=== PATIENT | female | born 1985 | race Caucasian/White ===

== ENCOUNTER 2018-07-18 16:56 | Observation (INO) | payer SELFPAY ==
--- NOTE | 2018-07-18 17:18 | ED ---
HPI Chest Pain - HPI Summary HPI Summary: A 32 y/o F with pert PMHx: Factor 5 presents to ED with c/o CP onset 2-3 days ago. Associated sx: R calf pain that radiates to her thigh, chills, n/v. She takes Coumadin 7.5 mg. She has had a GI bug recently, so she hasnt been able to keep anything (including her Coumadin) down. PMHx: PE 2x, DVT 4x, asthma. [facility]: 2 weeks ago. - History of Current Complaint Chief Complaint: EDChestPainROMI Hx Obtained From: Patient Onset/Duration: Started Days Ago, Still Present Timing: Constant Initial Severity: Moderate Current Severity: Moderate Pain Intensity: 7 Pain Scale Used: 0-10 Numeric Associated Signs and Symptoms: Positive: Chills, Nausea, Calf Pain/Swelling, Vomiting - Allergy/Home Medications Allergies/Adverse Reactions: Allergies Allergy/AdvReac Type Severity Reaction Status Date / Time Cephalosporins Allergy Hives Verified 07/18/18 16:59 ibuprofen Allergy Hives Verified 07/18/18 16:59 iodine Allergy Itching Verified 07/18/18 16:59 ketorolac [From Toradol] Allergy Hives Verified 07/18/18 16:59 moxifloxacin [From Avelox] Allergy Hives Verified 07/18/18 16:59 Penicillins Allergy Hives Verified 07/18/18 16:59 raspberry Allergy Anaphylatic Verified 07/18/18 16:59 Shock tramadol Allergy Hives Verified 07/18/18 16:59 Tree Nuts Allergy Anaphylatic Verified 07/18/18 16:59 Shock Home Medications: Home Medications Acetaminophen TAB* [Tylenol TAB*] 650 mg PO Q4H PRN 07/19/18 [History Confirmed 07/19/18] Albuterol HFA INHALER* [Ventolin HFA Inhaler*] 2 puff INH Q4H PRN 07/19/18 [ History Confirmed 07/19/18] Gabapentin 900 mg PO BEDTIME 07/19/18 [History Confirmed 07/19/18] Quetiapine Fumarate [Seroquel 400 MG] 800 mg PO BEDTIME 07/19/18 [History Confirmed 07/19/18] Sertraline* [Zoloft*] 200 mg PO BEDTIME 07/19/18 [History Confirmed 07/19/18] Trazodone HCl 300 mg PO BEDTIME 07/19/18 [History Confirmed 07/19/18] Warfarin Sodium [Coumadin] 7.5 mg PO BEDTIME 07/19/18 [History Confirmed ] lamoTRIgine [Lamictal] 200 mg PO BEDTIME 07/19/18 [History Confirmed 07/19/18] PMH/Surg Hx/FS Hx/Imm Hx Previously Healthy: No History: Reports: Hx Kidney Stones Psychiatric History: Reports: Hx Post Traumatic Stress Disorder - Surgical History Surgery Procedure, Year, and Place: [facility] Infectious Disease History: No Infectious Disease History: Denies: Traveled Outside the [place] in Last 30 Days - Family History Known Family History: Positive: Cardiac Disease, Diabetes Family History: Breast CA - mom - Social History Occupation: Unemployed - OTHER Lives: Alone Alcohol Use: Occasionally Hx Substance Use: No Substance Use Type: Reports: None Smoking Status (MU): Unknown if Ever Smoked Review of Systems Positive: Chills Positive: Chest Pain Positive: Vomiting, Nausea Musculoskeletal: Other - pos: R calf pain All Other Systems Reviewed And Are Negative: Yes Physical Exam - Summary Physical Exam Summary: GENERAL: Patient is a well-developed and nourished FEMALE who is lying comfortable in the stretcher. Patient is not in any acute respiratory distress. HEAD AND FACE: Normocephalic EYES: PERRLA, EOMI x 2. EARS: Hearing grossly intact. MOUTH: Oropharynx within normal limits. NECK: Supple, trachea is midline, no adenopathy, no JVD, no carotid bruit. CHEST: Symmetric, no tenderness at palpation LUNGS: Clear to auscultation bilaterally. Faint expiratory wheezes. CVS: Regular rhythm, Tachy, S1 and S2 present, no murmurs or gallops appreciated. ABDOMEN: Soft, non-tender. Bowel sounds are normal. No abdominal abnormal pulsations. EXTREMITIES: Full ROM in all major joints, no edema, no cyanosis or clubbing. Tenderness to palpation in R calf. NEURO: Alert and oriented x 3. No acute neurological deficits. Speech is normal and follows commands. SKIN: Dry and warm, pale Triage Information Reviewed: Yes Vital Signs On Initial Exam: Initial Vitals Temp Pulse Resp BP Pulse Ox 96.5 F 126 22 108/88 98 07/18/18 16:59 07/18/18 16:59 07/18/18 16:59 07/18/18 16:59 07/18/18 16:59 Vital Signs Reviewed: Yes Diagnostics - Vital Signs Vital Signs Temp Pulse Resp BP Pulse Ox 07/18/18 16:59 96.5 F 126 22 108/88 98 - Laboratory Result Diagrams: 07/19/18 11:05 07/19/18 10:30 Lab Statement: Any lab studies that have been ordered have been reviewed, and results considered in the medical decision making process. - EKG 1708 Cardiac Rate: Tachycardia - 120 bpm EKG Rhythm: Sinus Tachycardia Summary of EKG Findings: Normal axis. Re-Evaluation - Re-Evaluation 1 Re-Evaluation Time: 18:22 Change: Unchanged Comment: Placing IV line. Chest Pain Course/Dx - Course Course Of Treatment: A 32 y/o F with pert PMHx: Factor 5 presents R calf pain and CP onset 2-3 days ago. She has chills, n/v which is preventing her from taking her Coumadin. EKG is sinus tachy with normal axis. Pt will be signed out to Dr. Alcantar at shift change pending labs, [facility], . - Diagnoses Provider Diagnoses: Vomiting - Critical Care Time Critical Care Time: 30-74 min Discharge - Sign-Out/Discharge Documenting (check all that apply): Sign-Out Patient Signing out patient TO: Oleksandr Alcantar - pending labs, [facility], [place] Patient Received Moderate/Deep Sedation with Procedure: No - Discharge Plan Condition: Guarded Disposition: ADMITTED TO [facility] - Billing Disposition and Condition Condition: GUARDED Disposition: Admitted to [facility] - Attestation Statements Document Initiated by Scribe: Yes Documenting Scribe: Lea Mathur Provider For Whom Scribe is Documenting (Include Credential): Dr. Opal Dorsey MD Scribe Attestation: Lea Flores scribed for Dr. Opal Dorsey MD on 07/19/18 at 1453. Scribe Documentation Reviewed: Yes Provider Attestation: The documentation as recorded by the Lea kemp accurately reflects the service I personally performed and the decisions made by me, Dr. Opal Dorsey MD Status of Scribe Document: Viewed
[2018-07-18] MEDS ORDERED: NS 0.9% 1000 ML** 1,000 ML IV ONE ×3 (17:25→22:37)
[2018-07-18] MEDS ORDERED: Ondansetron INJ* 2 MG/ML VIAL IV ONE (17:25)
[2018-07-18] MEDS ORDERED: diPHENhydraMINE IV* 50 MG in NS 0.9% 50 ML* 50 ML IVPB ONE (17:35)
[2018-07-18] MEDS ORDERED: Acetaminophen TAB* 325 MG PO ONE (17:35)
[2018-07-18] MEDS ORDERED: methylPREDNISolone 125 MG* 2 ML VIAL IV ONE (17:35)
[2018-07-18] MEDS ORDERED: fentaNYL* 50 MCG/ML 2 ML VIAL (100 MCG VIAL) IV SLOW PU ONE ×2 (17:36→20:11)
[2018-07-18] MEDS ORDERED: Iohexol 350* (CONTRAST) 500 ML MDV IV ONE (18:05)
[2018-07-18 18:39] LABS: Hematocrit 30 % (33-41); Hemoglobin 9.5 g/dL (12.0-16.0); Mean Corpuscular HGB Conc 32 g/dL (31-36); Mean Corpuscular Hemoglobin 27 pg (27-31); Mean Corpuscular Volume 83 fL (80-97); Red Blood Count 3.58 10^6 /uL (3.70-4.87); Red Cell Distribution Width 18 % (10.5-15)
[2018-07-18 18:54] LABS: ABS Basophils 0 10^3/ul (0-0.2); ABS Eosinophils 0 10^3/ul (0-0.6); ABS Lymphocytes 1.4 10^3/ul (1.0-4.8); ABS Monocytes 0.4 10^3/ul (0-0.8); ABS Neutrophils 3.2 10^3/ul (1.5-7.7); ABS Nucleated RBC 0 10^3/ul; Eosinophil % 0.1 %; Lymphocyte % 27.8 %; Mean Platelet Volume 7.3 fL (7.4-10.4); Nucleated Red Blood Cells % 0.2; Platelet Count 243 10^3/uL (150-450)
[2018-07-18 19:12] LABS: Activated Partial Thrombo Time 26.5 seconds (26.0-36.3)
[2018-07-18 19:21] LABS: ALT 14 U/L (7-52); AST 7 U/L (13-39); Albumin 3.6 g/dL (3.2-5.2); Albumin/Globulin Ratio 1.7 (1-3); Alkaline Phosphatase 66 U/L (34-104); Anion Gap 4 mmol/L (2-11); BUN/Creatinine Ratio 15.4 (8-20); Blood Urea Nitrogen 10 mg/dL (6-24); CO2 Carbon Dioxide 26 mmol/L (22-32); Calcium 8.1 mg/dL (8.6-10.3); Chloride 108 mmol/L (101-111); EGFR African American 127.8 (>60); EGFR Non-African American 105.6 (>60); Globulin 2.1 g/dL (2-4); Glucose 111 mg/dL (70-100); Potassium 3.7 mmol/L (3.5-5.0); Sodium 138 mmol/L (135-145); Total Protein 5.7 g/dL (6.4-8.9)
[2018-07-18 19:28] LABS: HCG Pregnancy < 0.60 mIU/mL
--- NOTE | 2018-07-18 19:32 | ED ---
Progress - Progress Note Progress Note: Receiving sign-out from Dr. Dorsey to Dr. Alcantar at 1900. U/S Venous Doppler Study Right Lower Extremity Veins: No acute findings. No evidence of deep vein thrombosis. ED Provider has reviewed this report. The patient has continued vomiting while at the hospital who has been unable to take her anticoagulant medication. Patient care was discussed with Dr. Pathak, Hospitalist, who agreed to admit the patient. Re-Evaluation - Re-Evaluation First Eval Re-Evaluation Time: 20:19 Change: Unchanged Comment: Discussed results with patient and plan for admission. Course/Dx - Course Course Of Treatment: Receiving sign-out from Dr. Dorsey to Dr. Alcantar at 1900. U/ S Venous Doppler Study Right Lower Extremity Veins: No acute findings. No evidence of deep vein thrombosis. ED Provider has reviewed this report. The patient has continued vomiting while at the hospital who has been unable to take her anticoagulant medication. The patient's labs and imaging were unremarkable for DVT. At 2020, patient care was discussed with Dr. Pathak, Hospitalist, who agreed to admit the patient. - Diagnoses Provider Diagnoses: Vomiting - Provider Notifications Discussed Care Of Patient With: Piotr Pathak - Hospitalgerard Time Discussed With Above Provider: 20:21 Instructed by Provider To: Admit As Inpatient Discharge - Sign-Out/Discharge Documenting (check all that apply): Patient Departure - Admission Receiving patient FROM: Opal Dorsey - At 1900 Patient Received Moderate/Deep Sedation with Procedure: No - Discharge Plan Disposition: ADMITTED TO [facility] Referrals: No Primary Care Phys,NOPCP [Primary Care Provider] - - Attestation Statements Document Initiated by Scribe: Yes Documenting Scribe: Piotr Mchugh Provider For Whom Angie is Documenting (Include Credential): Oleksandr Alcantar MD [place] Attestation: Piotr Flores, gurpreetibed for Oleksandr Alcantar MD on 07/18/18 at 2026. Status of Scribe Document: Ready
[2018-07-18] MEDS ORDERED: Metoclopramide IV* 5 MG/ML 2 ML VIAL IV SLOW PU ONE (20:22)
[2018-07-18] MEDS ORDERED: Enoxaparin(*) 100 MG/ML SYR SUBCUT ONE (20:23)
[2018-07-18] MEDS ORDERED: Acetaminophen TAB* 325 MG PO PRN (22:21)
[2018-07-18] MEDS ORDERED: Morphine INJ* 2 MG/ML 1 ML SYRINGE (TWO MG - NEW SYRINGE VERSION) IV PRN (22:21)
[2018-07-18] MEDS ORDERED: Ondansetron INJ* 2 MG/ML VIAL IV PRN (22:21)
[2018-07-18] MEDS ORDERED: NS 0.9% 1000 ML** 1,000 ML IV SCH (22:30)
[2018-07-18 22:56] LABS: Magnesium 1.8 mg/dL (1.9-2.7)
[2018-07-19] MEDS ORDERED: Morphine INJ* 2 MG/ML 1 ML SYRINGE (TWO MG - NEW SYRINGE VERSION) IV PRN (00:26)
--- NOTE | 2018-07-19 07:03 | HP ---
CC: [facility], Dr. Bran HISTORY AND PHYSICAL: DATE OF ADMISSION: 07/18/18 PROVIDER: Pia Bedoya NP. ATTENDING PHYSICIAN WHILE IN THE HOSPITAL: Dr. Piotr Pathak (dictated by Pia Bedoya NP). CHIEF COMPLAINT: 1. Vomiting. 2. Chest pain. 3. Right leg pain. HISTORY OF PRESENT ILLNESS: Ms. Penn is a 32-year-old female with a past medical history signifi cant for factor V Leiden, antiphospholipid, Jose-Danlos syndrome, DVT x4, PE x2, PTSD who presented to the emergency room with complaints of right lower leg pain, chest pain, and vomiting. The patien t reports that approximately 2 to 3 days ago she awoke in the night with mild right lower leg pain. She reports over the past 2 to 3 days the pain has become progressively worse. She reports the pain as being sharp. She denies any recent injuries to the leg, any fall. She reports that approximately 1 day after developing the leg pain she developed chest pain that was constant and sharp in her righ t upper chest. She reports that it is not aggravated or alleviated by anything. She does report tabitha t walking makes it more difficult for her to breathe and she reports pain with taking deep breaths. She also reports she is unable to lie flat in her bed. She reports she has been having hot and cold spells at home. The patient also reports approximately 2 days ago she started with vomiting. She do es report recent exposure as her son has recently had a stomach bug. Due to her symptoms of chest pa in, shortness of breath, and right lower leg pain, we were asked to see and evaluate her for admissio n. PAST MEDICAL HISTORY: Significant for: 1. Factor V Leiden. 2. Antiphospholipid. 3. Jose-Danlos syndrome. 4. PTSD. 5. DVT x4. 6. PE x2. PAST SURGICAL HISTORY: 1. Eye surgery. 2. Left rotator cuff repair. 3. Thumb tendon repair. 4. Cholecystectomy. 5. Appendectomy. 6. Roxana fundoplication. 7. x2. 8. Back surgery. 9. Five surgeries on her left knee. 10. AVC filter placement. HOME MEDICATIONS: Include: 1. Trazodone 300 mg p.o. at h.s. 2. Zoloft 200 mg p.o. daily. 3. Seroquel 800 mg p.o. daily. 4. Coumadin 7.5 mg p.o. daily. 5. Lamictal 200 mg p.o. daily. 6. Gabapentin 300 mg at bedtime. These medications need to be confirmed through her pharmacy. Please get a medication list from the [facility]. ALLERGIES: She has an allergy to TRAMADOL, CEPHALOSPORINS, IBUPROFEN, IODINE, TORADOL, AVELOX, PENIC ILLIN, RASPBERRIES, TRAMADOL, TREE NUTS, SHELLFISH. FAMILY HISTORY: Father with a history of an [place] at age 42. No reported history of diabetes. Mother with a history of breast cancer. SOCIAL HISTORY: She denies any tobacco, alcohol, or illicit drug use. She is . She lives w ith her children and mother whom she cares for. Surrogate decision maker in the event she is unable to make her own decisions is her mother. REVIEW OF SYSTEMS: She does report feeling hot and cold tonight. She does report right-sided chest pain that is exacerbated with deep breath and exertion makes it hard to take a deep breath. She farhan es any cough, hemoptysis. She denies any gross hematuria or dysuria. She does report nausea and vom iting. Denies any diarrhea or abdominal pain. She denies any focal weakness or sensory loss, visual complaints, dysphagia, arthralgias, myalgia, rashes, lesions, psychosis, or anxiety. PHYSICAL EXAMINATION GENERAL: At this time, Ms. Penn is sitting on the stretcher in the emergency room. She is pale. She appears her stated age. She does not appear to be in any acute distress at this time. VITAL SIGNS: Blood pressure 136/81, temperature is 97.9, heart rate 68, respirations are 20, O2 satu ration is 99%. HEENT: Head is atraumatic, normocephalic. Eyes: EOMs are intact. Sclerae anicteric, not pale. Or al mucosa appeared to be dry. Her lips are dry and cracked. Her tongue is beefy red. NECK: Supple. LUNGS: Diminished throughout bilaterally. There are no wheezes, rales, or rhonchi. HEART: S1 and S2. Regular rate and rhythm. No murmurs, rubs, or gallops. ABDOMEN: Obese, soft, nontender. Bowel sounds are present x4. EXTREMITIES: She is able to move all 4 extremities with 5/5 strength. Pedal pulses are +2 bilateral ly. No swelling noted to her calves. She does have mild tenderness noted to the right calf. There is no redness, swelling, or firmness. NEUROLOGIC: She is awake, alert and oriented x3. Speech is clear. Thought process is intact. Ther e are no gross focal deficits. SKIN: Intact. DIAGNOSTIC STUDIES/LAB DATA: WBCs are 5.0, RBCs 3.58, hemoglobin 9.5, hematocrit is 30, platelet co unt is 243. INR is 0.90. D-dimer is less than 200. Sodium 138, potassium 3.7, chloride 108, carbon dioxide is 26, anion gap of 4, BUN was 10, creatinine 0.65, glucose is 111, lactic acid 1.2, calcium 8.1, magnesium 1.8. Total bilirubin 0.20, ASTs were 7, ALTs were 14, alkaline phosphatase was 6. Tro ponin was 0.00 x3. HCG was less than 0.6. Acetaminophen was less than 15. She had an electrocardiogram, which showed sinus tachycardia at a rate of 120. She had a venous Doppler of the lower extremities, radiologist's impression: No acute findings. No evidence of deep vein thrombosis of the right lower extremity. She had a chest x-ray. Chest x-ray results are currently pending. IMPRESSION AND PLAN: Ms. Penn is a 32-year-old female with a past medical history significant fo r Jose-Danlos syndrome, factor V Leiden, antiphospholipid, posttraumatic stress disorder, deep vein thrombosis x4; on chronic anticoagulation with IVC filter and pulmonary embolism x2 who presented to the emergency room with complaints of right lower leg pain, chest pain, shortness of breath, and unc ontrollable vomiting for 2 days. She will be admitted under observation for: 1. Chest pain. We will continue to trend her troponins. We will repeat an EKG in the a.m. At this time, I suspect that her chest pain could be related to dehydration of vomiting, though within the d ifferential is pulmonary embolism as the patient's INR is subtherapeutic at 0.90. She was given a fu ll-dose strength of Lovenox in the emergency room of 110 mg. I will continue Lovenox full strength a t 110 mg q.12 hours until we are able to verify current Coumadin dosing from her pharmacy. The patie nt was also seen in the emergency room on 07/13/18. At that time, she had a subtherapeutic INR of 0. 94. It is unclear if the patient is compliant with her anticoagulation. 2. Vomiting. The patient reports that she has been vomiting and unable to keep medications or food or fluids down in 2 days. I will give her normal saline bolus of 1000 cc and then start normal salin e at 125 cc per hour overnight and she can have Zofran as needed for nausea. She can advance her t as tolerated. I suspect that her vomiting is related to viral illness as she was recently exposed to her son who had this "stomach bug." We will continue with IV hydration overnight and reevaluate h er symptoms in the morning. 3. Right lower leg pain. The patient did have venous Doppler in the emergency room. There was no e vidence of deep vein thrombosis. She can have morphine 2 mg q.8 hours as needed for severe pain. Ot herwise, she can take Tylenol 650 mg p.o. q.4 hours. 4. Posttraumatic stress disorder. The patient takes Zoloft, Seroquel, Lamictal for her posttraumati c stress disorder. These doses need to be confirmed with a pharmacy reconciliation in the morning be fore they can be prescribed. 5. Subtherapeutic INR. At this time, I will place her on Lovenox 110 mg subcu q.12 hours as bridgin g therapy after Coumadin dosing is confirmed. She should continue on Lovenox subcu until her INR is above 2. 6. History of DVT and pulmonary embolism. She will be continued on full-strength Lovenox subcu q.12 hours until INR is above 2. We will also resume her Coumadin after dosing is verified. 7. FEN. The patient can have a regular diet, advance as tolerated. 8. DVT prophylaxis. The patient will be on Lovenox full strength, bridging to Coumadin therapy. 9. Code status. She is a full code. TIME SPENT: Time spent on this admission was approximately 60 minutes, greater than half that time w as spent at the bedside reviewing events leading thus far to her hospitalization, performing my physi apple exam, and reviewing my plan of care. I have discussed this with my attending, Dr. Piotr Pathak; he is in agreement with my plan. PIA BEDOYA, MADYSON [id number]/[facility] #: [id number]
[2018-07-19] MEDS ORDERED: Enoxaparin(*) 150 MG/ML 1 ML SYRINGE SUBCUT SCH (09:00)
[2018-07-19 10:53] LABS: INR 0.95 (0.77-1.02)
[2018-07-19 11:08] LABS: BUN/Creatinine Ratio 17.3 (8-20); Calcium 8.8 mg/dL (8.6-10.3); EGFR African American 165.4 (>60); EGFR Non-African American 136.7 (>60); Potassium 4.1 mmol/L (3.5-5.0)
[2018-07-19 11:14] LABS: ABS Basophils 0 10^3/ul (0-0.2); ABS Eosinophils 0 10^3/ul (0-0.6); ABS Lymphocytes 0.9 10^3/ul (1.0-4.8); ABS Monocytes 0.4 10^3/ul (0-0.8); ABS Neutrophils 6.4 10^3/ul (1.5-7.7); ABS Nucleated RBC 0 10^3/ul; Eosinophil % 0.1 %; Hematocrit 27 % (33-41); Hemoglobin 8.8 g/dL (12.0-16.0); Lymphocyte % 11.6 %; Mean Corpuscular HGB Conc 33 g/dL (31-36); Mean Corpuscular Hemoglobin 27 pg (27-31); Mean Corpuscular Volume 82 fL (80-97); Mean Platelet Volume 7.7 fL (7.4-10.4); Nucleated Red Blood Cells % 0; Platelet Count 357 10^3/uL (150-450); Red Blood Count 3.28 10^6 /uL (3.70-4.87); Red Cell Distribution Width 18 % (10.5-15); White Blood Count 7.8 10^3/uL (3.5-10.8)
[2018-07-19 11:19] VITALS: BP 114/53
--- NOTE | 2018-07-19 14:39 | DS ---
DISCHARGE SUMMARY: DATE OF ADMISSION: 07/18/18 DATE OF DISCHARGE: 07/19/18 PRIMARY CARE PROVIDER: Shahrzad Bran D.O. in [place], [place]. ATTENDING PHYSICIAN: Michael Joya M.D.* (DICTATED BY [facility]STOB[facility]) PRIMARY DIAGNOSES: 1. Chest pain. 2. Right lower extremity pain. 3. Vomiting. 4. Subtherapeutic INR. SECONDARY DIAGNOSES: 1. Factor V Leiden. 2. Antiphospholipid. 3. Jose-Danlos syndrome. 4. Posttraumatic stress disorder. 5. History of deep vein thrombosis x4, pulmonary embolism x2. STUDIES WHILE IN THE HOSPITAL: EKG on 07/18/18, sinus tachycardia. Ultrasound right extremity on 07/18/18, impression: No acute findings. No evidence of deep vein thrombosis. Chest x-ray on 07/18/18, impression: Low lung volume, small bibasilar infiltrate suggestive of atelectasis, less likely pneumonia. DISCHARGE MEDICATIONS: Home medications: 1. Albuterol HFA inhaler 2 puffs inhalation q.4 hours p.r.n. 2. Gabapentin 900 mg p.o. at bedtime. 3. Lamotrigine 200 mg p.o. at bedtime. 4. Warfarin sodium 7.5 mg p.o. at bedtime. 5. Trazodone 300 mg p.o. at bedtime. 6. Sertraline 200 mg p.o. at bedtime. 7. Quetiapine fumarate 800 mg p.o. at bedtime. 8. Acetaminophen 650 mg p.o. q.4 hours p.r.n. New home medications: 1. Lovenox 120 mg subcu q.12 hours until INR therapeutic x48 hours. 2. Acetaminophen 650 mg p.o. q.4 hours p.r.n. HISTORY OF PRESENT ILLNESS/HOSPITAL COURSE: Ms. Penn is a 32-year-old female with a past medical history significant for factor V Leiden, antiphospholipid, and Jose-Danlos syndrome. She has a history of DVT x4, PE x2. She has an IVC filter in place. She presented to the ER yesterday with complaints of chest pain, right lower extremity pain, and vomiting. She states that this happened approximately 3 days ago and has progressively worsened. The leg pain is described as sharp. She has no recent injuries to the area. She describes chest pain having developed 1 day after the leg pain. The chest pain is described as sharp and is located in the midsternal area. It is not worsened with breathing or palpation or movement. She reports approximately 2 days of vomiting. The patient notes that she has not been able to take her Lovenox but is unsure how many doses she missed. She believes that she has missed 4 to 7 doses in the last 1 week. She was found to have subtherapeutic INR of 0.90 in the ER. She was admitted to the hospital and started on Lovenox with plans to bridge to Coumadin. Today, her INR remains subtherapeutic at 0.95. She continues Lovenox 110 q.12 hours. She is requesting to leave against medical advice due to her son having an injury. At the time of discharge, she continues to have midsternal chest pain that is nontender to palpation and does not change with breathing or movement. She continues to have right lower extremity pain from the midcalf to the midthigh that is tender to palpation and painful when bending the lower extremity. She denies vomiting. She has occasional nausea which Zofran relieves. She has occasional shortness of breath. She denies abdominal pain, vomiting, diarrhea, or constipation. Ms. Penn will leave today against medical advice. PHYSICAL EXAMINATION: Vital Signs: Temperature 98.2 oral, heart rate 100, respiratory rate 16, oxygen saturation 97% on room air, blood pressure 114/53. General: Ms. Penn is a well-developed, well-nourished, obese, young white woman who is sitting up in bed. She appears to be in no acute distress. HEENT : Visual francis are grossly intact. The pupils are equally round and reactive to light. Extraocular movements are intact. Sclerae are without icterus. Hearing is grossly intact. The oral mucous membranes are moist. There are no lesions. Pharynx is clear. Neck with full range of motion. No lymphadenopathy. Cardiovascular: Tachycardic rate. Regular rhythm. S1, S2 present. No murmurs, rubs, or gallops. There is no JVD. Respiratory: The patient has symmetrical chest expansion with no use of accessory muscles. She has bibasilar slight crackles. There are no wheezes, rubs, or rhonchi. Abdomen is obese. Bowel sounds in all quadrants. Soft and nontender to palpation. No hepatosplenomegaly. Extremities: Skin is warm and smooth bilaterally. There is no edema, clubbing, or cyanosis. Radial and pedal pulses are palpable. The right lower extremity is tender to palpation, more so at the midcalf but tender up to the midthigh posteriorly. Neuro: The patient is awake. She is alert and oriented. She is able to move all of her extremities. She has a steady gait with no impairments. DISCHARGE PLAN: Ms. Penn will be discharged home against medical advice. ACTIVITY: As tolerated. DIET: Heart healthy. MEDICATIONS: As above. EDUCATION: 1. Follow up with primary care provider as soon as possible. Discussed recent hospitalization, Lovenox to Coumadin bridging and recent INR levels as well as continuation of INR monitoring once off Lovenox. 2. Continue Lovenox 120 mg q.12 hours, next dose is 11:00 p.m. 3. Start Coumadin tonight at 5:00 p.m. 4. INR monitoring daily at [facility]. Prescription given for daily lab draws. 5. Continue Lovenox and Coumadin until INR is greater than 2.0 for 48 hours, then discontinue Lovenox. 6. Monitor Coumadin as directed by PCP thereafter. 7. Continue Tylenol p.r.n. pain. 8. The patient is leaving against medical advice. It is noted that workup for chest pain is incomplete. Differential diagnoses include pulmonary embolism and AAA for which the patient was not ruled out. We discussed the possibility of worsening symptoms, injury, or even due to leaving against medical advice. She continues to request to leave against medical advice despite these possibilities. 9. Please return to the ER or nearest hospital if she experiences any worsening of symptoms, shortness of breath, lightheadedness, dizziness, chest discomfort, high fevers, chills, night sweats, loss of consciousness, or any other worrisome signs or symptoms. This is a summarized report of a complex medical history and hospital stay. For further details, please see the entire medical record. TIME SPENT: Approximately 40 minutes was spent on this discharge; greater than half the time was spent [id number] with the patient discussing discharge plans and instructions. LOAN MATTSON, [place] [id number]/[facility] #: [id number] [facility] HOSPITALRonnie
== END 2018-07-19 13:00 | disposition left against medical advice (07) ==
LOC: ED 16:56 → MED 22:21
PROVIDERS: ADMIT Surgery; ATTEND Internal Medicine
DX: R07.9 Chest pain, unspecified (principal); M79.661 Pain in right lower leg; R11.10 Vomiting, unspecified; D68.61 Antiphospholipid syndrome; R79.1 Abnormal coagulation profile; D68.51 Activated protein C resistance; Q79.6 Ehlers-Danlos syndromes; F43.10 Post-traumatic stress disorder, unspecified; Z86.718 Personal history of other venous thrombosis and embolism; Z86.711 Personal history of pulmonary embolism; Z79.01 Long term (current) use of anticoagulants; Z88.0 Allergy status to penicillin
CPT/HCPCS: 36415; 71045; 80048; 80053; 80329; 83605; 83735; 84484; 84702; 85025; 85379; 85610; 85730; 87040; 93005; 96365; 96372; 96375; 99285; G0378; G0480; J1200; J1650; J2270; J2405; J2765; J2930; J3010

== ENCOUNTER 2018-07-23 05:29 | Emergency (ER) | payer MEDICAID, OTHER ==
[2018-07-23] MEDS ORDERED: Ondansetron INJ* 2 MG/ML VIAL IV ONE (05:49)
[2018-07-23] MEDS ORDERED: NS 0.9% 1000 ML** 1,000 ML IV ONE ×2 (05:49→06:44)
[2018-07-23] MEDS ORDERED: Pantoprazole IV* 40 MG IV ONE ×2 (05:50→05:53)
[2018-07-23] MEDS ORDERED: Morphine 4 MG/ML VIAL (1 ml) 4 MG/ML VIAL IV ONE ×2 (05:51→07:28)
--- NOTE | 2018-07-23 06:16 | ED ---
GI/ HPI - HPI Summary HPI Summary: 32 year old female presents with chest pain for the past couple days. She states that she was seen here couple days ago and signed out AMA. She states that since then her chest pain and abd pain have continued and gotten much worst. Since last night, she has been vomiting up blood or coffee ground emesis at least 6 times. She states she is still nauseous. States her chest pain is in the center of her chest. Does not radiate anywhere. She admits shortness of breath. Has history of DVTs and PEs and Factor V. She states she has not been able to keep her Coumadin down but has been taking the Lovenox. She states that she was told she has a ruptured ulcer when signed out AMA. - History of Current Complaint Chief Complaint: EDAbdPain Time Seen by Provider: 07/23/18 05:42 Stated Complaint: BLOOD IN VOMIT/ABD & CHEST PAIN PER PT Pain Intensity: 7 - Allergy/Home Medications Allergies/Adverse Reactions: Allergies Allergy/AdvReac Type Severity Reaction Status Date / Time Cephalosporins Allergy Hives Verified 07/23/18 05:35 ibuprofen Allergy Hives Verified 07/23/18 05:35 iodine Allergy Itching Verified 07/23/18 05:35 ketorolac [From Toradol] Allergy Hives Verified 07/23/18 05:35 moxifloxacin [From Avelox] Allergy Hives Verified 07/23/18 05:35 Penicillins Allergy Hives Verified 07/23/18 05:35 raspberry Allergy Anaphylatic Verified 07/23/18 05:35 Shock tramadol Allergy Hives Verified 07/23/18 05:35 Tree Nuts Allergy Anaphylatic Verified 07/23/18 05:35 Shock PMH/Surg Hx/FS Hx/Imm Hx Endocrine/Hematology History: Reports: Hx Blood Disorders - Factor 5 Leiden, phospholipid disease, Hx Blood Transfusions, Other Endocrine/Hematological Disorders - iron deficiency anemia Denies: Hx Diabetes Cardiovascular History: Reports: Hx Deep Vein Thrombosis, Other Cardiovascular Problems/Disorders - Factor 5 Leiden, phospholipid disease Denies: Hx Hypertension Respiratory History: Reports: Hx Asthma, Hx Pulmonary Embolism GI History: Reports: Hx Gastroesophageal Reflux Disease, Other GI Disorders - Roxana fundoplication History: Reports: Hx Kidney Stones Musculoskeletal History: Reports: Other Musculoskeletal History - Jose-Danlos syndromes Sensory History: Reports: Hx Vision Problem - 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 Denies: Hx Contacts or Glasses, Hx Hearing Aid Opthamlomology History: Reports: Hx Vision Problem - 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 Denies: Hx Contacts or Glasses Psychiatric History: Reports: Hx Post Traumatic Stress Disorder - Surgical History [facility] Infectious Disease History: No Infectious Disease History: Denies: Traveled Outside the [place] in Last 30 Days - Family History Known Family History: Positive: Cardiac Disease, Diabetes Family History: Breast CA - mom - Social History Alcohol Use: None Hx Substance Use: No Substance Use Type: Reports: None Smoking Status (MU): Never Smoked Tobacco Review of Systems Negative: Fever Positive: Chest Pain Positive: Shortness Of Breath. Negative: Cough Positive: Abdominal Pain, Vomiting, Nausea. Negative: Diarrhea All Other Systems Reviewed And Are Negative: Yes Physical Exam Triage Information Reviewed: Yes Vital Signs On Initial Exam: Initial Vitals Temp Pulse Resp BP Pulse Ox 98.4 F 95 17 129/89 97 07/23/18 05:31 07/23/18 05:31 07/23/18 05:31 07/23/18 05:31 07/23/18 05:31 Vital Signs Reviewed: Yes Appearance: Positive: Well-Appearing Skin: Positive: Warm, Dry Head/Face: Positive: Normal Head/Face Inspection Eyes: Positive: Normal, EOMI, KATY, Conjunctiva Clear ENT: Positive: Normal ENT inspection, Pharynx normal, TMs normal Respiratory/Lung Sounds: Positive: Clear to Auscultation, Breath Sounds Present Cardiovascular: Positive: Normal, RRR Abdomen Description: Positive: Soft, Other: - tenderness epigastric Bowel Sounds: Positive: Present Musculoskeletal: Positive: Normal Neurological: Positive: Normal Psychiatric: Positive: Normal Diagnostics - Vital Signs Vital Signs Temp Pulse Resp BP Pulse Ox 07/23/18 05:31 98.4 F 95 17 129/89 97 - Laboratory Result Diagrams: 07/23/18 06:17 07/23/18 07:29 Lab Statement: Any lab studies that have been ordered have been reviewed, and results considered in the medical decision making process. - EKG No standard instances Cardiac Rate: Tachycardia EKG Rhythm: Sinus Tachycardia EKG Comparison: No Significant Change Summary of EKG Findings: sinus tachycardia Re-Evaluation - Re-Evaluation First Eval Re-Evaluation Time: 07:29 Change: Unchanged Comment: requesting more pain meds Second Eval Re-Evaluation Time: 07:56 Comment: no vomiting while in ED. Third Eval Re-Evaluation Time: 08:12 Comment: discussed getting admitted for hememesis and patient declined. will have try some juice and will sign out ama. Fourth Eval Re-Evaluation Time: 08:31 Comment: states wants to IV pain meds. discussed do not want to give more IV meds if is going home. drank a whole thing of juice and now states is nauseous, will try some compazine Fifth Eval Re-Evaluation Time: 09:30 Comment: discussed risks of leaving AMA, patient is A&0x3 and able to make her own decisions, patient signed paperwork GIGU Course/Dx - Course Course Of Treatment: 32 year old female presents with continutation of chest pain which she was admitted for and signed out AMA a couple days ago. She states now she has hememesis and coffee ground emesis since last night. is on coumadin which she is unable to keep down and lovenox. admits to sob. wbc normal. h/h is similiar to previous. inr subtheraputic. wbc normal. d-dimer negative. troponin zero. gave multiple dose of pain medication and nausea medication. discussed admission and patient states she needs to leave. is requesting more pain medication before leaves but has a reaction in the vein near where morphine is given that do not want to have continue to occur. discussed risk of living like continuation of bleeding and and patient still agrees to sign out ama. - Diagnoses Differential Diagnoses - Female: Gastritis, Gastroenteritis (Viral), Peptic Ulcer Disease Provider Diagnoses: Hematemesis, Subtherapeutic international normalized ratio (INR), Chest pain, Abdominal pain Discharge - Sign-Out/Discharge Documenting (check all that apply): Patient Departure Patient Received Moderate/Deep Sedation with Procedure: No - Discharge Plan Condition: Fair Disposition: AGAINST MEDICAL ADVICE Prescriptions: Omeprazole CAP (NF) [Prilosec CAP* 20 MG] 20 mg PO DAILY #14 Patient Education Materials: Hematemesis (ED) Referrals: [facility] [Outside] Additional Instructions: Take omeprazole daily, take an hour apart from other medications Can take Zofran every 6 hours as needed for nausea Drink small amounts of fluid as tolerated When able to eat follow BRAT diet: Bananas, rice, applesauce, toast Take Tylenol for pain as needed every 6 hours establish care with primary Return to ED if continue to vomit blood, worsening chest pain, or any new or worsening symptoms - Billing Disposition and Condition Condition: FAIR Disposition: Against Medical Advice
[2018-07-23] MEDS ORDERED: diPHENhydraMINE IV* 50 MG/ML 1 ml VIAL (BENADRYL) SLOW PUSH ONE ×2 (06:29→06:39)
[2018-07-23 06:40] LABS: ABS Basophils 0 10^3/ul (0-0.2); ABS Eosinophils 0 10^3/ul (0-0.6); ABS Lymphocytes 1.1 10^3/ul (1.0-4.8); ABS Monocytes 0.4 10^3/ul (0-0.8); ABS Neutrophils 3.1 10^3/ul (1.5-7.7); ABS Nucleated RBC 0 10^3/ul; Activated Partial Thrombo Time 29.6 seconds (26.0-36.3); Eosinophil % 0 %; Hematocrit 31 % (33-41); INR 0.85 (0.77-1.02); Lymphocyte % 24.1 %; Mean Corpuscular HGB Conc 32 g/dL (31-36); Mean Corpuscular Hemoglobin 27 pg (27-31); Mean Corpuscular Volume 84 fL (80-97); Nucleated Red Blood Cells % 0.1; Platelet Count 251 10^3/uL (150-450); Red Blood Count 3.71 10^6 /uL (3.70-4.87); Red Cell Distribution Width 18 % (10.5-15); White Blood Count 4.6 10^3/uL (3.5-10.8)
[2018-07-23] MEDS ORDERED: Metoclopramide IV* 5 MG/ML 2 ML VIAL IV SLOW PU ONE (07:18)
[2018-07-23 08:02] LABS: ALT 12 U/L (7-52); AST 10 U/L (13-39); Albumin 3.7 g/dL (3.2-5.2); Albumin/Globulin Ratio 1.6 (1-3); Alkaline Phosphatase 58 U/L (34-104); Anion Gap 6 mmol/L (2-11); BUN/Creatinine Ratio 22.2 (8-20); Blood Urea Nitrogen 14 mg/dL (6-24); CO2 Carbon Dioxide 24 mmol/L (22-32); Calcium 8.5 mg/dL (8.6-10.3); Chloride 107 mmol/L (101-111); EGFR African American 132.5 (>60); EGFR Non-African American 109.5 (>60); Globulin 2.3 g/dL (2-4); Glucose 96 mg/dL (70-100); Potassium 3.9 mmol/L (3.5-5.0); Sodium 137 mmol/L (135-145)
[2018-07-23 08:08] LABS: HCG Pregnancy < 0.60 mIU/mL
[2018-07-23] MEDS ORDERED: HYDROcodone/ACETAMIN 5-325 MG* 1 TAB PO ONE (08:11)
[2018-07-23] MEDS ORDERED: PROCHLORPERAZINE INJ 5 MG/ML 2 ML VIAL IV ONE (08:30)
[2018-07-23 09:30] VITALS: BP 108/80
== END 2018-07-23 09:31 | disposition left against medical advice (07) ==
LOC: ED 05:29
DX: K92.0 Hematemesis (principal); R07.9 Chest pain, unspecified; R10.9 Unspecified abdominal pain; R00.0 Tachycardia, unspecified; D68.51 Activated protein C resistance; Z86.718 Personal history of other venous thrombosis and embolism; D50.9 Iron deficiency anemia, unspecified; J45.909 Unspecified asthma, uncomplicated; K21.9 Gastro-esophageal reflux disease without esophagitis; Z87.442 Personal history of urinary calculi; Q79.6 Ehlers-Danlos syndromes; Z53.21 Procedure and treatment not carried out due to patient leaving prior to being seen by health care provider
CPT/HCPCS: 36415; 80053; 83690; 84484; 84702; 85025; 85379; 85610; 85730; 86850; 86900; 86901; 93005; 96361; 96374; 96375; 96376; 99284; J0780; J1200; J2270; J2405; J2765

== ENCOUNTER 2018-07-26 12:01 | Observation (INO) | payer OTHER ==
[2018-07-26] MEDS ORDERED: NS 0.9% 1000 ML** 1,000 ML IV ONE ×2 (13:09→17:13)
[2018-07-26] MEDS ORDERED: Ondansetron INJ* 2 MG/ML VIAL IV ONE ×2 (13:33→14:45)
[2018-07-26] MEDS ORDERED: Morphine 4 MG/ML VIAL (1 ml) 4 MG/ML VIAL IV ONE ×2 (13:33→16:52)
[2018-07-26 14:15] LABS: ABS Basophils 0 10^3/ul (0-0.2); ABS Eosinophils 0 10^3/ul (0-0.6); ABS Monocytes 0.4 10^3/ul (0-0.8); ABS Nucleated RBC 0 10^3/ul; Eosinophil % 0 %; Hematocrit 26 % (33-41); Hemoglobin 8.4 g/dL (12.0-16.0); Lymphocyte % 22.5 %; Mean Corpuscular HGB Conc 33 g/dL (31-36); Mean Corpuscular Hemoglobin 27 pg (27-31); Mean Corpuscular Volume 82 fL (80-97); Mean Platelet Volume 7.1 fL (7.4-10.4); Nucleated Red Blood Cells % 0; Platelet Count 280 10^3/uL (150-450); Red Cell Distribution Width 19 % (10.5-15); White Blood Count 4.4 10^3/uL (3.5-10.8)
[2018-07-26 14:23] LABS: Activated Partial Thrombo Time 30.6 seconds (26.0-36.3); INR 0.96 (0.77-1.02)
[2018-07-26 14:32] LABS: ALT 11 U/L (7-52); AST 10 U/L (13-39); Albumin 3.8 g/dL (3.2-5.2); Albumin/Globulin Ratio 1.7 (1-3); Alkaline Phosphatase 56 U/L (34-104); Amylase 17 U/L (29-103); Anion Gap 4 mmol/L (2-11); BUN/Creatinine Ratio 16.1 (8-20); Blood Urea Nitrogen 10 mg/dL (6-24); C Reactive Protein 17.65 mg/L (<8.01); CO2 Carbon Dioxide 25 mmol/L (22-32); Calcium 8.6 mg/dL (8.6-10.3); Chloride 106 mmol/L (101-111); EGFR Non-African American 111.6 (>60); Globulin 2.3 g/dL (2-4); Glucose 96 mg/dL (70-100); Magnesium 1.9 mg/dL (1.9-2.7); Potassium 4.1 mmol/L (3.5-5.0); Sodium 135 mmol/L (135-145); Total Protein 6.1 g/dL (6.4-8.9)
[2018-07-26 14:38] LABS: HCG Pregnancy < 0.60 mIU/mL
--- NOTE | 2018-07-26 15:05 | ED ---
GI/ HPI - HPI Summary HPI Summary: Patient is a 32-year-old female who presents to the ED for the fourth time in a week and a half with symptoms of "chest pain" which is most notably over the midepigastric region and nonradiating. She is also endorsing nausea, vomiting. She endorses hematemesis with BRB for the first week, but denies this currently. She is also endorsing black stools over the past 2-3 days. 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 She subsequently returned 3 days ago and again left AMA. She states she was told she had "gastric ulcers" but they had not performed a scope at that point here in the ED. She was sent home with Lovenox 3 days ago she has been unable to keep her Coumadin dose down due to vomiting. She was noted to be subtherapeutic at INR 0.90. She did have a venous Doppler which showed no evidence of a DVT. There does not appear to be a CT chest done in the last week , chest x-ray completed and read as normal. History includes Jose-Danlos syndrome, antiphospholipid, factor V Leiden, DVT 4, PE 2 and PTSD. History of GI bleed in 2007 with platelets and red blood cells repleted at [facility] in [place]. She was seen previously for hematemesis, pain to the right leg as well as chest pain. She has been taking Coumadin times approximately 6 months after being switched from our request. She states despite her previous Coumadin and Eliquis dosages, she continued to have DVTs and PEs. Patient has IVC filter. She is also on Zoloft, Seroquel, Lamictal, gabapentin and trazodone. - History of Current Complaint Chief Complaint: EDGIBleed Time Seen by Provider: 07/26/18 12:27 Stated Complaint: VOMITING BLOOD/TARY BLACK STOOL/CHEST PAIN PER PT Hx Obtained From: Patient Onset/Duration: Started Hours Ago Timing: Constant Severity: Moderate Current Severity: Moderate Pain Intensity: 7 Pain Characteristics: Sharp Associated Signs and Symptoms: Positive: Hematemesis, Vomiting, Black Tarry Stool, Blood w/Stool Aggravating Factor(s): Nothing Alleviating Factor(s): Nothing - Allergy/Home Medications Allergies/Adverse Reactions: Allergies Allergy/AdvReac Type Severity Reaction Status Date / Time Cephalosporins Allergy Hives Verified 07/23/18 05:35 ibuprofen Allergy Hives Verified 07/23/18 05:35 iodine Allergy Itching Verified 07/23/18 05:35 ketorolac [From Toradol] Allergy Hives Verified 07/23/18 05:35 moxifloxacin [From Avelox] Allergy Hives Verified 07/23/18 05:35 Penicillins Allergy Hives Verified 07/23/18 05:35 raspberry Allergy Anaphylatic Verified 07/23/18 05:35 Shock tramadol Allergy Hives Verified 07/23/18 05:35 Tree Nuts Allergy Anaphylatic Verified 07/23/18 05:35 Shock PMH/Surg Hx/FS Hx/Imm Hx Previously Healthy: Yes Endocrine/Hematology History: Reports: Hx Blood Disorders - Factor 5 Leiden, phospholipid disease, Hx Blood Transfusions, Other Endocrine/Hematological Disorders - iron deficiency anemia Denies: Hx Diabetes Cardiovascular History: Reports: Hx Deep Vein Thrombosis, Other Cardiovascular Problems/Disorders - Factor 5 Leiden, phospholipid disease Denies: Hx Hypertension Respiratory History: Reports: Hx Asthma, Hx Pulmonary Embolism GI History: Reports: Hx Gastroesophageal Reflux Disease, Other GI Disorders - Roxana fundoplication History: Reports: Hx Kidney Stones Musculoskeletal History: Reports: Other Musculoskeletal History - Jose-Danlos syndromes Sensory History: Reports: Hx Vision Problem - 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 Denies: Hx Contacts or Glasses, Hx Hearing Aid Opthamlomology History: Reports: Hx Vision Problem - 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 Denies: Hx Contacts or Glasses Psychiatric History: Reports: Hx Post Traumatic Stress Disorder - Surgical History Surgery Procedure, Year, and Place: [facility] - Immunization History Hx Pertussis Vaccination: No Immunizations Up to Date: Yes Infectious Disease History: No Infectious Disease History: Denies: Traveled Outside the [place] in Last 30 Days - Family History Known Family History: Positive: Cardiac Disease, Diabetes Family History: Breast CA - mom - Social History Occupation: Unemployed Lives: With Family Alcohol Use: None Hx Substance Use: No Substance Use Type: Reports: None Smoking Status (MU): Never Smoked Tobacco Review of Systems Constitutional: Negative Negative: Fever, Chills, Fatigue, Skin Diaphoresis Negative: Palpitations, Chest Pain Negative: Shortness Of Breath, Cough Positive: Abdominal Pain, Vomiting, Nausea. Negative: Diarrhea Genitourinary: Negative Positive: no symptoms reported, see HPI Negative: Arthralgia, Myalgia Skin: Negative All Other Systems Reviewed And Are Negative: Yes Physical Exam Triage Information Reviewed: Yes Vital Signs On Initial Exam: Initial Vitals Temp Pulse Resp BP Pulse Ox 97 F 104 14 187/107 100 07/26/18 12:05 07/26/18 12:05 07/26/18 12:05 07/26/18 12:05 07/26/18 12:05 Vital Signs Reviewed: Yes Appearance: Positive: Well-Appearing, Well-Nourished Skin: Positive: Warm, Skin Color Reflects Adequate Perfusion Head/Face: Positive: Normal Head/Face Inspection Eyes: Positive: EOMI, Conjunctiva Clear Neck: Positive: Supple, No Lymphadenopathy Respiratory/Lung Sounds: Positive: Clear to Auscultation, Breath Sounds Present Cardiovascular: Positive: RRR, Pulses are Symmetrical in both Upper and Lower Extremities Abdomen Description: Positive: Nontender, Soft. Negative: CVA Tenderness (R) Musculoskeletal: Positive: Normal, Strength/ROM Intact Neurological: Positive: Speech Normal Psychiatric: Positive: Normal, Affect/Mood Appropriate AVPU Assessment: Alert Diagnostics - Vital Signs Vital Signs Temp Pulse Resp BP Pulse Ox 07/26/18 14:06 20 07/26/18 13:00 96 21 96 07/26/18 12:59 98 25 100/79 94 07/26/18 12:32 103 25 119/73 97 07/26/18 12:28 20 07/26/18 12:05 97 F 104 14 187/107 100 - Laboratory Lab Results: Lab Results 07/26/18 07/26/18 07/26/18 Range/Units 14:06 14:06 14:06 WBC 4.4 (3.5-10.8) 10^3/uL RBC 3.10 L (3.70-4.87) 10^6 /uL Hgb 8.4 L (12.0-16.0) g/dL Hct 26 L (33-41) % MCV 82 (80-97) fL MCH 27 (27-31) pg MCHC 33 (31-36) g/dL RDW 19 H (10.5-15) % Plt Count 280 (150-450) 10^3/uL MPV 7.1 L (7.4-10.4) fL Neut % (Auto) 68.6 % Lymph % (Auto) 22.5 % Clark % (Auto) 8.2 % Eos % (Auto) 0 % Baso % (Auto) 0.7 % Absolute Neuts (auto) 3.0 (1.5-7.7) 10^3/ul Absolute Lymphs (auto) 1.0 (1.0-4.8) 10^3/ul Absolute Monos (auto) 0.4 (0-0.8) 10^3/ul Absolute Eos (auto) 0 (0-0.6) 10^3/ul Absolute Basos (auto) 0 (0-0.2) 10^3/ul Absolute Nucleated RBC 0 10^3/ul Nucleated RBC % 0 INR (Anticoag Therapy) 0.96 (0.77-1.02) APTT 30.6 (26.0-36.3) seconds Sodium 135 (135-145) mmol/L Potassium 4.1 (3.5-5.0) mmol/L Chloride 106 (101-111) mmol/L Carbon Dioxide 25 (22-32) mmol/L Anion Gap 4 (2-11) mmol/L BUN 10 (6-24) mg/dL Creatinine 0.62 (0.51-0.95) mg/dL Est GFR ( Amer) 135.0 (>60) Est GFR (Non-Af Amer) 111.6 (>60) BUN/Creatinine Ratio 16.1 (8-20) Glucose 96 (70-100) mg/dL Lactic Acid (0.5-2.0) mmol/L Calcium 8.6 (8.6-10.3) mg/dL Magnesium 1.9 (1.9-2.7) mg/dL Total Bilirubin 0.30 (0.2-1.0) mg/dL AST 10 L (13-39) U/L ALT 11 (7-52) U/L Alkaline Phosphatase 56 (34-104) U/L C-Reactive Protein 17.65 H (<8.01) mg/L Total Protein 6.1 L (6.4-8.9) g/dL Albumin 3.8 (3.2-5.2) g/dL Globulin 2.3 (2-4) g/dL Albumin/Globulin Ratio 1.7 (1-3) Amylase 17 L (29-103) U/L Lipase < 10 L (11.0-82.0) U/L Beta HCG, Quant < 0.60 mIU/mL 07/26/18 Range/Units 14:06 WBC (3.5-10.8) 10^3/uL RBC (3.70-4.87) 10^6 /uL Hgb (12.0-16.0) g/dL Hct (33-41) % MCV (80-97) fL MCH (27-31) pg MCHC (31-36) g/dL RDW (10.5-15) % Plt Count (150-450) 10^3/uL MPV (7.4-10.4) fL Neut % (Auto) % Lymph % (Auto) % Clark % (Auto) % Eos % (Auto) % Baso % (Auto) % Absolute Neuts (auto) (1.5-7.7) 10^3/ul Absolute Lymphs (auto) (1.0-4.8) 10^3/ul Absolute Monos (auto) (0-0.8) 10^3/ul Absolute Eos (auto) (0-0.6) 10^3/ul Absolute Basos (auto) (0-0.2) 10^3/ul Absolute Nucleated RBC 10^3/ul Nucleated RBC % INR (Anticoag Therapy) (0.77-1.02) APTT (26.0-36.3) seconds Sodium (135-145) mmol/L Potassium (3.5-5.0) mmol/L Chloride (101-111) mmol/L Carbon Dioxide (22-32) mmol/L Anion Gap (2-11) mmol/L BUN (6-24) mg/dL Creatinine (0.51-0.95) mg/dL Est GFR ( Amer) (>60) Est GFR (Non-Af Amer) (>60) BUN/Creatinine Ratio (8-20) Glucose (70-100) mg/dL Lactic Acid 0.5 (0.5-2.0) mmol/L Calcium (8.6-10.3) mg/dL Magnesium (1.9-2.7) mg/dL Total Bilirubin (0.2-1.0) mg/dL AST (13-39) U/L ALT (7-52) U/L Alkaline Phosphatase (34-104) U/L C-Reactive Protein (<8.01) mg/L Total Protein (6.4-8.9) g/dL Albumin (3.2-5.2) g/dL Globulin (2-4) g/dL Albumin/Globulin Ratio (1-3) Amylase (29-103) U/L Lipase (11.0-82.0) U/L Beta HCG, Quant mIU/mL Result Diagrams: 07/26/18 14:06 07/26/18 14:06 Lab Statement: Any lab studies that have been ordered have been reviewed, and results considered in the medical decision making process. GIGU Course/Dx - Course Course Of Treatment: During the course of treatment, the patient is evaluated for midepigastric pain radiating to the right upper quadrant noted as a burning and aching, rated at 9/10. She is also endorses having nausea and vomiting with hematemesis and melena. She endorses black stools. Discussed with the patient she will need to be admitted for possible GI bleed as she has been seen here twice in the past week or so. She is currently on Lovenox and has not bridged back to her Coumadin dose. I discussed the case with Dr. eugene Rdz who agrees to admit. Patient states she is willing to stay for admission to [facility]. She is given Zofran 4 mg IV and morphine 4 mg IV. She is also given Maalox 60 mL and famotidine 40 mg. - Diagnoses Differential Diagnoses - Female: Other - GI bleed, hematemesis, melena, midepigastric pain chest pain, PE Provider Diagnoses: Epigastric pain, Hematemesis - Physician Notifications Discussed Care Of Patient With: Carole Bolaños Instructed by Provider To: Admit As Inpatient Discharge - Sign-Out/Discharge Documenting (check all that apply): Patient Departure Patient Received Moderate/Deep Sedation with Procedure: No - Discharge Plan Condition: Fair Disposition: ADMITTED TO [facility] Referrals: Reuben JAMA,Bo Chapa [Primary Care Provider] - - Billing Disposition and Condition Condition: FAIR Disposition: Admitted to [facility]
[2018-07-26] MEDS ORDERED: Al Hydrox/Mg Hydrox/Simet LIQ* 30 ML UDC PO ONE (15:09)
[2018-07-26] MEDS ORDERED: Famotidine IV* 10 MG/ML 2 ML (20 mg) IV SLOW PU ONE (15:09)
[2018-07-26 17:29] LABS: Urine Appearance Cloudy; Urine Bacteria 3+ (Absent); Urine Bilirubin Negative (Negative); Urine Blood Negative (Negative); Urine Color Yellow; Urine Glucose Negative (Negative); Urine Ketones Negative (Negative); Urine Nitrite Negative (Negative); Urine Protein Negative (Negative); Urine Red Blood Cell 1+(3-5/hpf) (Absent); Urine Specific Gravity 1.006 (1.010-1.030); Urine Squamous Epithelial Cell Present (Absent); Urine Urobilinogen Negative (Negative); Urine White Blood Cell 2+(11-20/hpf) (Absent)
[2018-07-26] MEDS ORDERED: Pantoprazole IV* 40 MG IV ONE (18:11)
[2018-07-26] MEDS ORDERED: Albuterol HFA INHALER* 8 gm MDI INH PRN (18:17)
--- NOTE | 2018-07-26 18:38 | ADMNOTE ---
Subjective Date of Service: 07/26/18 Interval History: ADMISSION HISTORY AND PHYSICAL EXAM: Allergies Allergy/AdvReac Type Severity Reaction Status Date / Time Cephalosporins Allergy Hives Verified 07/26/18 17:35 ibuprofen Allergy Hives Verified 07/26/18 17:35 iodine Allergy Itching Verified 07/26/18 17:35 ketorolac [From Toradol] Allergy Hives Verified 07/26/18 17:35 moxifloxacin [From Avelox] Allergy Hives Verified 07/26/18 17:35 Penicillins Allergy Hives Verified 07/26/18 17:35 raspberry Allergy Anaphylatic Verified 07/26/18 17:35 Shock shellfish derived Allergy Anaphylatic Verified 07/26/18 17:35 Shock tramadol Allergy Hives Verified 07/26/18 17:35 Tree Nuts Allergy Anaphylatic Verified 07/26/18 17:35 Shock Home Medications Medication Instructions Recorded Confirmed Type Acetaminophen TAB* [Tylenol TAB*] 650 mg PO Q4H PRN tab 07/19/18 07/26/18 Rx Albuterol HFA INHALER* [Ventolin 2 puff INH Q4H PRN 07/19/18 07/26/18 History HFA Inhaler*] Enoxaparin(*) [Lovenox(*)] 120 mg SUBCUT Q12H #28 syringe 07/19/18 07/26/18 Rx Gabapentin 900 mg PO BEDTIME 07/19/18 07/26/18 History Quetiapine Fumarate [Seroquel 400 800 mg PO BEDTIME 07/19/18 07/26/18 History MG] Sertraline* [Zoloft*] 200 mg PO BEDTIME 07/19/18 07/26/18 History Trazodone HCl 300 mg PO BEDTIME 07/19/18 07/26/18 History Warfarin Sodium [Coumadin] 7.5 mg PO BEDTIME 07/19/18 07/26/18 History lamoTRIgine [Lamictal] 200 mg PO BEDTIME 07/19/18 07/26/18 History Omeprazole CAP (NF) [Prilosec CAP* 20 mg PO DAILY #14 grant. 07/23/18 07/26/18 Rx 20 MG] HPI: For about a week patient has had R abdominal pain, N&V. No diarrhea. ? one black stool. 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 She has arranged for [employer] children[employer] shoes and is willing to be admitted. She can't keep her warfarin down. Family History: Findings - Father [place] age 42, mother breast ca. Social History: Findings - Visiting her grandmother now. Her mother is her SDM. , 2 children in her custody. No alcohol or tobacco use. Past Medical History: Findings - Hx DVT/PE, IVC filter, factor V Leiden, antiphospholipid Ab, Roxana fundopkicatin 2016, appy, jessica, x 2. Review of Systems - Measurements Intake and Output: Intake and Output Last 24 Hours 07/24/18 07/25/18 07/26/18 07/27/18 06:59 06:59 06:59 06:59 Intake Total 1000 Balance 1000 Weight 242 lb Intake: IV Fluids 1000 - Review of Systems Constitutional Symptoms: Negative: Weight Gain, Weight Loss, Weakness, Fatigue, Fever, Night Sweats, Unexplained Falls, Other Dermatology: Positive: Normal HEENT: Positive: Normal Eyes: Positive: Normal Thyroid: Positive: Normal Pulmonary: Positive: Normal Gastroenterology: Positive: Abdominal Pain, Nausea, Vomiting Genital - Urinary: Positive: Normal Genitourinay - Female: Positive: Menses Normal - Last menses 07/06. Denies any chance of being now. Musculoskeletal: Negative: Joint Pain, Joint Stiffness, Arthritis, Osteoporosis, Low Back Pain , Sciatica, Joint Deformities, Kyphoscoliosis, Other Endocrinology: Positive: Normal Hematologic/Lymphatic: Positive: Anemia Neurology: Positive: Normal Psychiatry: Positive: Anxiety Allergic/Immunologic: Negative: Hx Anaphylaxis, Hx Angioedema, Hx Environmental, Hx Seasonal, Athsma, Hx HIV, Immunocompromise, Swollen Glands LymphNodes, Other Objective Active Medications: Albuterol (Ventolin Hfa Inhaler*) 2 puff INH Q4H PRN PRN Reason: SOB/WHEEZING Gabapentin (Neurontin Cap(*)) 900 mg PO BEDTIME DALILA Potassium Chloride/Dextrose (D5w 1/2 Ns Kcl 20 Meq 1000 Ml*) 1,000 mls @ 125 mls/hr IV PER RATE DALILA Pantoprazole Sodium (Protonix Iv Bag*) 80 mg in 250 mls @ 25 mls/hr IVPB Q10H DALILA Non-Formulary Medication (Lamotrigine [Lamictal]) 200 mg PO BEDTIME DALILA Non-Formulary Medication (Quetiapine Fumarate [Seroquel 400 Mg]) 800 mg PO BEDTIME DALILA Non-Formulary Medication (Trazodone Hcl [Trazodone Hcl]) 300 mg PO BEDTIME DALILA Sertraline HCl (Zoloft*) 200 mg PO BEDTIME DALILA Vital Signs - 8 hr 07/26/18 07/26/18 07/26/18 12:05 12:28 12:32 Temperature 97 F Pulse Rate 104 103 Respiratory 14 20 25 Rate Blood Pressure 187/107 119/73 (mmHg) O2 Sat by Pulse 100 97 Oximetry 07/26/18 07/26/18 07/26/18 12:59 13:00 14:00 Temperature Pulse Rate 98 96 Respiratory 25 21 23 Rate Blood Pressure 100/79 (mmHg) O2 Sat by Pulse 94 96 Oximetry 07/26/18 07/26/18 07/26/18 14:06 15:00 15:06 Temperature Pulse Rate Respiratory 20 33 23 Rate Blood Pressure 115/61 (mmHg) O2 Sat by Pulse Oximetry 07/26/18 07/26/18 07/26/18 16:01 16:37 17:01 Temperature Pulse Rate 93 92 90 Respiratory 18 24 20 Rate Blood Pressure 111/80 (mmHg) O2 Sat by Pulse 96 95 99 Oximetry 07/26/18 07/26/18 07/26/18 17:10 17:12 17:36 Temperature Pulse Rate 87 88 Respiratory 18 17 Rate Blood Pressure 92/52 98/67 (mmHg) O2 Sat by Pulse 94 95 Oximetry 07/26/18 07/26/18 07/26/18 17:57 18:00 18:06 Temperature Pulse Rate 92 96 95 Respiratory Rate Blood Pressure 106/71 105/83 (mmHg) O2 Sat by Pulse 97 97 94 Oximetry 07/26/18 18:11 Temperature 98.2 F Pulse Rate Respiratory Rate Blood Pressure (mmHg) O2 Sat by Pulse Oximetry Oxygen Devices in Use Now: None Appearance: Alert, partly up on ED stretcher. Somewhat anxious, otherwise looks comfortable. Eyes: No Scleral Icterus Ears/Nose/Mouth/Throat: Clear Oropharnyx, Mucous Membranes Moist Neck: NL Appearance and Movements; NL JVP, No Thyroid Enlargement, Masses Respiratory: Symmetrical Chest Expansion and Respiratory Effort, Clear to Auscultation, Clear to Percussion Cardiovascular: NL Sounds; No Murmurs; No JVD, RRR, No Edema, - Abdominal: No Hepatosplenomegaly, - - Soft, obese, mil-mod R abd tenderness Extremities: No Edema, No Clubbing, Cyanosis, - Skin: No Rash or Ulcers, No Nodules or Sclerosis, - Neurological: Alert and Oriented x 3, NL Sensation Result Diagrams: 07/26/18 14:06 07/26/18 14:06 Additional Lab and Data: Lab Results 07/26/18 07/26/18 07/26/18 Range/Units 14:06 14:06 14:06 WBC 4.4 (3.5-10.8) 10^3/uL RBC 3.10 L (3.70-4.87) 10^6 /uL Hgb 8.4 L (12.0-16.0) g/dL Hct 26 L (33-41) % MCV 82 (80-97) fL MCH 27 (27-31) pg MCHC 33 (31-36) g/dL RDW 19 H (10.5-15) % Plt Count 280 (150-450) 10^3/uL MPV 7.1 L (7.4-10.4) fL Neut % (Auto) 68.6 % Lymph % (Auto) 22.5 % Drew % (Auto) 8.2 % Eos % (Auto) 0 % Baso % (Auto) 0.7 % Absolute Neuts (auto) 3.0 (1.5-7.7) 10^3/ul Absolute Lymphs (auto) 1.0 (1.0-4.8) 10^3/ul Absolute Monos (auto) 0.4 (0-0.8) 10^3/ul Absolute Eos (auto) 0 (0-0.6) 10^3/ul Absolute Basos (auto) 0 (0-0.2) 10^3/ul Absolute Nucleated RBC 0 10^3/ul Nucleated RBC % 0 INR (Anticoag Therapy) 0.96 (0.77-1.02) APTT 30.6 (26.0-36.3) seconds Sodium 135 (135-145) mmol/L Potassium 4.1 (3.5-5.0) mmol/L Chloride 106 (101-111) mmol/L Carbon Dioxide 25 (22-32) mmol/L Anion Gap 4 (2-11) mmol/L BUN 10 (6-24) mg/dL Creatinine 0.62 (0.51-0.95) mg/dL Est GFR ( Amer) 135.0 (>60) Est GFR (Non-Af Amer) 111.6 (>60) BUN/Creatinine Ratio 16.1 (8-20) Glucose 96 (70-100) mg/dL Lactic Acid (0.5-2.0) mmol/L Calcium 8.6 (8.6-10.3) mg/dL Magnesium 1.9 (1.9-2.7) mg/dL Total Bilirubin 0.30 (0.2-1.0) mg/dL AST 10 L (13-39) U/L ALT 11 (7-52) U/L Alkaline Phosphatase 56 (34-104) U/L C-Reactive Protein 17.65 H (<8.01) mg/L Total Protein 6.1 L (6.4-8.9) g/dL Albumin 3.8 (3.2-5.2) g/dL Globulin 2.3 (2-4) g/dL Albumin/Globulin Ratio 1.7 (1-3) Amylase 17 L (29-103) U/L Lipase < 10 L (11.0-82.0) U/L Beta HCG, Quant < 0.60 mIU/mL 07/26/18 Range/Units 14:06 WBC (3.5-10.8) 10^3/uL RBC (3.70-4.87) 10^6 /uL Hgb (12.0-16.0) g/dL Hct (33-41) % MCV (80-97) fL MCH (27-31) pg MCHC (31-36) g/dL RDW (10.5-15) % Plt Count (150-450) 10^3/uL MPV (7.4-10.4) fL Neut % (Auto) % Lymph % (Auto) % Drew % (Auto) % Eos % (Auto) % Baso % (Auto) % Absolute Neuts (auto) (1.5-7.7) 10^3/ul Absolute Lymphs (auto) (1.0-4.8) 10^3/ul Absolute Monos (auto) (0-0.8) 10^3/ul Absolute Eos (auto) (0-0.6) 10^3/ul Absolute Basos (auto) (0-0.2) 10^3/ul Absolute Nucleated RBC 10^3/ul Nucleated RBC % INR (Anticoag Therapy) (0.77-1.02) APTT (26.0-36.3) seconds Sodium (135-145) mmol/L Potassium (3.5-5.0) mmol/L Chloride (101-111) mmol/L Carbon Dioxide (22-32) mmol/L Anion Gap (2-11) mmol/L BUN (6-24) mg/dL Creatinine (0.51-0.95) mg/dL Est GFR ( Amer) (>60) Est GFR (Non-Af Amer) (>60) BUN/Creatinine Ratio (8-20) Glucose (70-100) mg/dL Lactic Acid 0.5 (0.5-2.0) mmol/L Calcium (8.6-10.3) mg/dL Magnesium (1.9-2.7) mg/dL Total Bilirubin (0.2-1.0) mg/dL AST (13-39) U/L ALT (7-52) U/L Alkaline Phosphatase (34-104) U/L C-Reactive Protein (<8.01) mg/L Total Protein (6.4-8.9) g/dL Albumin (3.2-5.2) g/dL Globulin (2-4) g/dL Albumin/Globulin Ratio (1-3) Amylase (29-103) U/L Lipase (11.0-82.0) U/L Beta HCG, Quant mIU/mL Microbiology and Other Data: Microbiology 07/26/18 13:09 Stool Occult Blood (JOSEY) - Final Stool Assess/Plan/Problems-Billing Assessment: - Patient Problems (1) Abdominal pain Current Visit: Yes Status: Acute Code(s): R10.9 - UNSPECIFIED ABDOMINAL PAIN SNOMED Code(s): 26374319 Comment: PPI drip, MS and ondansetron PRN. Discussed with Dr. Suresh, Dr. Chatman to see 07/27. NPO after MN, clear liquids today. Repeat CBC 07/26 9 PM, 07/27. Iron studies 07/27. (2) Coagulopathy Current Visit: Yes Status: Acute Comment: Both factor V Leiden and antiphospholipid Ab, note has IVC filter. DVT prophylaxis dose of enoxaparinonly to start as not clear if having GI bleed. Re-start full dose enoxaparin when appropriate or consider DOAC. (3) Morbid obesity Current Visit: Yes Status: Acute Code(s): E66.01 - MORBID (SEVERE) OBESITY DUE TO EXCESS CALORIES SNOMED Code(s): 814909807 Comment: BMI 42.9. (4) Psychiatric diagnosis Current Visit: Yes Status: Acute Code(s): F99 - MENTAL DISORDER, NOT OTHERWISE SPECIFIED SNOMED Code(s): 64475889 Comment: Continue home doses quetiapine, lamotrigine, trazodone, sertralin, all in large doses.
[2018-07-26] MEDS: traZODone TAB* 100 MG PO SCH (22:03)
[2018-07-26] MEDS: Sertraline* 100 MG TAB PO SCH (22:04)
[2018-07-26] MEDS: lamoTRIgine TAB(*) 100 MG PO SCH (22:04)
[2018-07-26] MEDS: Gabapentin CAP(*) 300 MG PO SCH (22:05)
[2018-07-26] MEDS: QUEtiapine TAB* 300 MG PO SCH (22:05)
[2018-07-26] MEDS: QUEtiapine TAB* 100 MG PO SCH (22:05)
[2018-07-26] MEDS: Enoxaparin(*) 40 MG/0.4 ML SYR SUBCUT SCH (22:06)
[2018-07-26] MEDS: Morphine 4 MG/ML VIAL (1 ml) 4 MG/ML VIAL IV PRN (22:21)
[2018-07-26 22:26] LABS: ABS Basophils 0 10^3/ul (0-0.2); ABS Eosinophils 0 10^3/ul (0-0.6); ABS Lymphocytes 1.1 10^3/ul (1.0-4.8); ABS Monocytes 0.4 10^3/ul (0-0.8); ABS Neutrophils 2.5 10^3/ul (1.5-7.7); ABS Nucleated RBC 0 10^3/ul; Eosinophil % 0 %; Hematocrit 24 % (33-41); Hemoglobin 7.9 g/dL (12.0-16.0); Lymphocyte % 28.3 %; Mean Corpuscular HGB Conc 33 g/dL (31-36); Mean Corpuscular Hemoglobin 28 pg (27-31); Mean Corpuscular Volume 83 fL (80-97); Mean Platelet Volume 6.6 fL (7.4-10.4); Nucleated Red Blood Cells % 0.2; Platelet Count 243 10^3/uL (150-450); Red Blood Count 2.85 10^6 /uL (3.70-4.87); Red Cell Distribution Width 18 % (10.5-15)
[2018-07-26] MEDS: D5W 1/2 NS KCl 20 Meq 1000 ML* 1,000 ML IV SCH (22:38)
[2018-07-26] MEDS: Ondansetron INJ* 2 MG/ML VIAL IV PRN (22:46)
[2018-07-26] MEDS: Pantoprazole* 80 mg IN NS 80 MG/250 ML BAG IVPB SCH (23:46)
[2018-07-27] MEDS: Morphine 4 MG/ML VIAL (1 ml) 4 MG/ML VIAL IV PRN ×5 (05:30→23:57)
[2018-07-27] MEDS: Ondansetron INJ* 2 MG/ML VIAL IV PRN ×3 (05:30→21:33)
[2018-07-27] MEDS: Pantoprazole* 80 mg IN NS 80 MG/250 ML BAG IVPB SCH ×2 (05:40→16:42)
[2018-07-27 05:54] LABS: ABS Basophils 0 10^3/ul (0-0.2); ABS Eosinophils 0 10^3/ul (0-0.6); ABS Lymphocytes 1.1 10^3/ul (1.0-4.8); ABS Monocytes 0.3 10^3/ul (0-0.8); ABS Neutrophils 1.5 10^3/ul (1.5-7.7); ABS Nucleated RBC 0 10^3/ul; Eosinophil % 0 %; Hematocrit 23 % (33-41); Hemoglobin 7.7 g/dL (12.0-16.0); Lymphocyte % 37.2 %; Mean Corpuscular HGB Conc 33 g/dL (31-36); Mean Corpuscular Hemoglobin 28 pg (27-31); Mean Corpuscular Volume 83 fL (80-97); Mean Platelet Volume 6.8 fL (7.4-10.4); Nucleated Red Blood Cells % 0; Platelet Count 243 10^3/uL (150-450); Red Blood Count 2.81 10^6 /uL (3.70-4.87); Red Cell Distribution Width 19 % (10.5-15); White Blood Count 2.9 10^3/uL (3.5-10.8)
[2018-07-27 06:10] LABS: Anion Gap 4 mmol/L (2-11); BUN/Creatinine Ratio 11.1 (8-20); Blood Urea Nitrogen 7 mg/dL (6-24); CO2 Carbon Dioxide 25 mmol/L (22-32); Chloride 108 mmol/L (101-111); EGFR African American 132.5 (>60); EGFR Non-African American 109.5 (>60); Glucose 93 mg/dL (70-100); Potassium 4.1 mmol/L (3.5-5.0); Sodium 137 mmol/L (135-145)
[2018-07-27 06:11] LABS: % Iron Saturation 9 % (15-55); Iron 37 ug/dL (50-212); Total Iron Binding Capacity 393 mcg/dL (250-450); Transferrin 281 mg/dL (203-362)
[2018-07-27 06:32] LABS: Ferritin 6.7 ng/mL (11-307)
[2018-07-27] MEDS ORDERED: NS 0.9% 500 ML* 500 ML IV ONE (07:58)
[2018-07-27] MEDS ORDERED: Iron Sucrose* 200 MG in NS 0.9% 100 ML* 100 ML IVPB ONE (08:50)
--- NOTE | 2018-07-27 09:21 | PN ---
Subjective Date of Service: 07/27/18 Interval History: Patient states pain is worse, now 8/10. No emesis since admission, pt states the ondansetron is helping. No BM or flatus. Family History: Findings - Father [place] age 42, mother breast ca. Social History: Findings - Visiting her grandmother now. Her mother is her SDM. , 2 children in her custody. No alcohol or tobacco use. Past Medical History: Findings - Hx DVT/PE, IVC filter, factor V Leiden, antiphospholipid Ab, Roxana fundopkicatin 2016, appy, jessica, x 2. Objective Active Medications: Albuterol (Ventolin Hfa Inhaler*) 2 puff INH Q4H PRN PRN Reason: SOB/WHEEZING Enoxaparin Sodium (Lovenox(*)) 40 mg SUBCUT Q24H DALILA Last Admin: 07/26/18 22:06 Dose: 40 mg Gabapentin (Neurontin Cap(*)) 900 mg PO BEDTIME DALILA Last Admin: 07/26/18 22:05 Dose: 900 mg Heparin Sodium (Porcine) (Heparin Flush Picc/Ml/Cvc(*)) 0 ml FLUSH 0600,1800 DALILA; Protocol Potassium Chloride/Dextrose (D5w 1/2 Ns Kcl 20 Meq 1000 Ml*) 1,000 mls @ 125 mls/hr IV PER RATE DALILA Last Admin: 07/26/18 22:38 Dose: 125 mls/hr Pantoprazole Sodium (Protonix Iv Bag*) 80 mg in 250 mls @ 25 mls/hr IVPB Q10H DALILA Last Admin: 07/27/18 05:40 Dose: Not Given Iron Sucrose 200 mg/ Sodium (Chloride) 110 mls @ 110 mls/hr IVPB ONCE ONE Stop: 07/27/18 09:49 Lamotrigine (Lamictal Tab(*)) 200 mg PO BEDTIME DALILA Last Admin: 07/26/18 22:04 Dose: 200 mg Morphine Sulfate (Morphine 4 Mg/Ml Vial (1 Ml)) 4 mg IV Q3H PRN PRN Reason: PAIN Last Admin: 07/27/18 05:30 Dose: 4 mg Ondansetron HCl (Zofran Inj*) 4 mg IV Q3H PRN PRN Reason: NAUSEA Last Admin: 07/27/18 05:30 Dose: 4 mg Quetiapine Fumarate (Seroquel Tab*) 600 mg PO BEDTIME DALILA Last Admin: 07/26/18 22:05 Dose: 600 mg Quetiapine Fumarate (Seroquel Tab*) 200 mg PO 2100 [facility] Last Admin: 07/26/18 22:05 Dose: 200 mg Sertraline HCl (Zoloft*) 200 mg PO BEDTIME DALILA Last Admin: 07/26/18 22:04 Dose: 200 mg Trazodone HCl (Desyrel Tab*) 300 mg PO BEDTIME DALILA Last Admin: 07/26/18 22:03 Dose: 300 mg Vital Signs - 8 hr 07/27/18 07/27/18 07/27/18 02:48 05:30 07:25 Temperature 98.4 F 97.6 F Pulse Rate 89 87 Respiratory 24 23 19 Rate Blood Pressure 116/61 83/54 (mmHg) O2 Sat by Pulse 97 Oximetry 07/27/18 07:39 Temperature Pulse Rate Respiratory 18 Rate Blood Pressure (mmHg) O2 Sat by Pulse Oximetry Oxygen Devices in Use Now: None Appearance: Alert, partly up in bed. Somewhat anxious but otherwise looks comfortable. Eyes: No Scleral Icterus Abdominal: No Hepatosplenomegaly, - - Very obese, very soft, mildly to mod tender across abdomen. No BS. Extremities: No Edema, No Clubbing, Cyanosis, - Skin: No Rash or Ulcers, No Nodules or Sclerosis, - Neurological: Alert and Oriented x 3, NL Sensation Result Diagrams: 07/27/18 05:25 07/27/18 05:25 Additional Lab and Data: Lab Results 07/26/18 07/26/18 07/26/18 Range/Units 14:06 14:06 14:06 WBC 4.4 (3.5-10.8) 10^3/uL RBC 3.10 L (3.70-4.87) 10^6 /uL Hgb 8.4 L (12.0-16.0) g/dL Hct 26 L (33-41) % MCV 82 (80-97) fL MCH 27 (27-31) pg MCHC 33 (31-36) g/dL RDW 19 H (10.5-15) % Plt Count 280 (150-450) 10^3/uL MPV 7.1 L (7.4-10.4) fL Neut % (Auto) 68.6 % Lymph % (Auto) 22.5 % [place] % (Auto) 8.2 % Eos % (Auto) 0 % Baso % (Auto) 0.7 % Absolute Neuts (auto) 3.0 (1.5-7.7) 10^3/ul Absolute Lymphs (auto) 1.0 (1.0-4.8) 10^3/ul Absolute Monos (auto) 0.4 (0-0.8) 10^3/ul Absolute Eos (auto) 0 (0-0.6) 10^3/ul Absolute Basos (auto) 0 (0-0.2) 10^3/ul Absolute Nucleated RBC 0 10^3/ul Nucleated RBC % 0 INR (Anticoag Therapy) 0.96 (0.77-1.02) APTT 30.6 (26.0-36.3) seconds Sodium 135 (135-145) mmol/L Potassium 4.1 (3.5-5.0) mmol/L Chloride 106 (101-111) mmol/L Carbon Dioxide 25 (22-32) mmol/L Anion Gap 4 (2-11) mmol/L BUN 10 (6-24) mg/dL Creatinine 0.62 (0.51-0.95) mg/dL Est GFR ( Amer) 135.0 (>60) Est GFR (Non-Af Amer) 111.6 (>60) BUN/Creatinine Ratio 16.1 (8-20) Glucose 96 (70-100) mg/dL Lactic Acid (0.5-2.0) mmol/L Calcium 8.6 (8.6-10.3) mg/dL Magnesium 1.9 (1.9-2.7) mg/dL Total Bilirubin 0.30 (0.2-1.0) mg/dL AST 10 L (13-39) U/L ALT 11 (7-52) U/L Alkaline Phosphatase 56 (34-104) U/L C-Reactive Protein 17.65 H (<8.01) mg/L Total Protein 6.1 L (6.4-8.9) g/dL Albumin 3.8 (3.2-5.2) g/dL Globulin 2.3 (2-4) g/dL Albumin/Globulin Ratio 1.7 (1-3) Amylase 17 L (29-103) U/L Lipase < 10 L (11.0-82.0) U/L Beta HCG, Quant < 0.60 mIU/mL 07/26/18 Range/Units 14:06 WBC (3.5-10.8) 10^3/uL RBC (3.70-4.87) 10^6 /uL Hgb (12.0-16.0) g/dL Hct (33-41) % MCV (80-97) fL MCH (27-31) pg MCHC (31-36) g/dL RDW (10.5-15) % Plt Count (150-450) 10^3/uL MPV (7.4-10.4) fL Neut % (Auto) % Lymph % (Auto) % [place] % (Auto) % Eos % (Auto) % Baso % (Auto) % Absolute Neuts (auto) (1.5-7.7) 10^3/ul Absolute Lymphs (auto) (1.0-4.8) 10^3/ul Absolute Monos (auto) (0-0.8) 10^3/ul Absolute Eos (auto) (0-0.6) 10^3/ul Absolute Basos (auto) (0-0.2) 10^3/ul Absolute Nucleated RBC 10^3/ul Nucleated RBC % INR (Anticoag Therapy) (0.77-1.02) APTT (26.0-36.3) seconds Sodium (135-145) mmol/L Potassium (3.5-5.0) mmol/L Chloride (101-111) mmol/L Carbon Dioxide (22-32) mmol/L Anion Gap (2-11) mmol/L BUN (6-24) mg/dL Creatinine (0.51-0.95) mg/dL Est GFR ( Amer) (>60) Est GFR (Non-Af Amer) (>60) BUN/Creatinine Ratio (8-20) Glucose (70-100) mg/dL Lactic Acid 0.5 (0.5-2.0) mmol/L Calcium (8.6-10.3) mg/dL Magnesium (1.9-2.7) mg/dL Total Bilirubin (0.2-1.0) mg/dL AST (13-39) U/L ALT (7-52) U/L Alkaline Phosphatase (34-104) U/L C-Reactive Protein (<8.01) mg/L Total Protein (6.4-8.9) g/dL Albumin (3.2-5.2) g/dL Globulin (2-4) g/dL Albumin/Globulin Ratio (1-3) Amylase (29-103) U/L Lipase (11.0-82.0) U/L Beta HCG, Quant mIU/mL Microbiology and Other Data: Microbiology 07/26/18 13:09 Stool Occult Blood (JOSEY) - Final Stool Assess/Plan/Problems-Billing Assessment: - Patient Problems (1) Abdominal pain Current Visit: Yes Status: Acute Code(s): R10.9 - UNSPECIFIED ABDOMINAL PAIN SNOMED Code(s): 02474104 Comment: Continue PPI drip, MS and ondansetron PRN. Message to Dr. Chatman to call me on 07/27. Keep NPO until EGD. KUB 07/27. Repeat CBC 07/28. (2) Coagulopathy Current Visit: Yes Status: Acute Comment: Both factor V Leiden and antiphospholipid Ab, note has IVC filter. DVT prophylaxis dose of enoxaparinonly to start as not clear if having GI bleed. Re-start full dose enoxaparin when appropriate or consider DOAC. (3) Morbid obesity Current Visit: Yes Status: Acute Code(s): E66.01 - MORBID (SEVERE) OBESITY DUE TO EXCESS CALORIES SNOMED Code(s): 615684022 Comment: BMI 42.9. (4) Psychiatric diagnosis Current Visit: Yes Status: Acute Code(s): F99 - MENTAL DISORDER, NOT OTHERWISE SPECIFIED SNOMED Code(s): 03373836 Comment: Continue home doses quetiapine, lamotrigine, trazodone, sertralin, all in large doses. (5) Iron deficiency anemia Current Visit: Yes Status: Acute Code(s): D50.9 - IRON DEFICIENCY ANEMIA, UNSPECIFIED SNOMED Code(s): 46007075 Comment: Ferritin 6.7. Iron sucrose 200 mg IV 07/27. ? relative contribution of blood loss via menstruation vs GI source.
[2018-07-27] MEDS ORDERED: NS 0.9% 100 ML* 100 ML ONE (09:24)
[2018-07-27] MEDS: diPHENhydraMINE IV* 50 MG/ML 1 ml VIAL (BENADRYL) IV PRN (11:55)
[2018-07-27] MEDS ORDERED: Midazolam* 1 MG/ML 10 ML VIAL (10 MG) ONE (14:49)
[2018-07-27] MEDS ORDERED: fentaNYL* 50 MCG/ML 2 ML VIAL (100 MCG VIAL) ONE (14:49)
--- NOTE | 2018-07-27 16:23 | PRO ---
DATE OF PROCEDURE: 07/27/18 - ROOM #411 PROCEDURE: EGD. INDICATION: Generalized abdominal pain, anemia. REFERRING PHYSICIAN: No one. MEDICATIONS GIVEN: 25 mcg IV fentanyl, 7 mg IV Versed. DESCRIPTION OF PROCEDURE: After the EGD procedure, including risks, benefits, and alternatives, not limited to perforation, surgery, and/or were explained to the patient, written consent was than obtained, IV medication was given, and a bite- block was placed between the teeth. An Olympus gastroscope was then inserted into the patient's mouth, advanced down the esophagus, into the stomach, into the distal duodenum. In the esophagus, at the GE junction, the Z-line was intact. She does have a small hiatal hernia. No masses or ulcers were seen. Scope was then advanced through the GE junction through a Roxana fundoplication into the body of the stomach. Retroflex view was unremarkable. Forward view did reveal a few small ulcers. They did have stigmata of recent hemorrhage. They are small and I do wonder if they are contributing to her symptoms or not. A biopsy was obtained for H. pylori. The scope was advanced through widely patent pylorus, into the duodenal bulb, into the distal duodenum, both of which were unremarkable. Biopsies were obtained for celiac disease. The scope was then withdrawn from the patient. She tolerated the procedure well, was returned to the recovery room in stable condition. IMPRESSION: 1. Complete upper endoscopy into the distal duodenum with biopsies. 2. Gastric erosions/ulcers, status post biopsy for Helicobacter pylori. The patient denies NSAIDs. They are small. I do wonder if these are contributing to her symptoms or not ? 3. Biopsies for Helicobacter pylori and celiac. 4. I will follow up on the biopsies. She should continue with her PPI. We will continue to follow along. [id number]/[facility] #: [id number] EVELIA
--- NOTE | 2018-07-27 16:32 | CONS ---
CONSULTATION REPORT: DATE OF CONSULT: 07/27/18 INDICATION: Abdominal pain. REFERRING PHYSICIAN: Dr. Sam. NARRATIVE: Mrs. Penn is a pleasant 32-year-old female who has been having abdominal pain for about 1 to 2 weeks. She states in the past few days, she has developed worsening nausea and vomiting. She did have a CT on 07/13/18, which did not reveal any significant GI pathology. 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 She states that she has developed loose stools now, but normally she will have a bowel movement every 10 days. She states that the stools are dark, almost black like. She also has been having vomiting. She states that every now and then there will be blood in it. She can now taste metallic taste in her mouth. She denies any nonsteroidals. She does take Tylenol. She also tells me that she had a GI bleed in the past in [place] in 2007, but does not remember any other significant factors about it. PAST MEDICAL HISTORY: Significant for factor V Leiden deficiency, anemia, history of PE. PAST SURGICAL HISTORY: Include appendectomy, cholecystectomy, , Roxana fundoplication, IVC filter. MEDICATIONS: Upon admission include: 1. Omeprazole. 2. Lamictal. 3. Coumadin. 4. Zoloft. 5. Seroquel. 6. Lovenox. 7. Tylenol. ALLERGIES: CEPHALOSPORINS, IBUPROFEN, IODINE, KETOROLAC, MOXIFLOXACIN, PENICILLIN, TRAMADOL. FAMILY HISTORY: Breast cancer. REVIEW OF SYSTEMS: Twelve-systems were reviewed, other than that mentioned in the HPI were unremarkable. PHYSICAL EXAM: Temperature is 97.8, blood pressure is 103/57, pulse is 88, O2 sat of 96%. General: A well-appearing female, no apparent distress, alert, oriented, pleasant, fluent. HEENT: Mucous membranes are moist without lesions , ulcers, or exudate. Neck is supple. Trachea is midline. Head is normocephalic, atraumatic. Heart: Regular rate and rhythm. No murmurs, rubs, or gallops. Lungs: Clear to auscultation bilaterally. No wheezes, rales, or rhonchi. Abdomen: Positive bowel sounds. Obese, soft. Diffusely tender throughout. No rebound, no guarding. Skin is warm and dry. DIAGNOSTIC STUDIES/LAB DATA: Labs of note, white count is 2.9, hemoglobin is 7.7, platelets of 243. INR is 0.96. BUN and creatinine are normal. She did have a CT abdomen and pelvis from 07/13/18 that revealed pulmonary infiltrate, small hiatal hernia, otherwise normal. ASSESSMENT AND PLAN: This is a pleasant 32-year-old female with generalized abdominal pain. CT from 2 weeks ago was unremarkable. Recent EGD today showed small ulcer/erosions with the possible causative factor; however, I am somewhat skeptical about how much they are contributing to her pain. She does not have a gallbladder. She does not have an appendix. Other possible etiologies would include a gastroenteritis, irritable bowel syndrome, gastroparesis, retained common bile duct stone. I would like to continue on her PPI to see how she does over the next day or 2. We will follow up on the biopsies and GI services will continue to follow along. [id number]/[facility] [place] #: [id number] EVELIA
[2018-07-27] MEDS: Enoxaparin(*) 40 MG/0.4 ML SYR SUBCUT SCH (18:40)
[2018-07-27] MEDS: QUEtiapine TAB* 300 MG PO SCH (20:31)
[2018-07-27] MEDS: Gabapentin CAP(*) 300 MG PO SCH (20:32)
[2018-07-27] MEDS: Sertraline* 100 MG TAB PO SCH (20:32)
[2018-07-27] MEDS: QUEtiapine TAB* 100 MG PO SCH (20:32)
[2018-07-27] MEDS: traZODone TAB* 100 MG PO SCH (20:33)
[2018-07-27] MEDS: lamoTRIgine TAB(*) 100 MG PO SCH (20:33)
[2018-07-27] MEDS: D5W 1/2 NS KCl 20 Meq 1000 ML* 1,000 ML IV SCH (20:34)
[2018-07-27] MEDS: Pantoprazole IV* 40 MG IV SCH (21:37)
[2018-07-28] MEDS: D5W 1/2 NS KCl 20 Meq 1000 ML* 1,000 ML IV SCH ×3 (03:04→21:57)
[2018-07-28] MEDS: Ondansetron INJ* 2 MG/ML VIAL IV PRN ×6 (06:17→23:28)
[2018-07-28] MEDS: Morphine 4 MG/ML VIAL (1 ml) 4 MG/ML VIAL IV PRN ×6 (06:17→23:29)
[2018-07-28] MEDS: Pantoprazole IV* 40 MG IV SCH ×2 (08:06→21:55)
[2018-07-28] MEDS ORDERED: Lorazepam PYXIS KEY PRN (10:24)
[2018-07-28] MEDS ORDERED: LORazepam INJ* 2 MG/ML 1 ML VIAL IV PUSH ONE (10:24)
[2018-07-28] MEDS ORDERED: PROCHLORPERAZINE INJ 5 MG/ML 2 ML VIAL IV ONE (11:29)
[2018-07-28] MEDS: Polyethylene Glycol 3350* 17 GM PACKET PO PRN (14:37)
[2018-07-28] MEDS: Senna TAB PO PRN (14:37)
[2018-07-28] MEDS: Enoxaparin(*) 40 MG/0.4 ML SYR SUBCUT SCH (17:14)
[2018-07-28] MEDS: Gabapentin CAP(*) 300 MG PO SCH (21:56)
[2018-07-28] MEDS: traZODone TAB* 100 MG PO SCH (21:56)
[2018-07-28] MEDS: lamoTRIgine TAB(*) 100 MG PO SCH (21:56)
[2018-07-28] MEDS: Sertraline* 100 MG TAB PO SCH (21:56)
[2018-07-28] MEDS: QUEtiapine TAB* 300 MG PO SCH (21:56)
[2018-07-28] MEDS: QUEtiapine TAB* 100 MG PO SCH (21:57)
[2018-07-28] MEDS: diPHENhydraMINE IV* 50 MG/ML 1 ml VIAL (BENADRYL) IV PRN (22:17)
--- NOTE | 2018-07-28 23:06 | PN ---
Subjective Interval History: Pt with few episodes of emesis - largely dry or very small amount of thick liquid - sputum? Pt reports nausea and pain, although does appear comfortable. Has been asking for pain medication even without symptoms, stating that she "anticipates" pain. Hasn't had a BM in a couple days, and noted to have stool in enema, but without output from enema. Family History: Findings - Father [place] age 42, mother breast ca. Social History: Findings - Visiting her grandmother now. Her mother is her SDM. , 2 children in her custody. No alcohol or tobacco use. Past Medical History: Findings - Hx DVT/PE, IVC filter, factor V Leiden, antiphospholipid Ab, Roxana fundopkicatin 2016, appy, jessica, x 2. Objective Active Medications: Albuterol (Ventolin Hfa Inhaler*) 2 puff INH Q4H PRN PRN Reason: SOB/WHEEZING Diphenhydramine HCl (Benadryl Iv*) 25 mg IV Q6H PRN PRN Reason: PRURITIS Last Admin: 07/28/18 22:17 Dose: 25 mg Enoxaparin Sodium (Lovenox(*)) 40 mg SUBCUT Q24H [facility] Last Admin: 07/28/18 17:14 Dose: 40 mg Gabapentin (Neurontin Cap(*)) 900 mg PO BEDTIME [facility] Last Admin: 07/28/18 21:56 Dose: 900 mg Heparin Sodium (Porcine) (Heparin Flush Picc/Ml/Cvc(*)) 0 ml FLUSH 0600,1800 [facility]; Protocol Last Admin: 07/28/18 16:23 Dose: Not Given Potassium Chloride/Dextrose (D5w 1/2 Ns Kcl 20 Meq 1000 Ml*) 1,000 mls @ 125 mls/hr IV PER RATE [facility] Last Admin: 07/28/18 21:57 Dose: 125 mls/hr Lamotrigine (Lamictal Tab(*)) 200 mg PO BEDTIME [facility] Last Admin: 07/28/18 21:56 Dose: 200 mg Miscellaneous (Ativan Pyxis Martin) 1 ea N/A .ATIVAN IV MARTIN PRN PRN Reason: PYXIS MARTIN Morphine Sulfate (Morphine 4 Mg/Ml Vial (1 Ml)) 2 mg IV Q3H PRN PRN Reason: PAIN Last Admin: 07/28/18 20:15 Dose: 2 mg Ondansetron HCl (Zofran Inj*) 4 mg IV Q3H PRN PRN Reason: NAUSEA Last Admin: 07/28/18 20:16 Dose: 4 mg Pantoprazole Sodium (Protonix Iv*) 40 mg IV Q12H [facility] Last Admin: 07/28/18 21:55 Dose: 40 mg Polyethylene Glycol/Electrolytes (Miralax*) 17 gm PO DAILY PRN PRN Reason: CONSTIPATION Last Admin: 07/28/18 14:37 Dose: 17 gm Quetiapine Fumarate (Seroquel Tab*) 600 mg PO BEDTIME [facility] Last Admin: 07/28/18 21:56 Dose: 600 mg Quetiapine Fumarate (Seroquel Tab*) 200 mg PO 2100 [facility] Last Admin: 07/28/18 21:57 Dose: 200 mg Senna (Senokot Tab*) 1 tab PO DAILY PRN PRN Reason: CONSTIPATION Last Admin: 07/28/18 14:37 Dose: 1 tab Sertraline HCl (Zoloft*) 200 mg PO BEDTIME [facility] Last Admin: 07/28/18 21:56 Dose: 200 mg Trazodone HCl (Desyrel Tab*) 300 mg PO BEDTIME [facility] Last Admin: 07/28/18 21:56 Dose: 300 mg Vital Signs - 8 hr 07/28/18 07/28/18 07/28/18 15:13 15:17 17:13 Temperature 98.9 F 97.0 F Pulse Rate 107 Respiratory 22 17 Rate Blood Pressure 110/57 (mmHg) O2 Sat by Pulse 96 Oximetry 07/28/18 07/28/18 07/28/18 18:28 19:18 20:15 Temperature 97.0 F Pulse Rate 91 Respiratory 16 20 16 Rate Blood Pressure 116/58 (mmHg) O2 Sat by Pulse 97 Oximetry 07/28/18 07/28/18 21:56 22:17 Temperature Pulse Rate Respiratory 16 16 Rate Blood Pressure (mmHg) O2 Sat by Pulse Oximetry Oxygen Devices in Use Now: None Respiratory: Clear to Palpation Cardiovascular: RRR Abdominal: - - mild ttp over epigastrum, no guarding/rebound Extremities: No Edema Result Diagrams: 07/27/18 05:25 07/27/18 05:25 Additional Lab and Data: Lab Results 0407/26/18 07/26/18 Range/Units 14:06 14:06 14:06 WBC 4.4 (3.5-10.8) 10^3/uL RBC 3.10 L (3.70-4.87) 10^6 /uL Hgb 8.4 L (12.0-16.0) g/dL Hct 26 L (33-41) % MCV 82 (80-97) fL MCH 27 (27-31) pg MCHC 33 (31-36) g/dL RDW 19 H (10.5-15) % Plt Count 280 (150-450) 10^3/uL MPV 7.1 L (7.4-10.4) fL Neut % (Auto) 68.6 % Lymph % (Auto) 22.5 % [place] % (Auto) 8.2 % Eos % (Auto) 0 % Baso % (Auto) 0.7 % Absolute Neuts (auto) 3.0 (1.5-7.7) 10^3/ul Absolute Lymphs (auto) 1.0 (1.0-4.8) 10^3/ul Absolute Monos (auto) 0.4 (0-0.8) 10^3/ul Absolute Eos (auto) 0 (0-0.6) 10^3/ul Absolute Basos (auto) 0 (0-0.2) 10^3/ul Absolute Nucleated RBC 0 10^3/ul Nucleated RBC % 0 INR (Anticoag Therapy) 0.96 (0.77-1.02) APTT 30.6 (26.0-36.3) seconds Sodium 135 (135-145) mmol/L Potassium 4.1 (3.5-5.0) mmol/L Chloride 106 (101-111) mmol/L Carbon Dioxide 25 (22-32) mmol/L Anion Gap 4 (2-11) mmol/L BUN 10 (6-24) mg/dL Creatinine 0.62 (0.51-0.95) mg/dL Est GFR ( Amer) 135.0 (>60) Est GFR (Non-Af Amer) 111.6 (>60) BUN/Creatinine Ratio 16.1 (8-20) Glucose 96 (70-100) mg/dL Lactic Acid (0.5-2.0) mmol/L Calcium 8.6 (8.6-10.3) mg/dL Magnesium 1.9 (1.9-2.7) mg/dL Total Bilirubin 0.30 (0.2-1.0) mg/dL AST 10 L (13-39) U/L ALT 11 (7-52) U/L Alkaline Phosphatase 56 (34-104) U/L C-Reactive Protein 17.65 H (<8.01) mg/L Total Protein 6.1 L (6.4-8.9) g/dL Albumin 3.8 (3.2-5.2) g/dL Globulin 2.3 (2-4) g/dL Albumin/Globulin Ratio 1.7 (1-3) Amylase 17 L (29-103) U/L Lipase < 10 L (11.0-82.0) U/L Beta HCG, Quant < 0.60 mIU/mL 07/26/18 Range/Units 14:06 WBC (3.5-10.8) 10^3/uL RBC (3.70-4.87) 10^6 /uL Hgb (12.0-16.0) g/dL Hct (33-41) % MCV (80-97) fL MCH (27-31) pg MCHC (31-36) g/dL RDW (10.5-15) % Plt Count (150-450) 10^3/uL MPV (7.4-10.4) fL Neut % (Auto) % Lymph % (Auto) % [place] % (Auto) % Eos % (Auto) % Baso % (Auto) % Absolute Neuts (auto) (1.5-7.7) 10^3/ul Absolute Lymphs (auto) (1.0-4.8) 10^3/ul Absolute Monos (auto) (0-0.8) 10^3/ul Absolute Eos (auto) (0-0.6) 10^3/ul Absolute Basos (auto) (0-0.2) 10^3/ul Absolute Nucleated RBC 10^3/ul Nucleated RBC % INR (Anticoag Therapy) (0.77-1.02) APTT (26.0-36.3) seconds Sodium (135-145) mmol/L Potassium (3.5-5.0) mmol/L Chloride (101-111) mmol/L Carbon Dioxide (22-32) mmol/L Anion Gap (2-11) mmol/L BUN (6-24) mg/dL Creatinine (0.51-0.95) mg/dL Est GFR ( Amer) (>60) Est GFR (Non-Af Amer) (>60) BUN/Creatinine Ratio (8-20) Glucose (70-100) mg/dL Lactic Acid 0.5 (0.5-2.0) mmol/L Calcium (8.6-10.3) mg/dL Magnesium (1.9-2.7) mg/dL Total Bilirubin (0.2-1.0) mg/dL AST (13-39) U/L ALT (7-52) U/L Alkaline Phosphatase (34-104) U/L C-Reactive Protein (<8.01) mg/L Total Protein (6.4-8.9) g/dL Albumin (3.2-5.2) g/dL Globulin (2-4) g/dL Albumin/Globulin Ratio (1-3) Amylase (29-103) U/L Lipase (11.0-82.0) U/L Beta HCG, Quant mIU/mL Microbiology and Other Data: Microbiology 07/26/18 13:09 Stool Occult Blood (JOSEY) - Final Stool Assess/Plan/Problems-Billing Assessment: 32W with h/o multiple abdominal surgeries, psych disorders NOS, DVT/PE, factor V Leiden, antiphospholipid Ab now s/p IVC filter, presents with abd pain and n/v , found with EGD showing small ulcer/erosions. - Patient Problems (1) Abdominal pain Comment: PPI IV q12h, decrease MS, and cont ondansetron PRN. Intensify bowel regimen. Pending further GI recommendations. (2) Coagulopathy Comment: Both factor V Leiden and antiphospholipid Ab, note has IVC filter. DVT prophylaxis dose of enoxaparinonly to start as not clear if having GI bleed. Re-start full dose enoxaparin when appropriate or consider DOAC. (3) Iron deficiency anemia Comment: Ferritin 6.7. Iron sucrose 200 mg IV 07/27. ? relative contribution of blood loss via menstruation vs GI source. (4) Morbid obesity Comment: BMI 42.9. (5) Psychiatric diagnosis Comment: Continue home doses quetiapine, lamotrigine, trazodone, sertralin, all in large doses.
[2018-07-29] MEDS: Morphine 4 MG/ML VIAL (1 ml) 4 MG/ML VIAL IV PRN (05:37)
[2018-07-29] MEDS: Ondansetron INJ* 2 MG/ML VIAL IV PRN (05:37)
[2018-07-29] MEDS: diPHENhydraMINE IV* 50 MG/ML 1 ml VIAL (BENADRYL) IV PRN ×2 (05:54→14:40)
[2018-07-29] MEDS: D5W 1/2 NS KCl 20 Meq 1000 ML* 1,000 ML IV SCH ×2 (06:26→15:04)
[2018-07-29] MEDS ORDERED: Morphine 4 MG/ML VIAL (1 ml) 4 MG/ML VIAL IV PRN (08:37)
[2018-07-29 08:48] LABS: Hematocrit 23 % (33-41); Hemoglobin 7.7 g/dL (12.0-16.0); Mean Corpuscular HGB Conc 33 g/dL (31-36); Mean Corpuscular Hemoglobin 27 pg (27-31); Mean Corpuscular Volume 83 fL (80-97); Mean Platelet Volume 6.7 fL (7.4-10.4); Platelet Count 247 10^3/uL (150-450); Red Blood Count 2.83 10^6 /uL (3.70-4.87); Red Cell Distribution Width 19 % (10.5-15); White Blood Count 2.7 10^3/uL (3.5-10.8)
[2018-07-29 09:08] LABS: BUN/Creatinine Ratio 4.3 (8-20); Calcium 8.5 mg/dL (8.6-10.3); EGFR African American 117.3 (>60); Magnesium 1.9 mg/dL (1.9-2.7); Potassium 3.9 mmol/L (3.5-5.0)
[2018-07-29] MEDS: Pantoprazole IV* 40 MG IV SCH (10:21)
[2018-07-29] MEDS: Polyethylene Glycol 3350* 17 GM PACKET PO PRN (10:27)
[2018-07-29] MEDS: Senna TAB PO PRN (10:27)
[2018-07-29 15:06] VITALS: BP 110/60
--- NOTE | 2018-07-29 16:09 | DCNOTE ---
Subjective Interval History: Pt noted to ask for morphine overnight and fall asleep quickly, before administration of dose. Then noted to have decrease SaO2 on wakening this morning, with continued nausea. Noted to be very comfortable and somewhat sleepy on interview, but again fixated on getting more morphine. Discussed with patient that side effects of opioids are too significant for her at this time (likely contributing to her impaired respiratory status, gastroparesis, and nausea) and that opioids are not the optimal treatment for her GI pain even without side effects. Still pending final GI recommendations. Had EGD 2 days ago and was recommended to continue on PPI for 1-2 days and would make recommendations after that. GI paged. Family History: Findings - Father [place] age 42, mother breast ca. Social History: Findings - Visiting her grandmother now. Her mother is her SDM. , 2 children in her custody. No alcohol or tobacco use. Past Medical History: Findings - Hx DVT/PE, IVC filter, factor V Leiden, antiphospholipid Ab, Roxana fundopkicatin 2016, appy, jessica, x 2. Objective Active Medications: Albuterol (Ventolin Hfa Inhaler*) 2 puff INH Q4H PRN PRN Reason: SOB/WHEEZING Diphenhydramine HCl (Benadryl Iv*) 25 mg IV Q6H PRN PRN Reason: PRURITIS Last Admin: 07/29/18 14:40 Dose: 25 mg Enoxaparin Sodium (Lovenox(*)) 40 mg SUBCUT Q24H [facility] Last Admin: 07/28/18 17:14 Dose: 40 mg Gabapentin (Neurontin Cap(*)) 900 mg PO BEDTIME [facility] Last Admin: 07/28/18 21:56 Dose: 900 mg Heparin Sodium (Porcine) (Heparin Flush Picc/Ml/Cvc(*)) 0 ml FLUSH 0600,1800 [facility]; Protocol Last Admin: 07/29/18 05:34 Dose: Not Given Potassium Chloride/Dextrose (D5w 1/2 Ns Kcl 20 Meq 1000 Ml*) 1,000 mls @ 125 mls/hr IV PER RATE [facility] Last Admin: 07/29/18 15:04 Dose: 125 mls/hr Lamotrigine (Lamictal Tab(*)) 200 mg PO BEDTIME [facility] Last Admin: 07/28/18 21:56 Dose: 200 mg Miscellaneous (Ativan Pyxis Martin) 1 ea N/A .ATIVAN IV MARTIN PRN PRN Reason: PYXIS MARTIN Morphine Sulfate (Morphine 4 Mg/Ml Vial (1 Ml)) 2 mg IV Q6H PRN PRN Reason: PAIN Last Admin: 07/29/18 12:51 Dose: 2 mg Ondansetron HCl (Zofran Inj*) 4 mg IV Q3H PRN PRN Reason: NAUSEA Last Admin: 07/29/18 05:37 Dose: 4 mg Pantoprazole Sodium (Protonix Iv*) 40 mg IV Q12H [facility] Last Admin: 07/29/18 10:21 Dose: 40 mg Polyethylene Glycol/Electrolytes (Miralax*) 17 gm PO DAILY PRN PRN Reason: CONSTIPATION Last Admin: 07/28/18 14:37 Dose: 17 gm Quetiapine Fumarate (Seroquel Tab*) 600 mg PO BEDTIME [facility] Last Admin: 07/28/18 21:56 Dose: 600 mg Quetiapine Fumarate (Seroquel Tab*) 200 mg PO 2100 [facility] Last Admin: 07/28/18 21:57 Dose: 200 mg Senna (Senokot Tab*) 1 tab PO DAILY PRN PRN Reason: CONSTIPATION Last Admin: 07/29/18 10:27 Dose: 1 tab Sertraline HCl (Zoloft*) 200 mg PO BEDTIME [facility] Last Admin: 07/28/18 21:56 Dose: 200 mg Trazodone HCl (Desyrel Tab*) 300 mg PO BEDTIME [facility] Last Admin: 07/28/18 21:56 Dose: 300 mg Vital Signs - 8 hr 07/29/18 07/29/18 07/29/18 08:12 08:18 11:16 Temperature 98.7 F Pulse Rate 88 81 Respiratory 12 22 Rate Blood Pressure 99/52 (mmHg) O2 Sat by Pulse 100 Oximetry 07/29/18 07/29/18 07/29/18 12:51 14:40 15:05 Temperature 98.4 F Pulse Rate 78 Respiratory 16 14 16 Rate Blood Pressure 110/60 (mmHg) O2 Sat by Pulse 97 Oximetry 07/29/18 15:11 Temperature Pulse Rate Respiratory 14 Rate Blood Pressure (mmHg) O2 Sat by Pulse Oximetry Oxygen Devices in Use Now: Nasal Cannula Appearance: appears comfortable, not in acute distress, somewhat sleepy Ears/Nose/Mouth/Throat: Mucous Membranes Moist Cardiovascular: RRR Abdominal: - - mild ttp over epigastrum, no guarding/rebound, difficult to appreciate organomegaly given habitus Extremities: No Edema Neurological: Alert and Oriented x 3 Result Diagrams: 07/29/18 08:37 07/29/18 08:37 Additional Lab and Data: Lab Results 07/26/18 07/26/18 07/26/18 Range/Units 14:06 14:06 14:06 WBC 4.4 (3.5-10.8) 10^3/uL RBC 3.10 L (3.70-4.87) 10^6 /uL Hgb 8.4 L (12.0-16.0) g/dL Hct 26 L (33-41) % MCV 82 (80-97) fL MCH 27 (27-31) pg MCHC 33 (31-36) g/dL RDW 19 H (10.5-15) % Plt Count 280 (150-450) 10^3/uL MPV 7.1 L (7.4-10.4) fL Neut % (Auto) 68.6 % Lymph % (Auto) 22.5 % [place] % (Auto) 8.2 % Eos % (Auto) 0 % Baso % (Auto) 0.7 % Absolute Neuts (auto) 3.0 (1.5-7.7) 10^3/ul Absolute Lymphs (auto) 1.0 (1.0-4.8) 10^3/ul Absolute Monos (auto) 0.4 (0-0.8) 10^3/ul Absolute Eos (auto) 0 (0-0.6) 10^3/ul Absolute Basos (auto) 0 (0-0.2) 10^3/ul Absolute Nucleated RBC 0 10^3/ul Nucleated RBC % 0 INR (Anticoag Therapy) 0.96 (0.77-1.02) APTT 30.6 (26.0-36.3) seconds Sodium 135 (135-145) mmol/L Potassium 4.1 (3.5-5.0) mmol/L Chloride 106 (101-111) mmol/L Carbon Dioxide 25 (22-32) mmol/L Anion Gap 4 (2-11) mmol/L BUN 10 (6-24) mg/dL Creatinine 0.62 (0.51-0.95) mg/dL Est GFR ( Amer) 135.0 (>60) Est GFR (Non-Af Amer) 111.6 (>60) BUN/Creatinine Ratio 16.1 (8-20) Glucose 96 (70-100) mg/dL Lactic Acid (0.5-2.0) mmol/L Calcium 8.6 (8.6-10.3) mg/dL Magnesium 1.9 (1.9-2.7) mg/dL Total Bilirubin 0.30 (0.2-1.0) mg/dL AST 10 L (13-39) U/L ALT 11 (7-52) U/L Alkaline Phosphatase 56 (34-104) U/L C-Reactive Protein 17.65 H (<8.01) mg/L Total Protein 6.1 L (6.4-8.9) g/dL Albumin 3.8 (3.2-5.2) g/dL Globulin 2.3 (2-4) g/dL Albumin/Globulin Ratio 1.7 (1-3) Amylase 17 L (29-103) U/L Lipase < 10 L (11.0-82.0) U/L Beta HCG, Quant < 0.60 mIU/mL 07/26/18 Range/Units 14:06 WBC (3.5-10.8) 10^3/uL RBC (3.70-4.87) 10^6 /uL Hgb (12.0-16.0) g/dL Hct (33-41) % MCV (80-97) fL MCH (27-31) pg MCHC (31-36) g/dL RDW (10.5-15) % Plt Count (150-450) 10^3/uL MPV (7.4-10.4) fL Neut % (Auto) % Lymph % (Auto) % [place] % (Auto) % Eos % (Auto) % Baso % (Auto) % Absolute Neuts (auto) (1.5-7.7) 10^3/ul Absolute Lymphs (auto) (1.0-4.8) 10^3/ul Absolute Monos (auto) (0-0.8) 10^3/ul Absolute Eos (auto) (0-0.6) 10^3/ul Absolute Basos (auto) (0-0.2) 10^3/ul Absolute Nucleated RBC 10^3/ul Nucleated RBC % INR (Anticoag Therapy) (0.77-1.02) APTT (26.0-36.3) seconds Sodium (135-145) mmol/L Potassium (3.5-5.0) mmol/L Chloride (101-111) mmol/L Carbon Dioxide (22-32) mmol/L Anion Gap (2-11) mmol/L BUN (6-24) mg/dL Creatinine (0.51-0.95) mg/dL Est GFR ( Amer) (>60) Est GFR (Non-Af Amer) (>60) BUN/Creatinine Ratio (8-20) Glucose (70-100) mg/dL Lactic Acid 0.5 (0.5-2.0) mmol/L Calcium (8.6-10.3) mg/dL Magnesium (1.9-2.7) mg/dL Total Bilirubin (0.2-1.0) mg/dL AST (13-39) U/L ALT (7-52) U/L Alkaline Phosphatase (34-104) U/L C-Reactive Protein (<8.01) mg/L Total Protein (6.4-8.9) g/dL Albumin (3.2-5.2) g/dL Globulin (2-4) g/dL Albumin/Globulin Ratio (1-3) Amylase (29-103) U/L Lipase (11.0-82.0) U/L Beta HCG, Quant mIU/mL Microbiology and Other Data: Microbiology 07/26/18 13:09 Stool Occult Blood (JOSEY) - Final Stool Assess/Plan/Problems-Billing Assessment: 32W with h/o multiple abdominal surgeries, psych disorders NOS, DVT/PE, factor V Leiden, antiphospholipid Ab now s/p IVC filter, presents with abd pain and n/v , found with EGD showing small ulcer/erosions. - Patient Problems (1) Abdominal pain Comment: PPI IV q12h, decrease MS, and cont ondansetron PRN. Intensify bowel regimen. Pending further GI recommendations. (2) Coagulopathy Comment: Both factor V Leiden and antiphospholipid Ab, note has IVC filter. DVT prophylaxis dose of enoxaparinonly to start as not clear if having GI bleed. Re-start full dose enoxaparin when appropriate or consider DOAC. (3) Iron deficiency anemia Comment: Ferritin 6.7. Iron sucrose 200 mg IV 07/27. ? relative contribution of blood loss via menstruation vs GI source. (4) Morbid obesity Comment: BMI 42.9. (5) Psychiatric diagnosis Comment: Continue home doses quetiapine, lamotrigine, trazodone, sertralin, all in large doses.
--- NOTE | 2018-07-29 17:10 | PN ---
Subjective Date of Service: 07/29/18 Interval History: Pt noted to ask for morphine overnight and fall asleep quickly, before administration of dose. Then noted to have decrease SaO2 on wakening this morning, with continued nausea. Noted to be very comfortable and somewhat sleepy on interview, but again fixated on getting more morphine. Discussed with patient that side effects of opioids are too significant for her at this time (likely contributing to her impaired respiratory status, gastroparesis, and nausea) and that opioids are not the optimal treatment for her GI pain even without side effects. Still pending final GI recommendations. Had EGD 2 days ago and was recommended to continue on PPI for 1-2 days and would make recommendations after that. GI paged. Objective Active Medications: Albuterol (Ventolin Hfa Inhaler*) 2 puff INH Q4H PRN PRN Reason: SOB/WHEEZING Diphenhydramine HCl (Benadryl Iv*) 25 mg IV Q6H PRN PRN Reason: PRURITIS Last Admin: 07/29/18 14:40 Dose: 25 mg Enoxaparin Sodium (Lovenox(*)) 40 mg SUBCUT Q24H [facility] Last Admin: 07/28/18 17:14 Dose: 40 mg Gabapentin (Neurontin Cap(*)) 900 mg PO BEDTIME [facility] Last Admin: 07/28/18 21:56 Dose: 900 mg Heparin Sodium (Porcine) (Heparin Flush Picc/Ml/Cvc(*)) 0 ml FLUSH 0600,1800 [facility]; Protocol Last Admin: 07/29/18 16:19 Dose: Not Given Potassium Chloride/Dextrose (D5w 1/2 Ns Kcl 20 Meq 1000 Ml*) 1,000 mls @ 125 mls/hr IV PER RATE [facility] Last Admin: 07/29/18 15:04 Dose: 125 mls/hr Lamotrigine (Lamictal Tab(*)) 200 mg PO BEDTIME [facility] Last Admin: 07/28/18 21:56 Dose: 200 mg Miscellaneous (Ativan Pyxis Martin) 1 ea N/A .ATIVAN IV MARTIN PRN PRN Reason: PYXIS MARTIN Morphine Sulfate (Morphine 4 Mg/Ml Vial (1 Ml)) 2 mg IV Q6H PRN PRN Reason: PAIN Last Admin: 07/29/18 12:51 Dose: 2 mg Ondansetron HCl (Zofran Inj*) 4 mg IV Q3H PRN PRN Reason: NAUSEA Last Admin: 07/29/18 05:37 Dose: 4 mg Pantoprazole Sodium (Protonix Iv*) 40 mg IV Q12H [facility] Last Admin: 07/29/18 10:21 Dose: 40 mg Polyethylene Glycol/Electrolytes (Miralax*) 17 gm PO DAILY PRN PRN Reason: CONSTIPATION Last Admin: 07/28/18 14:37 Dose: 17 gm Quetiapine Fumarate (Seroquel Tab*) 600 mg PO BEDTIME [facility] Last Admin: 07/28/18 21:56 Dose: 600 mg Quetiapine Fumarate (Seroquel Tab*) 200 mg PO 2100 [facility] Last Admin: 07/28/18 21:57 Dose: 200 mg Senna (Senokot Tab*) 1 tab PO DAILY PRN PRN Reason: CONSTIPATION Last Admin: 07/29/18 10:27 Dose: 1 tab Sertraline HCl (Zoloft*) 200 mg PO BEDTIME [facility] Last Admin: 07/28/18 21:56 Dose: 200 mg Trazodone HCl (Desyrel Tab*) 300 mg PO BEDTIME [facility] Last Admin: 07/28/18 21:56 Dose: 300 mg Vital Signs - 8 hr 07/29/18 07/29/18 07/29/18 11:16 12:51 14:40 Temperature 98.7 F Pulse Rate 81 Respiratory 22 16 14 Rate Blood Pressure 99/52 (mmHg) O2 Sat by Pulse 100 Oximetry 07/29/18 07/29/18 07/29/18 15:05 15:11 16:18 Temperature 98.4 F Pulse Rate 78 Respiratory 16 14 14 Rate Blood Pressure 110/60 (mmHg) O2 Sat by Pulse 97 Oximetry Oxygen Devices in Use Now: Nasal Cannula Appearance: comfortable appearing, somewhat sleepy Ears/Nose/Mouth/Throat: Mucous Membranes Moist Respiratory: Clear to Auscultation Cardiovascular: RRR Abdominal: - - mild epigastric tenderness to palpation, no guarding/rebound, unable to appreciate organomegaly due to habitus Neurological: Alert and Oriented x 3 Result Diagrams: 07/29/18 08:37 07/29/18 08:37 Additional Lab and Data: Lab Results 07/26/18 07/26/18 07/26/18 Range/Units 14:06 14:06 14:06 WBC 4.4 (3.5-10.8) 10^3/uL RBC 3.10 L (3.70-4.87) 10^6 /uL Hgb 8.4 L (12.0-16.0) g/dL Hct 26 L (33-41) % MCV 82 (80-97) fL MCH 27 (27-31) pg MCHC 33 (31-36) g/dL RDW 19 H (10.5-15) % Plt Count 280 (150-450) 10^3/uL MPV 7.1 L (7.4-10.4) fL Neut % (Auto) 68.6 % Lymph % (Auto) 22.5 % [place] % (Auto) 8.2 % Eos % (Auto) 0 % Baso % (Auto) 0.7 % Absolute Neuts (auto) 3.0 (1.5-7.7) 10^3/ul Absolute Lymphs (auto) 1.0 (1.0-4.8) 10^3/ul Absolute Monos (auto) 0.4 (0-0.8) 10^3/ul Absolute Eos (auto) 0 (0-0.6) 10^3/ul Absolute Basos (auto) 0 (0-0.2) 10^3/ul Absolute Nucleated RBC 0 10^3/ul Nucleated RBC % 0 INR (Anticoag Therapy) 0.96 (0.77-1.02) APTT 30.6 (26.0-36.3) seconds Sodium 135 (135-145) mmol/L Potassium 4.1 (3.5-5.0) mmol/L Chloride 106 (101-111) mmol/L Carbon Dioxide 25 (22-32) mmol/L Anion Gap 4 (2-11) mmol/L BUN 10 (6-24) mg/dL Creatinine 0.62 (0.51-0.95) mg/dL Est GFR ( Amer) 135.0 (>60) Est GFR (Non-Af Amer) 111.6 (>60) BUN/Creatinine Ratio 16.1 (8-20) Glucose 96 (70-100) mg/dL Lactic Acid (0.5-2.0) mmol/L Calcium 8.6 (8.6-10.3) mg/dL Magnesium 1.9 (1.9-2.7) mg/dL Total Bilirubin 0.30 (0.2-1.0) mg/dL AST 10 L (13-39) U/L ALT 11 (7-52) U/L Alkaline Phosphatase 56 (34-104) U/L C-Reactive Protein 17.65 H (<8.01) mg/L Total Protein 6.1 L (6.4-8.9) g/dL Albumin 3.8 (3.2-5.2) g/dL Globulin 2.3 (2-4) g/dL Albumin/Globulin Ratio 1.7 (1-3) Amylase 17 L (29-103) U/L Lipase < 10 L (11.0-82.0) U/L Beta HCG, Quant < 0.60 mIU/mL 07/26/18 Range/Units 14:06 WBC (3.5-10.8) 10^3/uL RBC (3.70-4.87) 10^6 /uL Hgb (12.0-16.0) g/dL Hct (33-41) % MCV (80-97) fL MCH (27-31) pg MCHC (31-36) g/dL RDW (10.5-15) % Plt Count (150-450) 10^3/uL MPV (7.4-10.4) fL Neut % (Auto) % Lymph % (Auto) % [place] % (Auto) % Eos % (Auto) % Baso % (Auto) % Absolute Neuts (auto) (1.5-7.7) 10^3/ul Absolute Lymphs (auto) (1.0-4.8) 10^3/ul Absolute Monos (auto) (0-0.8) 10^3/ul Absolute Eos (auto) (0-0.6) 10^3/ul Absolute Basos (auto) (0-0.2) 10^3/ul Absolute Nucleated RBC 10^3/ul Nucleated RBC % INR (Anticoag Therapy) (0.77-1.02) APTT (26.0-36.3) seconds Sodium (135-145) mmol/L Potassium (3.5-5.0) mmol/L Chloride (101-111) mmol/L Carbon Dioxide (22-32) mmol/L Anion Gap (2-11) mmol/L BUN (6-24) mg/dL Creatinine (0.51-0.95) mg/dL Est GFR ( Amer) (>60) Est GFR (Non-Af Amer) (>60) BUN/Creatinine Ratio (8-20) Glucose (70-100) mg/dL Lactic Acid 0.5 (0.5-2.0) mmol/L Calcium (8.6-10.3) mg/dL Magnesium (1.9-2.7) mg/dL Total Bilirubin (0.2-1.0) mg/dL AST (13-39) U/L ALT (7-52) U/L Alkaline Phosphatase (34-104) U/L C-Reactive Protein (<8.01) mg/L Total Protein (6.4-8.9) g/dL Albumin (3.2-5.2) g/dL Globulin (2-4) g/dL Albumin/Globulin Ratio (1-3) Amylase (29-103) U/L Lipase (11.0-82.0) U/L Beta HCG, Quant mIU/mL Microbiology and Other Data: Microbiology 07/26/18 13:09 Stool Occult Blood (JOSEY) - Final Stool Assess/Plan/Problems-Billing Assessment: 32W with h/o multiple abdominal surgeries, psych disorders - PTSH?, DVT/PE, factor V Leiden, antiphospholipid Ab now s/p IVC filter and on warfarin, presents with abd pain and n/v, found with EGD showing small ulcer/erosions. - Patient Problems (1) Abdominal pain Comment: will switch PPI to PO decrease MS, and cont ondansetron PRN. Intensify bowel regimen. Pending further GI recommendations. (2) Coagulopathy Comment: Both factor V Leiden and antiphospholipid Ab, note has IVC filter. - pt reports being on warfarin at home - will order now that GI bleed ruled out (3) Iron deficiency anemia Comment: Ferritin 6.7. Iron sucrose 200 mg IV 07/27. ? relative contribution of blood loss via menstruation vs GI source. (4) Morbid obesity Comment: BMI 42.9. (5) Psychiatric diagnosis Comment: Continue home doses quetiapine, lamotrigine, trazodone, sertralin, all in large doses.
[2018-07-29] MEDS ORDERED: Warfarin TAB(*) 7.5 MG PO ONE (17:30)
[2018-07-29] MEDS ORDERED: Magnesium Hydroxide LIQ* 30 ML UDC PO PRN (17:42)
[2018-07-29] MEDS ORDERED: TETRACYCLINE 250 MG PO SCH (18:00)
[2018-07-29] MEDS ORDERED: BISMUTH SUBSALICYLATE 524 MG/30 ML PO SCH (18:00)
--- NOTE | 2018-07-29 18:34 | PN ---
Progress Note - Progress Note Date of Service: 07/29/18 Note: Brief GI Follow-up Note Reviewed chart and spoke with Dr Griggs ([facility] Mirlande test positive from Friday's EGD c/w H pylori. Patient continues to report abdominal pain. Enema yesterday without stool output. Patient states that she wants to leave the hospital today. Understands needs for constipation and H pylori treatment as these two conditions can cause abdominal pain. # H pylori treatment in setting of penicillin/cephalosporin allergy: - Omeprazole 20 mg twice daily - Bismuth sub-salicylate 300 or 524 mg QID - Tetracycline 500 mg QID - Metronidazole 500 mg TID * Recommend 14 day course of regimen with continued PPI until seen in clinic. Will need GI follow-up and test to confirm eradication * # Constipation: Large amount of stool on abdominal x-ray several days ago. - Recommend Magnesium citrate bottle x 1 - Start Miralax twice daily until having regular softer stools Follow-up in GI clinic.
[2018-07-29] MEDS ORDERED: Bismuth Subsalicylate* 524 MG/30 ML BTL PO SCH (20:00)
[2018-07-29] MEDS ORDERED: metroNIDAZOLE TAB* 250 MG PO SCH (21:00)
[2018-07-29] MEDS ORDERED: Pantoprazole TAB * 40 MG TAB PO SCH (21:00)
[2018-07-29] MEDS ORDERED: Polyethylene Glycol 3350* 17 GM PACKET PO SCH (21:00)
--- NOTE | 2018-07-30 01:33 | DS ---
CC: Bo Alexis MD; Hermilo Chatman; Dr. Villalobos* DISCHARGE SUMMARY: DATE OF ADMISSION: 07/26/18 DATE OF DISCHARGE: 07/29/18 PRIMARY CARE PHYSICIAN: Bo Alexis M.D. DISPOSITION: Home. CONDITION: Good. PRIMARY DIAGNOSES: 1. Helicobacter pylori. 2. Gastroparesis, likely medication side effect. SECONDARY DIAGNOSES: 1. Morbid obesity. 2. Deep venous thrombosis/pulmonary embolism, factor V Leiden, antiphospholipid syndrome, on warfarin. 3. Status post multiple abdominal surgeries including Roxana fundoplication, 2016; appendectomy; cholecystectomy; C-sections. 4. Posttraumatic stress disorder. CONSULTS: GI, Dr. Hermilo Chatman and Dr. Villalobos. PROCEDURES: EGD on 07/27/18. DISCHARGE MEDICATIONS: 1. Bismuth subsalicylate 524 mg every 6 hours for 2 weeks. 2. Pantoprazole 40 mg twice a day for 2 weeks. 3. Tetracycline 500 mg 4 times daily for 2 weeks. 4. Metronidazole 250 mg 4 times daily for 2 weeks. 5. Milk of magnesia 300 mL every 6 hours as needed for constipation. 6. Polyethylene glycol 17 g p.o. twice a day as needed for constipation. 7. Senna 1 tab daily as needed for constipation. 8. Gabapentin 900 mg at bedtime. 9. Seroquel 800 mg at bedtime. 10. Sertraline 200 mg daily. 11. Trazodone 300 mg at bedtime. 12. Warfarin 7.5 mg daily. 13. Lamotrigine 200 mg daily. HISTORY OF PRESENT ILLNESS: A 32-year-old woman with a history of posttraumatic stress disorder and other psychiatric disorders, morbid obesity, factor V Leiden with history of DVT, PE, on warfarin, who is presenting to the emergency room 4 times this month with multiple complaints. At this time, the patient is stating she has had abdominal pain for 1 to 2 weeks, and in the past few days, this has been associated with worsening nausea and vomiting. About 10 days prior to presentation, she had a CT which did not reveal any significant GI pathology. 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 She states that she usually has a bowel movement every 10 days, but recently had loose stool and that her stools are dark, almost black, and that she has also been having vomiting, and every now and then there is blood in her vomiting. She denies any NSAID use. She only uses Tylenol for her pain control. She reports a history of GI bleed in 2007, but does not remember any other details about it. She was admitted because she was not able to keep down her warfarin pill. HOSPITAL COURSE: The patient was admitted to Medicine and started on PPI drip with morphine for pain control and ondansetron as needed for nausea and vomiting. GI was consulted and planned to see the patient by the next morning, and was advised to have the patient n.p.o. for planned EGD. Throughout admission, the patient was frequently requesting her morphine before it was due even when she was noted to be comfortable and even sleeping. She also reports to staff that she requested just in anticipation that she may have pain and even when she does not have pain. The patient underwent EGD on 07/27/18, which showed gastric erosion/ulcers. These ulcers were noted to be small and not fully able to explain the significant pain that the patient reports she is experiencing. She also had biopsies taken for H. pylori and celiac disease. Two days later, the biopsies resulted positive for Helicobacter pylori. The patient was constipated throughout admission, but was declining a lot of oral laxatives. She did undergo an enema, which revealed largely clear liquids. On day of discharge, it was discussed with the patient that a lot of her current symptoms were possibly from frequent morphine use and her order was decreased throughout her hospitalization. She was experiencing side effects such as nausea and gastroparesis, and was also noted to be hypoxic one morning after waking up and sleepy after multiple requests from morphine overnight. When the patient was notified that she had a bacterial infection in her stomach called Helicobacter pylori, she asked to be discharged from the hospital and stated that she could take treatment for this in an outpatient setting. She was discharged and advised to follow up closely with her primary care physician. PERTINENT STUDIES/LABS: Abdominal x-rays, 07/27/18, nonobstructive bowel gas pattern, large amount of stool throughout the colon. EGD, 07/27/18, with small ulcers and gastric erosions, positive for Helicobacter pylori. Chest x-ray with cardiomegaly and interstitial edema, no changes noted since prior exam 11 days prior. DISCHARGE PLAN: The patient is to follow up with her primary care physician and psychiatrist. She was given prescriptions for bismuth triple therapy given multiple antibiotic drug allergies. These prescriptions were sent to her home pharmacy and confirmed with pharmacist. She was also started on home bowel regimen with MiraLAX, senna, and milk of magnesia. Her primary care physician can follow up treatment response to Helicobacter pylori, which ideally should have a stool antigen checked for clearance 4 weeks after finishing therapy. It was also recommended that her PCP consider an echo given interstitial edema on chest x-ray, although the patient was largely without symptoms and only had oxygen desaturation once that was felt to be due to atelectasis after waking up. Written precautions were discussed with the patient. She is to resume regular diet, low on processed food, as tolerated, and avoid alcohol given metronidazole. She is to resume a normal level of activity. TIME SPENT: Approximately 60 minutes spent on discharge of this patient, more than half of which was spent with care, coordination, or at bedside for interview and exam. [id number]/CPS #: [id number] EVELIA
== END 2018-07-29 19:00 | disposition home or self-care (01) ==
LOC: ED 12:01 → INTOOBSV 18:12 → MED 18:12
PROVIDERS: ADMIT Internal Medicine; ATTEND Internal Medicine
DX: B96.81 Helicobacter pylori [H. pylori] as the cause of diseases classified elsewhere (principal); K31.84 Gastroparesis; E66.01 Morbid (severe) obesity due to excess calories; Z86.718 Personal history of other venous thrombosis and embolism; Z79.01 Long term (current) use of anticoagulants; D68.61 Antiphospholipid syndrome; F43.10 Post-traumatic stress disorder, unspecified; Z90.89 Acquired absence of other organs; R11.2 Nausea with vomiting, unspecified; R10.9 Unspecified abdominal pain; F99 Mental disorder, not otherwise specified; Z86.711 Personal history of pulmonary embolism; K21.9 Gastro-esophageal reflux disease without esophagitis; Z87.442 Personal history of urinary calculi; Z68.41 Body mass index [BMI] 40.0-44.9, adult; D50.9 Iron deficiency anemia, unspecified
CPT/HCPCS: 36415; 71046; 74018; 80048; 80053; 81003; 81015; 82150; 82272; 82728; 83540; 83550; 83605; 83690; 83735; 84702; 85025; 85027; 85610; 85730; 86140; 87077; 87086; 88305; 93005; 96361; 96372; 96374; 96375; 96376; 99156; 99284; 99285; A9270-GY; G0378; J0780; J1200; J1650; J1756; J2060; J2250; J2270; J2405; J3010

== ENCOUNTER → 2018-08-04 15:45 | Emergency (ER) | payer OTHER ==
[~2018-08-04 15:45] MED LIST: Morphine 10 MG/ML VIAL (1 ml) IV ONE; NS 0.9% 1000 ML** 1,000 ML IV ONE; Ondansetron INJ* 2 MG/ML VIAL IV ONE
[2018-08-04 17:25] LABS: Urine Appearance Cloudy; Urine Bacteria 1+ (Absent); Urine Bilirubin Negative (Negative); Urine Blood Negative (Negative); Urine Color Yellow; Urine Glucose Negative (Negative); Urine Ketones Negative (Negative); Urine Nitrite Negative (Negative); Urine Protein Negative (Negative); Urine Red Blood Cell 1+(3-5/hpf) (Absent); Urine Specific Gravity 1.016 (1.010-1.030); Urine Squamous Epithelial Cell Present (Absent); Urine Urobilinogen Negative (Negative); Urine White Blood Cell 2+(11-20/hpf) (Absent)
--- NOTE | 2018-08-04 18:35 | ED ---
GI/ HPI - HPI Summary HPI Summary: This patient is a 32 year old F presenting to ED with a chief complaints of worsening epigastric abdominal pain due to H. pylori infection. Patient was diagnosed with H. pylori via biopsy here at [facility] [place]. Patient admits experiencing bloating, N/V, and dark blood from rectum. Patient rates the pain 7 /10 in severity. Patient is currently taking Metronidazole, Prilosec, and milk of magnesia for her H. pylori infection. She notes she takes other medications but cannot recall their names at this time. PMHx of factor 5 Leiden, phospholipid disease, blood transfusions, iron deficiency anemia, DVT, IVC filter, asthma, pulmonary embolism, GERD, Roxana fundoplication, renal calculi, anxiety, and PTSD, but no DM, HTN, arthritis, and osteoporosis. PSHx of cholecystectomy and appendectomy. FHx of DM and cardiac disease. Patient does not drink, use substances, or smoke tobacco. - History of Current Complaint Chief Complaint: EDGIBleed Time Seen by Provider: 08/04/18 17:53 Stated Complaint: VOMITING BLOOD PER PT Hx Obtained From: Patient Onset/Duration: Started Weeks Ago - One week, Still Present, Worse Since Timing: Constant Severity: Moderate Current Severity: Severe Pain Intensity: 7 Location of Pain: Epigastric Associated Signs and Symptoms: Positive: Nausea, Vomiting, Blood w/Stool - Dark blood, Other: - Bloating Aggravating Factor(s): Nothing Alleviating Factor(s): Nothing - Additional Pertinent History Primary Care Physician: [id number] - Allergy/Home Medications Allergies/Adverse Reactions: Allergies Allergy/AdvReac Type Severity Reaction Status Date / Time Cephalosporins Allergy Hives Verified 07/26/18 17:35 ibuprofen Allergy Hives Verified 07/26/18 17:35 iodine Allergy Itching Verified 07/26/18 17:35 ketorolac [From Toradol] Allergy Hives Verified 07/26/18 17:35 moxifloxacin [From Avelox] Allergy Hives Verified 07/26/18 17:35 Penicillins Allergy Hives Verified 07/26/18 17:35 raspberry Allergy Anaphylatic Verified 07/26/18 17:35 Shock shellfish derived Allergy Anaphylatic Verified 07/26/18 17:35 Shock tramadol Allergy Hives Verified 07/26/18 17:35 Tree Nuts Allergy Anaphylatic Verified 07/26/18 17:35 Shock Home Medications: Home Medications Gabapentin CAP(*) [Neurontin 300 CAP(*)] 900 mg PO BEDTIME 08/04/18 [History Confirmed 08/04/18] Sertraline* [Zoloft*] 200 mg PO BEDTIME 08/04/18 [History Confirmed 08/04/18] Warfarin TAB(*) [Coumadin TAB(*)] 7.5 mg PO BEDTIME 08/04/18 [History Confirmed 08/04/18] lamoTRIgine TAB(*) [LaMICtal TAB(*)] 200 mg PO BEDTIME 08/04/18 [History Confirmed 08/04/18] traZODone TAB* [Desyrel TAB*] 300 mg PO BEDTIME 08/04/18 [History Confirmed ] PMH/Surg Hx/FS Hx/Imm Hx Endocrine/Hematology History: Reports: Hx Blood Disorders - Factor 5 Leiden, phospholipid disease, Hx Blood Transfusions, Other Endocrine/Hematological Disorders - iron deficiency anemia Denies: Hx Diabetes Cardiovascular History: Reports: Hx Deep Vein Thrombosis, Other Cardiovascular Problems/Disorders - Factor 5 Leiden, phospholipid disease, IVC filter Denies: Hx Hypertension Respiratory History: Reports: Hx Asthma, Hx Pulmonary Embolism GI History: Reports: Hx Gastroesophageal Reflux Disease, Other GI Disorders - Roxana fundoplication History: Reports: Hx Kidney Stones Musculoskeletal History: Reports: Other Musculoskeletal History - lower back surgery with hardware, ED Denies: Hx Arthritis, Hx Osteoporosis Sensory History: Reports: Hx Vision Problem - 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 Denies: Hx Contacts or Glasses, Hx Hearing Aid Opthamlomology History: Reports: Hx Vision Problem - 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 Denies: Hx Contacts or Glasses Psychiatric History: Reports: Hx Anxiety, Hx Post Traumatic Stress Disorder - Surgical History Surgery Procedure, Year, and Place: [place] Infectious Disease History: No Infectious Disease History: Denies: Traveled Outside the [place] in Last 30 Days - Family History Known Family History: Positive: Cardiac Disease, Diabetes Family History: Breast CA - mom - Social History Alcohol Use: None Hx Substance Use: No Substance Use Type: Reports: None Smoking Status (MU): Never Smoked Tobacco Review of Systems Negative: Fever Gastrointestinal: Other - Dark rectal bleed Positive: Abdominal Pain - Epigastric, Vomiting, Nausea, Other - Bloating All Other Systems Reviewed And Are Negative: Yes Physical Exam - Summary Physical Exam Summary: VITAL SIGNS: Reviewed. GENERAL: Patient is a well-developed and obese female who is lying comfortable in the stretcher. Patient is not in any acute respiratory distress. HEAD AND FACE: Normocephalic and atraumatic. EYES: PERRLA, EOMI x 2, No injected conjunctiva. EARS: Hearing grossly intact. Ear canals and tympanic membranes are WNL. MOUTH: Oropharynx within normal limits. NECK: Supple, trachea is midline, no adenopathy, no JVD. CHEST: Symmetric, no tenderness at palpation LUNGS: Clear to auscultation bilaterally. No wheezing or crackles. CVS: RRR, S1 and S2 present, no murmurs or gallops appreciated. ABDOMEN: Positive epigastric tenderness. No signs of distention. Positive bowel sounds. No rebound no guarding, and no masses palpated. No abdominal bruit or pulsations. RECTAL EXAM: no melena, no bright blood, no hemorrhoids, and normal sphincter tone. 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 EXTREMITIES: FROM in all major joints, no edema, no cyanosis or clubbing. NEURO: Alert and oriented x 3. No acute neurological deficits. Speech is normal. SKIN: Dry and warm Triage Information Reviewed: Yes Vital Signs On Initial Exam: Initial Vitals Temp Pulse Resp BP Pulse Ox 97.3 F 99 18 125/76 100 08/04/18 15:48 08/04/18 15:48 08/04/18 15:48 08/04/18 15:48 08/04/18 15:48 Vital Signs Reviewed: Yes Diagnostics - Vital Signs Vital Signs Temp Pulse Resp BP Pulse Ox 08/04/18 17:19 97.9 F 94 20 122/85 97 08/04/18 15:48 97.3 F 99 18 125/76 100 - Laboratory Lab Results: Lab Results 08/04/18 Range/Units 17:00 Urine Color Yellow Urine Appearance Cloudy Urine pH 6.0 (5-9) Ur Specific [place] 1.016 (1.010-1.030) Urine Protein Negative (Negative) Urine Ketones Negative (Negative) Urine Blood Negative (Negative) Urine Nitrate Negative (Negative) Urine Bilirubin Negative (Negative) Urine Urobilinogen Negative (Negative) Ur Leukocyte Esterase 2+ A (Negative) Urine WBC (Auto) 2+(11-20/hpf) A (Absent) Urine RBC (Auto) 1+(3-5/hpf) A (Absent) Ur Squamous Epith Cells Present A (Absent) Urine Bacteria 1+ A (Absent) Hyaline Casts Present A (Absent) Urine Glucose Negative (Negative) Result Diagrams: 08/04/18 19:30 08/04/18 19:30 Lab Statement: Any lab studies that have been ordered have been reviewed, and results considered in the medical decision making process. - Radiology Abdomen XR Radiology Interpretation Completed By: ED Physician Summary of Radiographic Findings: Increased stool content, normal bowel patterns. Pending official radiology review. Re-Evaluation - Re-Evaluation First Eval Re-Evaluation Time: 20:44 Comment: I discussed all the findings and test results with the patient. Patient was instructed to return to the emergency room immediately if any of the symptoms return worsens. Plan of care was discussed with the patient and understands and agrees. All questions were answered at patient satisfaction. There were no further complaints or concerns. Lung exam before discharge: CTA B/ L. Good air exchange. No wheezing or crackles heard. CVS: S1 and S2 present. No murmurs appreciated. Patient is alert and oriented x 3. Patient is hemodynamically stable. Patient will be discharged home with follow up PCP in the next 2-3 days GIGU Course/Dx - Course Assessment/Plan: This patient is a 32-year-old female who presents to the emergency department with a chief complaint of having epigastric pain, nausea and vomiting, and black stools. She reports that she had an endoscopy approximately week ago with a biopsy. The patient has H. pylori. The patient is taking medications for the H. pylori, however the patient developed the above symptoms. Blood test results without any significant abnormality except for the bruises of 2.6, hemoglobin 8.8, hematocrit 27, calcium 8.4, and CRP of 13.8. Guaiac is negative. After medications the patients symptoms have significantly improved. Since the H&H is stable at her baseline and Guaiac is negative the patient will be discharged home with follow-up with PCP and GI. The patient understands and agrees. I discussed all the findings and test results with the patient. Patient was instructed to return to the emergency room immediately if any of the symptoms return worsens. Plan of care was discussed with the patient and understands and agrees. All questions were answered at patient satisfaction. There were no further complaints or concerns. Lung exam before discharge: CTA B/L. Good air exchange. No wheezing or crackles heard. CVS: S1 and S2 present. No murmurs appreciated. Patient is alert and oriented x 3. Patient is hemodynamically stable. Patient will be discharged home with follow up PCP in the next 2-3 days - Diagnoses Provider Diagnoses: Epigastric pain Discharge - Sign-Out/Discharge Documenting (check all that apply): Patient Departure - Discharge Patient Received Moderate/Deep Sedation with Procedure: No - Discharge Plan Condition: Stable Disposition: HOME Patient Education Materials: Epigastric Pain (ED) Referrals: Care [facility] [Outside] - 3 Days Gary Suresh DO [Doctor of Osteopathy] - 3 Days Additional Instructions: Follow-up with your primary care provider and GI in three days. RETURN TO THE ER IF WORSENING OR CHANGING SYMPTOMS. - Billing Disposition and Condition Condition: STABLE Disposition: Home - Attestation Statements Document Initiated by Anniee: Yes Documenting Scribe: Charly Blank Provider For Whom Angie is Documenting (Include Credential): Toño Rodriguez MD Scribe Attestation: Charly Flores, scribed for Toño Rodriguez MD on 08/04/18 at 2157. Scribe Documentation Reviewed: Yes Provider Attestation: The documentation as recorded by the scribe, Charly Blank accurately reflects the service I personally performed and the decisions made by , Toño Rodriguez MD Status of Scribe Document: Viewed
[2018-08-04 19:45] LABS: ABS Basophils 0 10^3/ul (0-0.2); ABS Eosinophils 0 10^3/ul (0-0.6); ABS Lymphocytes 0.8 10^3/ul (1.0-4.8); ABS Monocytes 0.3 10^3/ul (0-0.8); ABS Neutrophils 1.6 10^3/ul (1.5-7.7); ABS Nucleated RBC 0 10^3/ul; Eosinophil % 0 %; Hematocrit 27 % (33-41); Hemoglobin 8.8 g/dL (12.0-16.0); Lymphocyte % 28.9 %; Mean Corpuscular HGB Conc 33 g/dL (31-36); Mean Corpuscular Hemoglobin 28 pg (27-31); Mean Corpuscular Volume 83 fL (80-97); Mean Platelet Volume 7.1 fL (7.4-10.4); Nucleated Red Blood Cells % 0.1; Platelet Count 258 10^3/uL (150-450); Red Cell Distribution Width 21 % (10.5-15); White Blood Count 2.6 10^3/uL (3.5-10.8)
[2018-08-04 20:00] LABS: ALT 6 U/L (7-52); AST 8 U/L (13-39); Albumin/Globulin Ratio 1.7 (1-3); Alkaline Phosphatase 50 U/L (34-104); Anion Gap 6 mmol/L (2-11); BUN/Creatinine Ratio 12.9 (8-20); Blood Urea Nitrogen 9 mg/dL (6-24); C Reactive Protein 13.84 mg/L (<8.01); CO2 Carbon Dioxide 22 mmol/L (22-32); Calcium 8.4 mg/dL (8.6-10.3); Chloride 110 mmol/L (101-111); EGFR African American 117.3 (>60); Globulin 2.4 g/dL (2-4); Glucose 91 mg/dL (70-100); Potassium 3.7 mmol/L (3.5-5.0); Sodium 138 mmol/L (135-145); Total Protein 6.4 g/dL (6.4-8.9)
[2018-08-04 20:01] LABS: Activated Partial Thrombo Time 30.5 seconds (26.0-36.3); INR 1.11 (0.82-1.09)
[2018-08-04 20:06] LABS: HCG Pregnancy < 0.60 mIU/mL
[2018-08-04 20:57] VITALS: BP 105/82
--- NOTE | 2018-08-05 14:25 | PN ---
Progress Note - Progress Note Date of Service: 08/04/18 Note: Final abd. xr read per radiology: IMPRESSION: 1. NO EVIDENCE FOR OBSTRUCTION. 2. POSSIBLE METALLIC FOREIGN BODY IN THE RIGHT LOWER QUADRANT ALTERNATIVELY THIS MAY BE EXTERNAL TO THE PATIENT, RECOMMEND CLINICAL CORRELATION. R3 Pt. seen yesterday for pain after an upper endoscopy biopsy. Called and spoke with pt. today at 1425 and she is feeling well. No concern for ingested FB. Suspect metallic areas were external to pt. No change in treatment needed at this time. <Pravin Garcia - Last Filed: 08/05/18 14:26> Attestation Statement User Type: Provider - I was available for consult. This patient was seen by the RAJI. The patient was not presented to, seen by, or examined by me. -Otto <Lynnette Thayer - Last Filed: 08/05/18 14:32>
== END | disposition home or self-care (01) ==
LOC: ED 15:45
DX: R10.13 Epigastric pain (principal); D68.51 Activated protein C resistance; J45.909 Unspecified asthma, uncomplicated; Z86.711 Personal history of pulmonary embolism; K21.9 Gastro-esophageal reflux disease without esophagitis; F41.9 Anxiety disorder, unspecified; F43.12 Post-traumatic stress disorder, chronic; Z88.3 Allergy status to other anti-infective agents; Z88.6 Allergy status to analgesic agent; Z88.0 Allergy status to penicillin; Z88.8 Allergy status to other drugs, medicaments and biological substances; Z79.01 Long term (current) use of anticoagulants; Z79.899 Other long term (current) drug therapy; Z86.718 Personal history of other venous thrombosis and embolism; Z95.828 Presence of other vascular implants and grafts
CPT/HCPCS: 36415; 74019; 80053; 81003; 81015; 82270; 83605; 83690; 83880; 84702; 85025; 85610; 85730; 86140; 87086; 96361; 96374; 96375; 99283; J2270; J2405

== ENCOUNTER 2018-08-10 17:48 | Emergency (ER) | payer OTHER ==
[2018-08-10 17:57] VITALS: BP 126/82
== END 2018-08-10 20:19 | disposition left against medical advice (07) ==
LOC: ED 17:48
DX: R10.11 Right upper quadrant pain (principal); R10.31 Right lower quadrant pain; K92.0 Hematemesis; Z53.21 Procedure and treatment not carried out due to patient leaving prior to being seen by health care provider

== ENCOUNTER 2018-08-17 14:08 | Emergency (ER) | payer MEDICAID ==
--- NOTE | 2018-08-17 16:23 | ED ---
Complex/Multi-Sys Presentation - HPI Summary HPI Summary: A 32 y/o F, with Pert PMHx: factor 5 deficiency, presents to ED with sharp CP onset three days ago. Associated: RLE pain and swelling, nausea/vomiting. Patient has had multiple ED visits in the past month for abd pain and hematemesis, most recently on 08/10/18. She has been unable to take her pain and nausea medications because she's vomiting. Patient says she had dx: H pylori 2 weeks ago and has known ulcers. - History Of Current Complaint Chief Complaint: EDChestWallPain Time Seen by Provider: 08/17/18 16:13 Hx Obtained From: Patient Onset/Duration: Lasting Days, Still Present Severity Currently: Severe - rated 7 out of 10 Location: Pain At: - chest Character: Sharp Associated Signs And Symptoms: Positive: Nausea, Vomiting, Other - pos: RLE pain and swelling - Allergies/Home Medications Allergies/Adverse Reactions: Allergies Allergy/AdvReac Type Severity Reaction Status Date / Time Cephalosporins Allergy Hives Verified 07/26/18 17:35 ibuprofen Allergy Hives Verified 07/26/18 17:35 iodine Allergy Itching Verified 07/26/18 17:35 ketorolac [From Toradol] Allergy Hives Verified 07/26/18 17:35 moxifloxacin [From Avelox] Allergy Hives Verified 07/26/18 17:35 Penicillins Allergy Hives Verified 07/26/18 17:35 raspberry Allergy Anaphylatic Verified 07/26/18 17:35 Shock shellfish derived Allergy Anaphylatic Verified 07/26/18 17:35 Shock tramadol Allergy Hives Verified 07/26/18 17:35 Tree Nuts Allergy Anaphylatic Verified 07/26/18 17:35 Shock PMH/Surg Hx/FS Hx/Imm Hx Previously Healthy: No Endocrine/Hematology History: Reports: Hx Blood Disorders - Factor 5 Leiden, phospholipid disease, Hx Blood Transfusions, Other Endocrine/Hematological Disorders - iron deficiency anemia Denies: Hx Diabetes Cardiovascular History: Reports: Hx Deep Vein Thrombosis, Other Cardiovascular Problems/Disorders - Factor 5 Leiden, phospholipid disease, IVC filter Denies: Hx Hypertension Respiratory History: Reports: Hx Asthma, Hx Pulmonary Embolism GI History: Reports: Hx Gastroesophageal Reflux Disease, Other GI Disorders - Roxana fundoplication History: Reports: Hx Kidney Stones Musculoskeletal History: Reports: Other Musculoskeletal History - lower back surgery with hardware, ED Denies: Hx Arthritis, Hx Osteoporosis Sensory History: Reports: Hx Vision Problem - 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 Denies: Hx Contacts or Glasses, Hx Hearing Aid Opthamlomology History: Reports: Hx Vision Problem - 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 Denies: Hx Contacts or Glasses Psychiatric History: Reports: Hx Anxiety, Hx Post Traumatic Stress Disorder - Surgical History Surgery Procedure, [place], and Place[place] Infectious Disease History: No Infectious Disease History: Denies: Traveled Outside the [place] in Last 30 Days - Family History Known Family History: Positive: Cardiac Disease, Diabetes Family History: Breast CA - mom - Social History Occupation: Student Lives: With Family Alcohol Use: None Hx Substance Use: No Substance Use Type: Reports: None Hx Tobacco Use: No Smoking Status (MU): Never Smoked Tobacco Review of Systems Positive: Chest Pain Positive: Vomiting, Nausea Musculoskeletal: Other - pos: RLE pain and swelling All Other Systems Reviewed And Are Negative: Yes Physical Exam - Summary Physical Exam Summary: Appearance: Well-appearing, Obese - exam is limited by obesity, sitting in recliner chair, appears generally well Skin: Warm, dry, no obvious rash Eyes: sclera anicteric, no conjunctival pallor ENT: mucous membranes moist, pharynx appears normal Neck: Supple, nontender Respiratory: Clear to auscultation, no signs of respiratory distress Cardiovascular: Normal S1, S2. No murmurs. Normal distal pulses in tibial and radial bilaterally. Abdomen: Soft, normal active bowel sounds present, upper abd tenderness. Musculoskeletal: There is tenderness about the proximal R leg behind knee, no redness noted. Neurological: A&Ox3, awake and alert, mentation is normal, speech is fluent and appropriate Psychiatric: affect is normal, does not appear anxious or depressed Triage Information Reviewed: Yes Vital Signs On Initial Exam: Initial Vitals Temp Pulse Resp BP Pulse Ox 97.5 F 100 18 111/81 96 08/17/18 14:14 08/17/18 14:14 08/17/18 14:14 08/17/18 14:14 08/17/18 14:14 Vital Signs Reviewed: Yes Diagnostics - Vital Signs Vital Signs Temp Pulse Resp BP Pulse Ox 08/17/18 15:58 97.8 F 83 18 113/85 95 08/17/18 14:14 97.5 F 100 18 111/81 96 - Laboratory Result Diagrams: 08/17/18 17:04 08/17/18 17:04 Lab Statement: Any lab studies that have been ordered have been reviewed, and results considered in the medical decision making process. - Radiology CXR Radiology Interpretation Completed By: Radiologist Summary of Radiographic Findings: IMPRESSION: No active cardiopulmonary disease is noted. ED provider has reviewed this report. - Ultrasound No standard instances Ultrasound Interpretation Completed By: Radiologist Summary of Ultrasound Findings: RLE Venous Doppler US IMPRESSION: FINDINGS CONSISTENT WITH NONOCCLUSIVE THROMBUS OF THE RIGHT POPLITEAL VEIN. ED provider has reviewed this report. - EKG 1419 Cardiac Rate: NL - 91 bpm EKG Rhythm: Sinus Rhythm Summary of EKG Findings: NSR at 91 BPM, P waves, QRS complex, and T waves are within normal limits, T waves and intervals are normal, no ischemic changes. This is a normal EKG. Re-Evaluation - Re-Evaluation 1 Re-Evaluation Time: 18:18 Change: Improved Comment: Discussing results with patient. Complex Multi-Symp Course/Dx Assessment/Plan: Pt is a 32 y/o F, with factor 5 deficiency, who presents with sharp CP onset three days ago. Associated: RLE pain and swelling, nausea/ vomiting. Patient has had multiple ED visits in the past month for abd pain and hematemesis, most recently on 08/10/18. She has been unable to take her pain and nausea medications due to the vomiting. Physical exam is limited by obesity , but patient is seated in recliner chair and appares comfortable. She has upper abd tenderness and tenderness about the proximal R leg behind knee, no redness noted. RLE venous doppler US shows "FINDINGS CONSISTENT WITH NONOCCLUSIVE THROMBUS OF THE RIGHT POPLITEAL VEIN.". Will discharge patient home with Lovenox and Compazine. - Diagnoses Provider Diagnoses: DVT (deep venous thrombosis), Gastritis Discharge - Sign-Out/Discharge Documenting (check all that apply): Patient Departure - d/C Patient Received Moderate/Deep Sedation with Procedure: No - Discharge Plan Condition: Stable Disposition: HOME Prescriptions: Enoxaparin(*) [Lovenox(*)] 150 mg SUBCUT Q24H 14 Days #1 syringe Prochlorperazine SUPP* [Compazine Supp*] 25 mg [place] Q12H PRN #12 supp PRN Reason: Nausea Prochlorperazine TAB* [Compazine Tab*] 10 mg PO Q6H PRN #20 tab PRN Reason: Nausea Patient Education Materials: Diet for Stomach Ulcers and Gastritis (ED), Deep Vein Thrombosis (ED) Referrals: [facility] [Outside] Additional Instructions: The staff at [facility] should be able to help treat your problems until you are able to get in to see a doctor of your own choice. As your stomach is still giving you trouble and you can't reliably take the coumadin, we will switch you over to Lovenox injections once daily, at least until your stomach problem improves and you can get back on an oral anticoagulant. - Billing Disposition and Condition Condition: STABLE Disposition: Home - Attestation Statements Document Initiated by Angie: Yes Documenting Scribe: Lea Mathur Provider For Whom Angie is Documenting (Include Credential): Dr. Romulo Erickson MD Scribe Attestation: I, hina Boyded for Dr. Romulo Erickson MD on 08/18/18 at 1149. Scribe Documentation Reviewed: Yes Provider Attestation: The documentation as recorded by the Lea kemp accurately reflects the service I personally performed and the decisions made by me, Dr. Romulo Erickson MD Status of Scribana Document: Viewed
[2018-08-17] MEDS ORDERED: Prochlorperazine SUPP* 25 MG SUPP PR ONE (16:29)
[2018-08-17] MEDS ORDERED: Lidocaine 2% VISCOUS* 15 ML UDC PO ONE (16:30)
[2018-08-17] MEDS ORDERED: Al Hydrox/Mg Hydrox/Simet LIQ* 30 ML UDC PO ONE (16:30)
[2018-08-17 17:11] LABS: ABS Lymphocytes 1.1 10^3/ul (1.0-4.8); ABS Monocytes 0.3 10^3/ul (0-0.8); ABS Neutrophils 2.2 10^3/ul (1.5-7.7); Hematocrit 31 % (35-47); Hemoglobin 10.4 g/dL (12.0-16.0); Lymphocyte % 29.9 %; Mean Corpuscular HGB Conc 33 g/dL (31-36); Mean Corpuscular Hemoglobin 27 pg (27-31); Mean Corpuscular Volume 83 fL (80-97); Mean Platelet Volume 7.2 fL (7.4-10.4); Nucleated Red Blood Cells % 0.1; Platelet Count 295 10^3/uL (150-450); Red Cell Distribution Width 20 % (10.5-15); White Blood Count 3.7 10^3/uL (3.5-10.8)
[2018-08-17 17:33] LABS: INR 1.18 (0.82-1.09)
[2018-08-17 18:15] LABS: Albumin 4.2 g/dL (3.2-5.2); Albumin/Globulin Ratio 1.5 (1-3); BUN/Creatinine Ratio 15.4 (8-20); EGFR African American 127.8 (>60); EGFR Non-African American 105.6 (>60); Globulin 2.8 g/dL (2-4); Potassium 3.5 mmol/L (3.5-5.0); Total Bilirubin 0.3 mg/dL (0.2-1.0)
[2018-08-17 18:41] VITALS: BP 100/68
[2018-08-17 18:59] LABS: HCG Pregnancy 0.4 mIU/mL
[2018-08-17] MEDS ORDERED: Enoxaparin(*) 150 MG/ML 1 ML SYRINGE SUBCUT SCH (19:00)
== END 2018-08-17 18:40 | disposition home or self-care (01) ==
LOC: ED 14:08
DX: I82.431 Acute embolism and thrombosis of right popliteal vein (principal); K29.70 Gastritis, unspecified, without bleeding; R94.31 Abnormal electrocardiogram [ECG] [EKG]; D68.51 Activated protein C resistance; D50.9 Iron deficiency anemia, unspecified; J45.909 Unspecified asthma, uncomplicated; F41.9 Anxiety disorder, unspecified; F43.10 Post-traumatic stress disorder, unspecified; Z86.711 Personal history of pulmonary embolism; Z88.6 Allergy status to analgesic agent; Z88.0 Allergy status to penicillin; Z88.8 Allergy status to other drugs, medicaments and biological substances; Z88.3 Allergy status to other anti-infective agents; Z86.718 Personal history of other venous thrombosis and embolism; Z95.828 Presence of other vascular implants and grafts
CPT/HCPCS: 36415; 71046; 80053; 84484; 84702; 85025; 85610; 93005; 99282; A9270-GY; J1650

== ENCOUNTER 2018-08-24 06:22 | Emergency (ER) | payer MEDICAID ==
[2018-08-24] MEDS ORDERED: Famotidine IV* 10 MG/ML 2 ML (20 mg) IV SLOW PU ONE (06:34)
[2018-08-24] MEDS ORDERED: NS 0.9% 1000 ML** 1,000 ML IV ONE (06:35)
[2018-08-24] MEDS ORDERED: Metoclopramide IV* 5 MG/ML 2 ML VIAL IV ONE (06:35)
[2018-08-24] MEDS ORDERED: Al Hydrox/Mg Hydrox/Simet LIQ* 30 ML UDC PO ONE (06:35)
[2018-08-24] MEDS ORDERED: LORazepam TAB(*) 0.5 MG PO ONE (07:13)
[2018-08-24 07:39] LABS: ABS Lymphocytes 1.2 10^3/ul (1.0-4.8); ABS Monocytes 0.3 10^3/ul (0-0.8); ABS Neutrophils 2.1 10^3/ul (1.5-7.7); Hematocrit 30 % (35-47); Hemoglobin 9.6 g/dL (12.0-16.0); Lymphocyte % 33.1 %; Mean Corpuscular HGB Conc 32 g/dL (31-36); Mean Corpuscular Hemoglobin 27 pg (27-31); Mean Corpuscular Volume 83 fL (80-97); Mean Platelet Volume 6.8 fL (7.4-10.4); Platelet Count 271 10^3/uL (150-450); Red Blood Count 3.63 10^6 /uL (3.70-4.87); Red Cell Distribution Width 20 % (10.5-15); White Blood Count 3.6 10^3/uL (3.5-10.8)
[2018-08-24 07:51] LABS: INR 1.07 (0.82-1.09)
[2018-08-24 07:51] LABS: Urine Appearance Turbid; Urine Bacteria 1+ (Absent); Urine Bilirubin Negative (Negative); Urine Blood Negative (Negative); Urine Color Amber; Urine Glucose Negative (Negative); Urine Ketones Negative (Negative); Urine Nitrite Negative (Negative); Urine Protein 2+(100 mg/dL) (Negative); Urine Red Blood Cell 3+(>10/hpf) (Absent); Urine Specific Gravity 1.029 (1.010-1.030); Urine Squamous Epithelial Cell Present (Absent); Urine Urobilinogen Negative (Negative); Urine White Blood Cell 1+(6-10/hpf) (Absent)
[2018-08-24 07:58] LABS: ALT 5 U/L (7-52); AST 9 U/L (13-39); Albumin/Globulin Ratio 1.7 (1-3); Alkaline Phosphatase 54 U/L (34-104); Anion Gap 9 mmol/L (2-11); BUN/Creatinine Ratio 11.9 (8-20); Blood Urea Nitrogen 8 mg/dL (6-24); C Reactive Protein 6.41 mg/L (<8.01); CO2 Carbon Dioxide 25 mmol/L (22-32); Calcium 8.8 mg/dL (8.6-10.3); Chloride 105 mmol/L (101-111); EGFR African American 123.4 (>60); Globulin 2.3 g/dL (2-4); Glucose 101 mg/dL (70-100); Magnesium 1.8 mg/dL (1.9-2.7); Potassium 3.1 mmol/L (3.5-5.0); Sodium 139 mmol/L (135-145); Total Protein 6.3 g/dL (6.4-8.9)
[2018-08-24 08:04] LABS: HCG Pregnancy 0.68 mIU/mL
[2018-08-24] MEDS ORDERED: Potassium Chlor TAB* 20 MEQ TAB.ER PO ONE (08:13)
[2018-08-24 08:33] VITALS: BP 114/79
--- NOTE | 2018-08-24 08:39 | ED ---
Abdominal Pain/Female - HPI Summary HPI Summary: Patient is a 32-year-old female with history of DVT, PE, recent diagnosis of H. pylori, chronic abdominal pain presenting to the ED with nausea, vomiting, diarrhea, bilateral mid abdominal pain. Denies any SOB, but endorses mild CP. Patient has IVC filter. She is endorsing bilateral abdominal pain which has been present for several weeks, but has been worsening. She endorses melena and hematemesis. Melena has been present times several weeks, however hematemesis has been present over the past 24 hours. She states this is mild. She endorses sweats and chills, but denies any subjective fevers. She is requesting pain control. She states she is allergic to tramadol, aspirin, Toradol, and ibuprofen. Her previous visits have stated she has been requesting pain control of morphine, this possibly worsening her abdominal pain and making her drowsy, however she continues to request this. PMH includes factor V Leiden deficiency, antiphospholipid, Jose-Danlos, PTSD, DVT and PE. Medications include Coumadin, however has not been taking this as frequently and has been using Lovenox as needed for when she has nausea and vomiting, unable to keep her Coumadin down. - History of Current Complaint Chief Complaint: EDAbdPain Stated Complaint: ABD PAIN/NAUSEA/VOMITING PER PT Time Seen by Provider: 08/24/18 06:31 Hx Obtained From: Patient ?: No Onset/Duration: Sudden Onset Timing: Constant Severity Initially: Severe Severity Currently: Severe Pain Intensity: 5 Pain Scale Used: 0-10 Numeric Location: Other - bilateral mid abdominal pain Radiates: No Character: Sharp, Burning, Cramping Aggravating Factor(s): Nothing Alleviating Factor(s): Nothing Associated Signs and Symptoms: Positive: Diaphoresis, Cough, Chest Pain, Nausea , Vomiting, Diarrhea. Negative: Fever, Back Pain, Constipation, Blood in Stool , Urinary Symptoms, Decreased Appetite, Vaginal Bleeding Allergies/Adverse Reactions: Allergies Allergy/AdvReac Type Severity Reaction Status Date / Time Cephalosporins Allergy Hives Verified 08/24/18 06:26 ibuprofen Allergy Hives Verified 08/24/18 06:26 iodine Allergy Itching Verified 08/24/18 06:26 ketorolac [From Toradol] Allergy Hives Verified 08/24/18 06:26 moxifloxacin [From Avelox] Allergy Hives Verified 08/24/18 06:26 Penicillins Allergy Hives Verified 08/24/18 06:26 raspberry Allergy Anaphylatic Verified 08/24/18 06:26 Shock shellfish derived Allergy Anaphylatic Verified 08/24/18 06:26 Shock tramadol Allergy Hives Verified 08/24/18 06:26 Tree Nuts Allergy Anaphylatic Verified 08/24/18 06:26 Shock PMH/Surg Hx/FS Hx/Imm Hx Previously Healthy: Yes Endocrine/Hematology History: Reports: Hx Blood Disorders - Factor 5 Leiden, phospholipid disease, Hx Blood Transfusions, Other Endocrine/Hematological Disorders - iron deficiency anemia Denies: Hx Diabetes Cardiovascular History: Reports: Hx Deep Vein Thrombosis, Other Cardiovascular Problems/Disorders - Factor 5 Leiden, phospholipid disease, IVC filter Denies: Hx Hypertension Respiratory History: Reports: Hx Asthma, Hx Pulmonary Embolism GI History: Reports: Hx Gastroesophageal Reflux Disease, Other GI Disorders - Roxana fundoplication History: Reports: Hx Kidney Stones Musculoskeletal History: Reports: Other Musculoskeletal History - lower back surgery with hardware, ED Denies: Hx Arthritis, Hx Osteoporosis Sensory History: Reports: Hx Vision Problem - 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 Denies: Hx Contacts or Glasses, Hx Hearing Aid Opthamlomology History: Reports: Hx Vision Problem - 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 Denies: Hx Contacts or Glasses Psychiatric History: Reports: Hx Anxiety, Hx Post Traumatic Stress Disorder - Surgical History Surgery Procedure, Year, and Place: [facility] - Immunization History Date of Tetanus Vaccine: utd Date of Influenza Vaccine: fall 2017 Hx Pertussis Vaccination: No Immunizations Up to Date: Yes Infectious Disease History: No Infectious Disease History: Denies: Traveled Outside the [place] in Last 30 Days - Family History Known Family History: Positive: Cardiac Disease, Diabetes Family History: Breast CA - mom - Social History Occupation: Unemployed Lives: With Family Alcohol Use: None Hx Substance Use: No Substance Use Type: Reports: None Hx Tobacco Use: No Smoking Status (MU): Never Smoked Tobacco Review of Systems Positive: Chills, Skin Diaphoresis. Negative: Fever Positive: Chest Pain. Negative: Palpitations Negative: Shortness Of Breath, Cough Positive: Abdominal Pain, Vomiting, Diarrhea, Nausea Positive: no symptoms reported, see HPI Negative: Arthralgia, Myalgia Skin: Negative Positive: Weakness. Negative: Headache All Other Systems Reviewed And Are Negative: Yes Physical Exam Triage Information Reviewed: Yes Vital Signs On Initial Exam: Initial Vitals Temp Pulse Resp BP Pulse Ox 97.9 F 120 16 116/77 96 08/24/18 06:23 08/24/18 06:23 08/24/18 06:23 08/24/18 06:23 08/24/18 06:23 Vital Signs Reviewed: Yes Appearance: Positive: Well-Appearing Skin: Positive: Skin Color Reflects Adequate Perfusion Neck: Positive: No Lymphadenopathy Respiratory/Lung Sounds: Positive: Clear to Auscultation, Breath Sounds Present Cardiovascular: Positive: Pulses are Symmetrical in both Upper and Lower Extremities Abdomen Description: Positive: Other: - Tenderness on palpation throughout Musculoskeletal: Positive: Normal, Strength/ROM Intact, Makayla Sign Right, Other - right leg pain on palpation ( hx of DVT ) recent dx Neurological: Positive: Sensory/Motor Intact, Speech Normal Psychiatric: Positive: Affect/Mood Appropriate Diagnostics - Vital Signs Vital Signs Temp Pulse Resp BP Pulse Ox 08/24/18 08:32 97.0 F 109 23 114/79 98 08/24/18 07:30 26 08/24/18 06:23 97.9 F 120 16 116/77 96 - Laboratory Lab Results: Lab Results 08/24/18 08/24/18 08/24/18 Range/Units 07:30 07:31 07:31 WBC 3.6 (3.5-10.8) 10^3/uL RBC 3.63 L (3.70-4.87) 10^6 /uL Hgb 9.6 L (12.0-16.0) g/dL Hct 30 L (35-47) % MCV 83 (80-97) fL MCH 27 (27-31) pg MCHC 32 (31-36) g/dL RDW 20 H (10.5-15) % Plt Count 271 (150-450) 10^3/uL MPV 6.8 L (7.4-10.4) fL Neut % (Auto) 57.0 % Lymph % (Auto) 33.1 % [place] % (Auto) 9.6 % Eos % (Auto) 0.0 % Baso % (Auto) 0.3 % Absolute Neuts (auto) 2.1 (1.5-7.7) 10^3/ul Absolute Lymphs (auto) 1.2 (1.0-4.8) 10^3/ul Absolute Monos (auto) 0.3 (0-0.8) 10^3/ul Absolute Eos (auto) 0.0 (0-0.6) 10^3/ul Absolute Basos (auto) 0.0 (0-0.2) 10^3/ul Absolute Nucleated RBC 0.0 10^3/ul Nucleated RBC % 0.0 INR (Anticoag Therapy) 1.07 (0.82-1.09) Sodium (135-145) mmol/L Potassium (3.5-5.0) mmol/L Chloride (101-111) mmol/L Carbon Dioxide (22-32) mmol/L Anion Gap (2-11) mmol/L BUN (6-24) mg/dL Creatinine (0.51-0.95) mg/dL Est GFR ( Amer) (>60) Est GFR (Non-Af Amer) (>60) BUN/Creatinine Ratio (8-20) Glucose (70-100) mg/dL Lactic Acid (0.5-2.0) mmol/L Calcium (8.6-10.3) mg/dL Magnesium (1.9-2.7) mg/dL Total Bilirubin (0.2-1.0) mg/dL AST (13-39) U/L ALT (7-52) U/L Alkaline Phosphatase (34-104) U/L Troponin I (<0.04) ng/mL C-Reactive Protein (<8.01) mg/L Total Protein (6.4-8.9) g/dL Albumin (3.2-5.2) g/dL Globulin (2-4) g/dL Albumin/Globulin Ratio (1-3) Lipase (11.0-82.0) U/L Beta HCG, Quant mIU/mL Urine Color Cynthia Urine Appearance Turbid Urine pH 5.0 (5-9) Ur Specific [place] 1.029 (1.010-1.030) Urine Protein 2+(100 mg/dl) A (Negative) Urine Ketones Negative (Negative) Urine Blood Negative (Negative) Urine Nitrate Negative (Negative) Urine Bilirubin Negative (Negative) Urine Urobilinogen Negative (Negative) Ur Leukocyte Esterase Trace A (Negative) Urine WBC (Auto) 1+(6-10/hpf) A (Absent) Urine RBC (Auto) 3+(>10/hpf) A (Absent) Ur Squamous Epith Cells Present A (Absent) Urine Bacteria 1+ A (Absent) Urine Glucose Negative (Negative) 08/24/18 08/24/18 Range/Units 07:31 07:31 WBC (3.5-10.8) 10^3/uL RBC (3.70-4.87) 10^6 /uL Hgb (12.0-16.0) g/dL Hct (35-47) % MCV (80-97) fL MCH (27-31) pg MCHC (31-36) g/dL RDW (10.5-15) % Plt Count (150-450) 10^3/uL MPV (7.4-10.4) fL Neut % (Auto) % Lymph % (Auto) % [place] % (Auto) % Eos % (Auto) % Baso % (Auto) % Absolute Neuts (auto) (1.5-7.7) 10^3/ul Absolute Lymphs (auto) (1.0-4.8) 10^3/ul Absolute Monos (auto) (0-0.8) 10^3/ul Absolute Eos (auto) (0-0.6) 10^3/ul Absolute Basos (auto) (0-0.2) 10^3/ul Absolute Nucleated RBC 10^3/ul Nucleated RBC % INR (Anticoag Therapy) (0.82-1.09) Sodium 139 (135-145) mmol/L Potassium 3.1 L (3.5-5.0) mmol/L Chloride 105 (101-111) mmol/L Carbon Dioxide 25 (22-32) mmol/L Anion Gap 9 (2-11) mmol/L BUN 8 (6-24) mg/dL Creatinine 0.67 (0.51-0.95) mg/dL Est GFR ( Amer) 123.4 (>60) Est GFR (Non-Af Amer) 102.0 (>60) BUN/Creatinine Ratio 11.9 (8-20) Glucose 101 H (70-100) mg/dL Lactic Acid 0.8 (0.5-2.0) mmol/L Calcium 8.8 (8.6-10.3) mg/dL Magnesium 1.8 L (1.9-2.7) mg/dL Total Bilirubin 0.30 (0.2-1.0) mg/dL AST 9 L (13-39) U/L ALT 5 L (7-52) U/L Alkaline Phosphatase 54 (34-104) U/L Troponin I 0.00 (<0.04) ng/mL C-Reactive Protein 6.41 (<8.01) mg/L Total Protein 6.3 L (6.4-8.9) g/dL Albumin 4.0 (3.2-5.2) g/dL Globulin 2.3 (2-4) g/dL Albumin/Globulin Ratio 1.7 (1-3) Lipase < 10 L (11.0-82.0) U/L Beta HCG, Quant 0.68 mIU/mL Urine Color Urine Appearance Urine pH (5-9) Ur Specific [place] (1.010-1.030) Urine Protein (Negative) Urine Ketones (Negative) Urine Blood (Negative) Urine Nitrate (Negative) Urine Bilirubin (Negative) Urine Urobilinogen (Negative) Ur Leukocyte Esterase (Negative) Urine WBC (Auto) (Absent) Urine RBC (Auto) (Absent) Ur Squamous Epith Cells (Absent) Urine Bacteria (Absent) Urine Glucose (Negative) Result Diagrams: 08/24/18 07:31 08/24/18 07:31 Lab Statement: Any lab studies that have been ordered have been reviewed, and results considered in the medical decision making process. Abdominal Pain Fem Course/Dx - Course Course Of Treatment: During the course of treatment, the patient is evaluated for bilateral abdominal pain. She has had multiple scans over the past 2 months which showed no acute findings. She was recently diagnosed with H. pylori infection which could be contributory, however she denies any pain to the epigastric region. On arrival to the ED, she is requesting pain medication. She has been taking Tylenol at home without relief. She continues to take her Coumadin or Lovenox depending on if she is able to swallow Coumadin from her recent emesis episodes. Discussed with the patient at length attempting to avoid any CT scan at this time as this is likely from her H. pylori infection or chronic abdominal pain otherwise. I have offered famotidine , however she declined stating this will not help her symptoms. She is allergic to many medications. I have offered her Ativan for her symptoms to which she accepts. We were unable to obtain IV access. Labs show H&H at her typical. Potassium low at 3.1. INR 1.07 which is subtherapeutic, however within her usual range when in ED. She does have trace leukocytes and 1+ WBCs which is positive for a mild UTI. She is asymptomatic. We will send off for cultures; however she remains on antibiotics for her H. pylori infection of tetracycline and metronidazole. On re-examination, patient is resting comfortably and sleeping. Difficult to arouse after 0.5mg Ativan given. Upon wakening she begins to c/o 10/10 abd pain. I have discussed with the patient her lab results, the importance of taking her lovenox if she is unable to take her Coumadin (patient has antiemetics at home), and f/u with [facility] this week. Potassium chloride slightly low and will replete with 4 days BID. She is dx with abdominal pain and hypokalemia. EKG shows tachycardia without other abnormalities. - Diagnoses Differential Diagnosis: Positive: Other - Chronic abdominal pain, H pylori, UTI , GI bleed Provider Diagnoses: Abdominal pain Discharge - Sign-Out/Discharge Documenting (check all that apply): Patient Departure Patient Received Moderate/Deep Sedation with Procedure: No - Discharge Plan Condition: Stable Disposition: HOME Prescriptions: Potassium Chlor TAB* [Potassium Chlor TAB 20 MEQ*] 20 meq PO BID #8 tab.er Patient Education Materials: Hypokalemia (ED), Acute Abdominal Pain (ED) Referrals: [facility] [Outside] No Primary Care Phys,NOPCP [Primary Care Provider] - Additional Instructions: Please follow up with [facility] clinic For abdomen pain continue to take maalox plus over the counter and all your medications at home - Billing Disposition and Condition Condition: STABLE Disposition: Home
== END 2018-08-24 08:32 | disposition home or self-care (01) ==
LOC: ED 06:22
DX: R10.9 Unspecified abdominal pain (principal); R94.31 Abnormal electrocardiogram [ECG] [EKG]; D68.51 Activated protein C resistance; Q79.6 Ehlers-Danlos syndromes; F43.10 Post-traumatic stress disorder, unspecified; J45.909 Unspecified asthma, uncomplicated; K21.9 Gastro-esophageal reflux disease without esophagitis; F41.9 Anxiety disorder, unspecified; Z95.9 Presence of cardiac and vascular implant and graft, unspecified; Z88.6 Allergy status to analgesic agent; Z88.8 Allergy status to other drugs, medicaments and biological substances; Z86.718 Personal history of other venous thrombosis and embolism; Z86.711 Personal history of pulmonary embolism; Z79.01 Long term (current) use of anticoagulants; Z88.3 Allergy status to other anti-infective agents; Z88.0 Allergy status to penicillin; Z87.442 Personal history of urinary calculi; Z90.49 Acquired absence of other specified parts of digestive tract
CPT/HCPCS: 36415; 80053; 81003; 81015; 83605; 83690; 83735; 84484; 84702; 85025; 85610; 86140; 87086; 93005; 99282; A9270-GY

== ENCOUNTER 2018-08-30 04:21 | Inpatient (IN) | payer OTHER, MEDICAID ==
[2018-08-30] MEDS ORDERED: EPINEPHRINE 1 MG/ML 1 ML VIAL IM ONE (04:25)
[2018-08-30] MEDS ORDERED: diPHENhydraMINE IV* 50 MG/ML 1 ml VIAL (BENADRYL) IV ONE (04:26)
[2018-08-30] MEDS ORDERED: methylPREDNISolone 125 MG* 2 ML VIAL IV ONE (04:28)
--- NOTE | 2018-08-30 04:28 | ED ---
Allergic Reaction/Systemic - HPI Summary HPI Summary: Pt is a 32 y/o F presenting to the ED with a chief complaint of an allergic reaction. She states she accidentally ate a walnut which she is allergic to, and when shes eaten them in the past she has been intubated quickly. She reports difficulty breathing and throat tightening. She denies hives. - History of Current Complaint Time Seen by Provider: 08/30/18 04:25 Hx Obtained From: Patient Onset/Duration: Sudden Onset, Started minutes ago, Still Present Timing: Constant, Lasting Minutes Severity Initially: Moderate Severity Currently: Severe Pain Scale Used: 0-10 Numeric Character: Swelling Aggravating Factor(s): Other - accidental ingestion of walnuts Alleviating Factor(s): Nothing Associated Signs And Symptoms: Positive: Difficulty Breathing, Hoarseness, Throat Tightening - Allergies/Home Medications Allergies/Adverse Reactions: Allergies Allergy/AdvReac Type Severity Reaction Status Date / Time Cephalosporins Allergy Hives Verified 08/30/18 04:24 ibuprofen Allergy Hives Verified 08/30/18 04:24 iodine Allergy Itching Verified 08/30/18 04:24 ketorolac [From Toradol] Allergy Hives Verified 08/30/18 04:24 moxifloxacin [From Avelox] Allergy Hives Verified 08/30/18 04:24 Penicillins Allergy Hives Verified 08/30/18 04:24 raspberry Allergy Anaphylatic Verified 08/30/18 04:24 Shock shellfish derived Allergy Anaphylatic Verified 08/30/18 04:24 Shock tramadol Allergy Hives Verified 08/30/18 04:24 Tree Nuts Allergy Anaphylatic Verified 08/30/18 04:24 Shock PMH/Surg Hx/FS Hx/Imm Hx Previously Healthy: No Endocrine/Hematology History: Reports: Hx Blood Disorders - Factor 5 Leiden, phospholipid disease, Hx Blood Transfusions, Other Endocrine/Hematological Disorders - iron deficiency anemia Denies: Hx Diabetes Cardiovascular History: Reports: Hx Deep Vein Thrombosis, Other Cardiovascular Problems/Disorders - Factor 5 Leiden, phospholipid disease, IVC filter Denies: Hx Hypertension Respiratory History: Reports: Hx Asthma, Hx Pulmonary Embolism GI History: Reports: Hx Gastroesophageal Reflux Disease, Other GI Disorders - Roxana fundoplication History: Reports: Hx Kidney Stones Musculoskeletal History: Reports: Other Musculoskeletal History - lower back surgery with hardware, ED Denies: Hx Arthritis, Hx Osteoporosis Sensory History: Reports: Hx Vision Problem - 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 Denies: Hx Contacts or Glasses Opthamlomology History: Reports: Hx Vision Problem - 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 Denies: Hx Contacts or Glasses Psychiatric History: Reports: Hx Anxiety, Hx Post Traumatic Stress Disorder - Surgical History Surgery Procedure, Year, and Place: [facility] - Immunization History Date of Tetanus Vaccine: utd Date of Influenza Vaccine: fall 2017 Infectious Disease History: Denies: Traveled Outside the [place] in Last 30 Days - Family History Known Family History: Positive: Cardiac Disease, Diabetes Family History: Breast CA - mom - Social History Alcohol Use: None Hx Substance Use: No Substance Use Type: Reports: None Hx Tobacco Use: No Smoking Status (MU): Never Smoked Tobacco Review of Systems Positive: Other - throat tightening Positive: Shortness Of Breath Negative: Other - hives All Other Systems Reviewed And Are Negative: Yes Physical Exam - Summary Physical Exam Summary: Appearance: Obese woman lying on the stretcher in obvious respiratory distress with stridor. Shes only able to speak in short phrases. Skin: Warm, dry, no obvious rash Eyes: sclera anicteric, no conjunctival pallor ENT: mucous membranes moist, pharynx appears normal Neck: Supple, nontender Respiratory: Clear to auscultation, no signs of respiratory distress Cardiovascular: Normal S1, S2. No murmurs. Normal distal pulses in tibial and radial bilaterally. Abdomen: Soft, nontender, normal active bowel sounds present Musculoskeletal: Normal, Strength/ROM Intact Neurological: A&Ox3, awake and alert, mentation is normal, speech is fluent and appropriate Psychiatric: Pt is very anxious Triage Information Reviewed: Yes Vital Signs Reviewed: Yes Allergic Reaction Course/Dx - Course Course Of Treatment: Pt is a 32 y/o F presenting to the ED with a chief complaint of an allergic reaction. She states she accidentally ate a walnut which she is allergic to, and when shes eaten them in the past she has been intubated quickly. She reports difficulty breathing and throat tightening. She denies hives. In the ED course, the pt was given numerous shots of epinephrine and Benadryl to alleviate her sx. She was intubated to establish an airway, and a central line will be placed by the anesthesiologist. [place] [facility] [place]ig[place] with dx including anaphylaxis and airway obstruction. - Diagnoses Provider Diagnoses: Anaphylaxis, Airway obstruction - Critical Care Time Critical Care Time: 75-104 min Discharge - Sign-Out/Discharge Documenting (check all that apply): Patient Departure Patient Received Moderate/Deep Sedation with Procedure: No - Discharge Plan Condition: Stable Disposition: ADMITTED TO [facility] Referrals: Care [facility] [Outside] - Attestation Statements Document Initiated by Scribe: Yes Documenting Scribe: Chelita Doe Provider For Whom Princeibe is Documenting (Include Credential): Romulo Erickson MD. Scribe Attestation: Chelita Flores, scribed for Romulo Erickson MD. on 08/30/18 at 0702. Status of Scribe Document: Ready
[2018-08-30] MEDS ORDERED: EPINEPHrine,Rac 2.25% NEB.SOL* 0.5 ML INH ONE ×4 (04:32→15:00)
[2018-08-30] MEDS ORDERED: EPINEPHrine,Rac 2.25% NEB.SOL* 0.5 ML ONE ×3 (04:42→04:58)
[2018-08-30] MEDS ORDERED: Epinephrine DRIP 4 mcg/ml 250 mls (dosed in mcg/min) IV SCH ×4 (05:00)
[2018-08-30] MEDS ORDERED: Midazolam* 1 MG/ML 5 ML VIAL (5 MG) ONE (05:17)
[2018-08-30] MEDS ORDERED: Lidocaine 4% TOPICAL* 50 ML TOP.SOLN ONE (05:17)
[2018-08-30] MEDS ORDERED: Lidocaine 1% INJ* 10 MG/ML 30 ML SDV ONE (05:18)
[2018-08-30] MEDS ORDERED: Propofol* 0 ML ONE (05:18)
[2018-08-30] MEDS ORDERED: Succinylcholine* 20 MG/ML 10 ML VIAL ONE (05:18)
[2018-08-30] MEDS ORDERED: EPINEPHrine SYR 0.1MG/ML* SYRINGE ONE (05:19)
[2018-08-30] MEDS ORDERED: Propofol* 100 ML ONE ×2 (05:31→07:08)
[2018-08-30] MEDS: Propofol* 100 ML IV SCH ×5 (05:31→13:30)
[2018-08-30] MEDS ORDERED: Midazolam concentrated* 5 MG/ML 1 ml VIAL ONE ×2 (05:33→06:00)
[2018-08-30] MEDS ORDERED: fentaNYL* 50 MCG/ML 2 ML VIAL (100 MCG VIAL) ONE (05:39)
[2018-08-30] MEDS ORDERED: fentaNYL* 50 MCG/ML 2 ML VIAL (100 MCG VIAL) IV ONE (06:53)
[2018-08-30] MEDS ORDERED: Midazolam* 1 MG/ML 5 ML VIAL (5 MG) IV SLOW PU ONE (06:53)
[2018-08-30] MEDS ORDERED: Lidocaine 1% MDV 20 ML INJ ONE (06:55)
[2018-08-30] MEDS ORDERED: Lidocaine 4% TOPICAL* 50 ML TOP.SOLN TOPICAL ONE (06:55)
[2018-08-30] MEDS ORDERED: Propofol* 10 MG/ML 20 ML BTL IV PUSH ONE (06:56)
[2018-08-30] MEDS ORDERED: NS 0.9% 1000 ML** 1,000 ML IV ONE (07:14)
[2018-08-30] MEDS: Lactated Ringers 1000 ML Bag* 1,000 ML IV SCH ×2 (08:30→16:28)
[2018-08-30 08:46] LABS: INR 1.04 (0.82-1.09)
[2018-08-30 09:11] LABS: Albumin/Globulin Ratio 1.7 (1-3); BUN/Creatinine Ratio 9.6 (8-20); Calcium 8.5 mg/dL (8.6-10.3); EGFR African American 111.8 (>60); EGFR Non-African American 92.4 (>60); Globulin 2.4 g/dL (2-4); Potassium 3.7 mmol/L (3.5-5.0); Total Bilirubin 0.2 mg/dL (0.2-1.0); Total Protein 6.4 g/dL (6.4-8.9)
[2018-08-30] MEDS ORDERED: Chlorhexidine MOUTHWASH 0.12%* 15 ML UDC TOPICAL SCH ×3 (10:00→12:00)
[2018-08-30 10:12] LABS: ABS Lymphocytes 0.2 10^3/ul (1.0-4.8); ABS Monocytes 0.1 10^3/ul (0-0.8); ABS Neutrophils 10.1 10^3/ul (1.5-7.7); Hematocrit 31 % (35-47); Hemoglobin 10.1 g/dL (12.0-16.0); Lymphocyte % 2.3 %; Mean Corpuscular HGB Conc 32 g/dL (31-36); Mean Corpuscular Hemoglobin 28 pg (27-31); Mean Corpuscular Volume 85 fL (80-97); Mean Platelet Volume 7.7 fL (7.4-10.4); Platelet Count 315 10^3/uL (150-450); Red Blood Count 3.68 10^6 /uL (3.70-4.87); Red Cell Distribution Width 20 % (10.5-15); White Blood Count 10.5 10^3/uL (3.5-10.8)
--- NOTE | 2018-08-30 11:04 | HP ---
ADMISSION HISTORY AND PHYSICAL: DATE OF ADMISSION: 08/30/18 REASON FOR ADMISSION: Anaphylaxis. HISTORY OF PRESENT ILLNESS: This patient is a 32-year-old white female with multiple medical problems, including morbid obesity, deep venous thrombosis (s/ p IVC filter), antiphospholipid syndrome, posttraumatic stress disorder, and multiple allergies, who presented to the emergency room with anaphylaxis from eating walnuts (which have produced anaphylaxis in the past). Patient was intubated and placed on an epinephrine drip. This patient has multiple allergies, including WALNUTS, CEPHALOSPORINS, IBUPROFEN, IODINE, KETOROLAC, MOXIFLOXACIN, PENICILLINS, RASPBERRY, SHELLFISH, TRAMADOL, and TREE NUTS, all of which produce either urticaria or anaphylactic shock. The patient was most recently in this hospital in July of 2018 with complaints of abdominal pain, and upper GI endoscopy revealed gastric ulcers and the patient was H. pylori positive. Was discharged on 07/29/18 on metronidazole, tetracycline, and bismuth. It is unclear if the patient was compliant with this medication regimen. There is no other history available at this time. OUTPATIENT MEDICATIONS: 1. Warfarin 7.5 mg daily. 2. Trazodone 300 mg at bedtime, 3. Sertraline 200 mg daily. 4. Seroquel 800 mg at bedtime, 5. Gabapentin 900 mg at bedtime. 6. Polyethylene glycol 17 g twice a day as needed for constipation. 7. Pantoprazole 40 mg twice daily. DRUG ALLERGIES: As mentioned. SOCIAL HISTORY: The patient is and has two children, but lives with her mother. There is no prior history of alcohol abuse, although there is some question about abuse of prescription opiates. REVIEW OF SYSTEMS: Unobtainable. PHYSICAL EXAMINATION GENERAL: The patient was unresponsive on a propofol infusion and was intubated and receiving mechanical ventilation. VITAL SIGNS: Temperature was 98.8, heart rate was 112 and regular, respiratory rate was 26, O2 sat was 98% with an FiO2 of 40%, blood pressure 120/70. HEENT: Pupils were mid position and reactive. There was no facial asymmetry. Orotracheal tube in place. CHEST: Clear. There was no wheezing or crackles. CARDIAC EXAM: Revealed no murmurs. ABDOMEN: Obese. EXTREMITIES: Warm, not cyanotic, and there was 1+ nonpitting edema. DIAGNOSTIC STUDIES/LAB DATA: Chest x-ray revealed clear lung francis and endotracheal tube was positioned in the right mainstem bronchus and was withdrawn and a central venous catheter was properly positioned in the superior vena cava. EKG is pending and electrolytes revealed a bicarb of 13, anion gap of 14, glucose 306, a chloride of 112, INR of 1.04. CBC pending. IMPRESSION: The patient with an anaphylactic reaction to walnuts and is clinically stable at this time, on very low-dose epinephrine. There is a metabolic acidosis, which seems to be partly hyperchloremic and partly high anion gap - the anion gap portion could be lactic acidosis from epinephrine infusion, or could be diabetic ketoacidosis. A serum lactate level was pending. MANAGEMENT PLAN: For now, we will provide general supportive care and taper the epinephrine. Nothing at this point is necessary for the acidosis; however, we will monitor the glucose, bicarb, and anion gap. Later in the day, we will let the patient awaken and evaluate for extubation. CRITICAL CARE TIME: 70 minutes. [id number]/[facility] #: [id number] EVELIA
[2018-08-30 13:53] LABS: BUN/Creatinine Ratio 10.7 (8-20); EGFR African American 151.8 (>60); EGFR Non-African American 125.5 (>60); Potassium 4.3 mmol/L (3.5-5.0)
[2018-08-30] MEDS ORDERED: Albuterol 2.5 MG/3 ML NEB.SOL* (0.083%) INH ONE ×2 (14:52→16:53)
--- NOTE | 2018-08-30 15:49 | PN ---
Progress Note - Progress Note Date of Service: 08/30/18 Note: Was extubated this afternoon and post-extubation received racemic epinephrine for ? inspiratory stridor. Afterward, was breathing comfortably - is hoarse but no persistent stridor.
[2018-08-30] MEDS ORDERED: Albuterol (2.5 MG) 0.5 % CONC 2.5 MG/0.5 ML NEB.SOLN (ICU and ED only) INH ONE (16:30)
[2018-08-30] MEDS ORDERED: Warfarin TAB(*) 7.5 MG PO SCH (17:00)
--- NOTE | 2018-08-30 17:20 | PN ---
Progress Note - Progress Note Date of Service: 08/30/18 Note: Patient now requesting to leave AMA. She has shown no evidence of an allergic reaction (i.e., no urticaria, laryngeal edema, or circulatory shock), and was vocalizing normally in ED, which is very unlikely with laryngeal edema. She was intubated primarily because she said that she had ingested walnuts and that this had required intubation in the past. The anesthesiologuist who intubated the patient stated that there was little little or no laryngeal edema at the time of the intubation. 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 She has been in three hospitals in the last week, which is consistent with this diagnosis.
[2018-08-30 17:46] VITALS: BP 130/90
--- NOTE | 2018-08-30 20:42 | DS ---
DISCHARGE SUMMARY: DATE OF ADMISSION: 08/30/18 DATE OF DISCHARGE: 08/30/18 HISTORY OF PRESENT ILLNESS: The patient is a 32-year-old female who is admitted from the emergency r o with a diagnosis of anaphylaxis secondary to ingestion of walnuts. The patient has a long histor y of alleged allergies and drove herself to the emergency room this morning and informed the ER staff that she had ingested walnuts and usually required intubation. The patient was intubated but showed no signs of anaphylaxis. Anesthesiologist who intubated the patient did note that there was no phillip ngeal edema at the time of intubation and there was no urticaria as well. The patient was subsequent ly admitted to the Intensive Care Unit and later in the day was extubated. Following extubation, the patient started demanding pain medications and eventually signed out AMA. When confronted with the story about the walnut allergy, the patient did not deny the fact that she may not have a walnut tabatha rgy. The patient has been in 3 hospitals in the last week and it is very possible that this is a man ifestation of Munchausen syndrome. 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 The patient walked out AMA without any discussion about followup. [id number]/[facility] #: [id number]
[2018-08-30] MEDS ORDERED: Gabapentin CAP(*) 300 MG PO SCH (21:00)
[2018-08-30] MEDS ORDERED: Famotidine IV* 10 MG/ML 2 ML (20 mg) IV SCH (21:00)
[2018-08-30] MEDS ORDERED: Famotidine IV * 20 MG in NS 0.9% 100 ML* 100 ML IVPB SCH (21:00)
== END 2018-08-30 18:00 | disposition left against medical advice (07) | DRG 883 ==
LOC: ED 04:21 → ICU 07:33
PROVIDERS: ADMIT Internal Medicine Critical Care Medicine; ATTEND Internal Medicine Critical Care Medicine
PROC: 0BH17EZ Insertion of Endotracheal Airway into Trachea, Via Natural or Artificial Opening (ICD-10-PCS; principal; 2018-08-30)
PROC: 5A1935Z Respiratory Ventilation, Less than 24 Consecutive Hours (ICD-10-PCS; 2018-08-30)
DX: F68.10 Factitious disorder imposed on self, unspecified (principal); T78.05XA Anaphylactic reaction due to tree nuts and seeds, initial encounter; Z68.41 Body mass index [BMI] 40.0-44.9, adult; D68.61 Antiphospholipid syndrome; E87.2 Acidosis; E66.01 Morbid (severe) obesity due to excess calories; E87.8 Other disorders of electrolyte and fluid balance, not elsewhere classified; F43.10 Post-traumatic stress disorder, unspecified; Z88.6 Allergy status to analgesic agent; Z91.018 Allergy to other foods; Z88.0 Allergy status to penicillin; Z91.013 Allergy to seafood; Z88.8 Allergy status to other drugs, medicaments and biological substances; Z86.718 Personal history of other venous thrombosis and embolism; Z79.01 Long term (current) use of anticoagulants; Z79.899 Other long term (current) drug therapy; Z83.3 Family history of diabetes mellitus; Z82.49 Family history of ischemic heart disease and other diseases of the circulatory system; Z80.3 Family history of malignant neoplasm of breast
CPT/HCPCS: 36415; 71045; 80048; 80053; 83605; 85025; 85610; 87641; 94640; 99285; A9270-GY; J0171; J0330; J1200; J2250; J2704; J2930; J3010; J7611

== ENCOUNTER 2019-07-26 17:55 | Emergency (ER) | payer MEDICAID ==
--- OUTSIDE RECORDS SUMMARY | 2019-07-26 18:23 | XMS REPORT | Continuity of Care Document ---
:1985 Author Organization [facility] Care Team Providers Name Role Phone RODRIGO GOVEA Admitting Physician RODRIGO GOVEA Attending Physician Allergies and Intolerances Code Code Allergy Type Reaction Severity Start End Status System Substance Date Date 762018 RXNorm Avelox Drug Unknown Active allergy (disorder ) RXNorm Cephalosporins Drug Unknown Active allergy (disorder ) 2582 RXNorm Clindamycin Drug Hives Moderate Active allergy (disorder ) 59315 RXNorm penicillin Drug hives, Resp Severe Active allergy distress 986 (disorder ) 5640 RXNorm Ibuprofen Drug hives, Severe Active allergy swelling 986 (disorder ) RXNorm Shellfish Food Anaphylaxis Severe Active allergy 986 (disorder ) 345532 RXNorm walnut Drug Unknown Active allergy 986 (disorder ) 07130 RXNorm Toradol Drug Hives Unknown Active allergy 986 (disorder ) 63337 RXNorm Tramadol Drug hives, Severe Active allergy swelling 016 (disorder ) 7052 RXNorm Morphine Drug hives, Severe 06/29/ allergy swelling 2019 (disorder ) Medications RxNorm Medication Dose Route Instructions Start End Status Date Date 435 Albuterol 2 puff inhalation inhaled 4 times Active per day as needed. 28097 cyclobenzaprine 10 mg oral orally 3 times Active per day 29331 gabapentin 900 mg oral orally daily Active 4673 Hydroxyzine 25 to oral orally every day Active 50 mg at bedtime 25169 lamotrigine 400 mg oral orally daily Active 65069 quetiapine 800 mg oral orally daily Active 95109 Sertraline 200 mg oral orally daily Active 543838 Trazodone 300 mg oral orally every day Active Hydrochloride 300 at bedtime MG Oral Tablet 566617 1 ML Enoxaparin 100 mg subcutaneous subcutaneously Completed sodium 100 MG/ML every 12 hours 020 Prefilled Syringe (7 days) 7742727 Acetaminophen 325 2 tab oral orally every 4 Completed MG / Oxycodone hours as needed. 020 Hydrochloride 5 MG (as needed for Oral Tablet pain; MDD= 4 tablets) 7620484 Acetaminophen 325 1 tab oral orally every 6 Completed MG / Oxycodone hours as needed. 020 Hydrochloride 5 MG (as needed for Oral Tablet pain; MDD= 4 tablets) 88052 gabapentin 400 mg oral orally 3 times Completed per day (per pt- only takes 400 mg tid, bt pt is prescribed 800mg tid ) 5553 Hydroxyzine 25 to oral orally every day Completed 50 mg at bedtime 880696 Hydroxyzine 50 mg oral orally every 6 Completed Pamoate 50 MG Oral hours as needed. Capsule (as needed) 97578 lamotrigine 400 mg oral orally every day Completed at bedtime 3058390 NITROFURANTOIN, 100 mg oral orally every 12 Completed MACROCRYSTALS 25 hours (must MG / administer with Nitrofurantoin, a meal/food) Monohydrate 75 MG Oral Capsule 32693 quetiapine 800 mg oral orally every day Completed at bedtime 46459 Sertraline 200 mg oral orally daily Completed 67701 Trazodone 450 mg oral orally every day Completed at bedtime 015635 Warfarin Sodium 7.5 mg oral orally daily (7 Completed 7.5 MG Oral Tablet days) 020 Medications At Time Of Discharge RxNorm Medication Dose Route Instructions Start End Date Status Date 435 Albuterol 2 puff inhalation inhaled 4 times Active per day as needed. 17854 cyclobenzaprine 10 mg oral orally 3 times Active per day 21489 gabapentin 900 mg oral orally daily Active 5553 Hydroxyzine 25 to 50 oral orally every day Active mg at bedtime 56913 lamotrigine 400 mg oral orally daily Active 02838 quetiapine 800 mg oral orally daily Active 33832 Sertraline 200 mg oral orally daily Active 673917 Trazodone 300 mg oral orally every day Active Hydrochloride 300 at bedtime MG Oral Tablet Problems Code Code System Problem Name Start Date End Date Status 3843692 SNOMED-CT Lower urinary tract infectious 06/2018 Active disease 766141069 SNOMED-CT Noncompliance with medication 10/18/2015 U Active regimen 9878834 SNOMED-CT Retrosternal pain 10/18/2015 U Active 981728995 SNOMED-CT Morbid obesity 10/18/2015 U Completed 71630714 SNOMED-CT Hyponatremia 10/18/2015 U Active 651479947 SNOMED-CT Random blood sugar raised 10/18/2015 U Active 132172731 SNOMED-CT Morbid obesity 10/18/2015 U Active 72958343 SNOMED-CT Hypertensive disorder 10/18/2015 U Active 646629481 SNOMED-CT Body mass index 30+ - obesity 10/18/2015 U Active Singer filter placement 2014 U Active 111676426 SNOMED-CT Factor V Leiden mutation U U Active 53034145 SNOMED-CT Pulmonary embolism U U Active 182974893 SNOMED-CT Deep venous thrombosis U U Active 371654405 SNOMED-CT Factor VIII deficiency U U Active 492949557 SNOMED-CT Jose-Danlos syndrome U U Active 621408729 SNOMED-CT Anxiety disorder U U Active 902959919 SNOMED-CT Asthma U U Active Back surgery x 2 U U Active Left knee surgery x 5 U U Active Left shoulder surgery U U Active Sinus surgery U U Active Eye surgeries x 2 U U Active 434847837 SNOMED-CT Angina U Active Procedures Code Code System Procedure Date 21457149 SNOMED CT Cholecystectomy U 25948760 SNOMED CT Appendectomy U Results Laboratory Results Order: CBC DIFF Specimen Source: Body Site : Legend: (G,H) = High, (GG,HH,CH,#H) = Above High Threshold, (#,L) = Low, (##, CL,#L,LL) = Below Low Threshold, (C,CC,CA,#A,A) = Abnormal LOINC Test Result Flag Range Units Date 1WBC 5.5 4.8-10.8 K/uL 07/12/2019 15:10 1RBC 3.52 L 4.20-5.40 M/uL 07/12/2019 15:10 1HEMOGLOBIN 11.1 L 12.0-16.0 gm/dL 07/12/2019 15:10 1HEMATOCRIT 34.0 L 36.0-48.0 % 07/12/2019 15:10 1MCV 96.6 80.0-100.0 fL 07/12/2019 15:10 1MCHC 32.8 30.0-36.5 % 07/12/2019 15:10 1MCH 31.7 27.0-34.0 pg 07/12/2019 15:10 1RDW 17.7 H 11.0-15.0 % 07/12/2019 15:10 1PLATELET 277 130-450 K/uL 07/12/2019 15:10 1MPV 7.2 6.0-12.0 fL 07/12/2019 15:10 1NE% 62 37-80 % 07/12/2019 15:10 1LY% 29 10-50 % 07/12/2019 15:10 1MO% 8 0-12 % 07/12/2019 15:10 1EO% 0 <=8 % 07/12/2019 15:10 1BA% 0 <=3 % 07/12/2019 15:10 1NE# 3.4 1.8-8.6 K/uL 07/12/2019 15:10 1LYMPH# 1.6 0.5-5.0 K/uL 07/12/2019 15:10 1MONO# 0.4 0.0-1.3 K/uL 07/12/2019 15:10 1EOS# 0.0 0.0-0.9 K/uL 07/12/2019 15:10 1BASO# 0.0 0.0-0.3 K/ul 07/12/2019 15:10 Performing Lab Footnotes:[facility] - [id number] - [address] [place] [id number] AIDE OLMOS Order: COMPREHENSIVE PANEL Specimen Source: Body Site: Legend: (G,H) = High, (GG,HH,CH,#H) = Above High Threshold, (#,L) = Low, (##,CL,#L,LL) = Below Low Threshold, (C,CC,CA,#A,A) = Abnormal LOINC Test Result Flag Range Units Date 1SODIUM 138 136-145 mmol/L 07/12/2019 15:10 1POTASSIUM 4.0 3.5-5.2 mmol/L 07/12/2019 15:10 1CHLORIDE 107 100-108 mmol/L 07/12/2019 15:10 1CO2 19 L 21-32 mmol/L 07/12/2019 15:10 1GLUCOSE 109 H 70-100 mg/dL 07/12/2019 15:10 1BUN 7 7-21 mg/dL 07/12/2019 15:10 1CREATININE 0.8 0.6-1.3 mg/dL 07/12/2019 15:10 Interpretive Melinda: 1Normal Kidney Function or Mild Disease - GFR >OR= 60 Chronic Kidney Disease - GFR 15-59 Renal Failure - GFR < 15 GFR not calculated on patients under 18 years of age. Calculated (estimated) GFR is based on the MDRD Study equation, which assumes a steady state for creatinine. Estimated GFR may not be appropriate for medication dosing. 1CALCIUM 8.5 8.5-10.8 mg/dL 07/12/2019 15:10 1GFR >60 07/12/2019 15:10 1T BILI 0.4 0.0-1.2 mg/dL 07/12/2019 15:10 1T PROTEIN 7.5 6.4-8.2 gm/dL 07/12/2019 15:10 1ALBUMIN 4.2 3.4-4.8 gm/dL 07/12/2019 15:10 1ALK PHOS 65 40-150 U/L 07/12/2019 15:10 1ALT (SGPT) 12 0-55 U/L 07/12/2019 15:10 1AST (SGOT) 19 5-37 U/L 07/12/2019 15:10 Performing Lab Footnotes:[facility] - [id number] - [address] [place] [id number] A[address] OLMOS Order: PT/INR Specimen Source: Body Site: Legend: (G,H) = High, (GG,HH, CH,#H) = Above High Threshold, (#,L) = Low, (##,CL,#L,LL) = Below Low Threshold , (C,CC,CA,#A,A) = Abnormal LOINC Test Result Flag Range Units Date 1PROTIME 11.6 9.4-12.4 sec 07/12/2019 15:10 1INR 1.0 07/12/2019 15:10 Interpretive Melinda: 1 INR INTERPERTATION 2.0-3.0 THERAPEUTIC MONITORING 2.5-3.5 HEART VALVE REPLACEMENT Performing Lab Footnotes:[facility] - [id number] [place] [address] AIDE OLMOS Order: PTT Specimen Source: Body Site: Legend: (G,H) = High, (GG,HH,CH, #H) = Above High Threshold, (#,L) = Low, (##,CL,#L,LL) = Below Low Threshold, (C ,CC,CA,#A,A) = Abnormal LOINC Test Result Flag Range Units Date 1PTT 19.6 L 25.6-36.4 sec 07/12/2019 15:10 Performing Lab Footnotes:[facility] - [id number] - [address] [place] [address] AIDE [id number] Radiology Results Order: CT-HEAD W/O CONTRASTExam Completion Date:07/12/2019 14: 3:[address] BRAIN WITHOUT CONTRAST CLINICAL INFORMATION: Head injury x3 with persistent HORNER and visual changes, patient on Coumadin -- INJURY, UNSPECIFIED COMPARISON: None. TECHNIQUE : CT of the brain was performed without intravenous contrast. Multiplanar reformations were acquired. Automated exposure control, adjustment of the mA and /or kV according to patient size, and/or iterative reconstruction techniques were utilized for radiation dose optimization. FINDINGS: BRAIN PARENCHYMA : No abnormal attenuation is visualized within the brain parenchyma. No mass effect or abnormal attenuation to suggest an acute or subacute transcortical infarction is appreciated. No intracranial hemorrhage is evident. No intracranial mass is identified. VENTRICLES AND EXTRA-AXIAL SPACES: The ventricles, sulci and fissures are normal in size and configuration for the patient's age.No extra-axial fluid collection is present. BONES: Intact. EXTRACRANIAL STRUCTURES: The visualized paranasal sinuses are clear. Post surgical changes in the medial abrams of both maxillary sinuses. The visualized mastoid air cells are clear. OTHER: None IMPRESSION: No acute intracranial abnormality. END OF IMPRESSION I have personally reviewed the images and the Resident's/Fellow's interpretation and agree with or edited the findings. [facility] submits Radiology results to [facility] and [facility] then provides those same results to [facility]. All results are available to [facility] and [facility] provider portal users.[facility] DICOM images are available to the [facility] provider portal usersonly. [facility] DICOM images are not available to the [facility] provider portalusers. There is no current [facility] cross-[facility] functionality allowing images to be available through the [facility] to [facility] connectivity. Interpreted By: Eb Milligan M.D. Electronically signed By: Cydney Taylor M.D. Read By: CYDNEY TAYLOR Date: 07/12/2019 15:48 Social History Code Code System Social History Observation Description Dates Observed 881295617 SNOMED CT Current Smoking Status Never smoker UNK AdministrativeGender Sex Assigned At Unknown Vital Signs Code Code System Vitals Value Date 8310-5 LOINC Body Temperature 97.9 [degF] 07/12/2019 8865-8 LOINC Pulse Rate 95 {beats}/min 07/12/2019 9279-1 LOINC Respiratory Rate 14 /min 07/12/2019 97122-3 LOINC O2% BldC Oximetry 96 % 07/12/2019 8480-6 LOINC BP Systolic 114 mm[Hg] 07/12/2019 8462-4 LOINC BP Diastolic 67 mm[Hg] 07/12/2019 8302-2 LOINC Height 63 [in_i] 07/12/2019 99062-7 LOINC Weight 108 kg 07/12/2019 3140-1 LOINC Body surface area Derived from formula 2.08 m2 07/12/2019 93705-6 LOINC BMI (Body Mass Index) 42.1 kg/m2 07/12/2019 Goals Section No data in the system Health Concerns No data in the systemEncounter Diagnosis Date Code Code System Diagnosis Status F07.81 ICD10 POSTCONCUSSIONAL SYNDROME Active Advance Directives [facility] Directive Type Effective Date Fuel Oil Clerk Notes Supporting Document Name Address Phone No Directive 06/29/2018 Not Specified Not Specified Not Specified Gauri Allen - No Type 12:29:00 AM Mother - specified [phone], Encounters Encounter Diagnosis Location Date POSTCONCUSSIONAL SYNDROME [facility] 07/12/2019 Family History Relationship: Father Health Problem Age At Onset Notes Alive and well (Normal general body function) 58 Years Relationship: Mother Health Problem Age At Onset Notes Breast cancer (Carcinoma of breast) (Carcinoma of breast) 52 Years Functional Status Code Functional Condition Code System Date Status Independent adls SNOMED CT 07/12/2019 Active Appears well nourished/hydrated SNOMED CT 07/12/2019 Active Immunizations Vaccine Code Code System Vaccine Name Date Status UTD Completed Medical Equipment No data in the system Mental Status Code Cognitive Condition Code System Date Status Perrl SNOMED CT 07/12/2019 Active Oriented x [address] 07/12/2019 Active No acute distress SNOMED CT 07/12/[address] 07/12/2019 Active Assessment and Plan Assessments No data in the systemPlan Of Treatment No data in the systemPending Tests No data in the system Hospital Discharge Instructions No data in the system Reason for Visit Reason for Visit Head Injury
[2019-07-26] MEDS ORDERED: Ondansetron ODT TAB* 4 MG PO ONE (19:05)
[2019-07-26] MEDS ORDERED: HYDROcodone/ACETAMIN 5-325 MG* 1 TAB PO ONE (19:07)
--- NOTE | 2019-07-26 19:13 | ED ---
Shortness of Breath - HPI Summary HPI Summary: 33-year-old female presents with shortness of breath for past three days. States she's had right calf pain for the past week. She is on coumadin but states that her inr last week is subtherapeutic. States she's been on Lovenox for the past week. She did travel two weeks ago to [place]. She admits to occasional cough. No fevers. No sore throat. No sinus discharge. No vomiting. Admits to nausea. No vomiting. States this feels similar to the PEs and DVTs she's had in the past. She says she has sharp pain in the center of her chest. She states she is short of breath all the time. - History of Current Complaint Chief Complaint: EDShortnessOfBreath Time Seen by Provider: 07/26/19 18:54 - Allergy/Home Medications Allergies/Adverse Reactions: Allergies Allergy/AdvReac Type Severity Reaction Status Date / Time walnut Allergy Severe Anaphylatic Verified 07/26/19 18:10 Shock Cephalosporins Allergy Hives Verified 07/26/19 18:10 ibuprofen Allergy Hives Verified 07/26/19 18:10 iodine Allergy Itching Verified 07/26/19 18:10 ketorolac [From Toradol] Allergy Hives Verified 07/26/19 18:10 moxifloxacin [From Avelox] Allergy Hives Verified 07/26/19 18:10 Penicillins Allergy Hives Verified 07/26/19 18:10 raspberry Allergy Anaphylatic Verified 07/26/19 18:10 Shock shellfish derived Allergy Anaphylatic Verified 07/26/19 18:10 Shock tramadol Allergy Hives Verified 07/26/19 18:10 Tree Nuts Allergy Anaphylatic Verified 07/26/19 18:10 Shock Home Medications: Home Medications Acetaminophen TAB* [Tylenol TAB*] 650 mg PO Q4H PRN tab 07/19/18 [Rx Confirmed 07/26/19] Albuterol HFA INHALER* [Ventolin HFA Inhaler*] 2 puff INH Q4H PRN 07/19/18 [ History Confirmed 07/26/19] Gabapentin CAP(*) [Neurontin 300 CAP(*)] 900 mg PO BEDTIME 08/04/18 [History Confirmed 07/26/19] Sertraline* [Zoloft*] 200 mg PO BEDTIME 08/04/18 [History Confirmed 07/26/19] traZODone TAB* [Desyrel TAB*] 300 mg PO BEDTIME 08/04/18 [History Confirmed ] Cyclobenzaprine TAB* [Flexeril 10 MG TAB*] 10 mg PO TID PRN #21 tab 07/26/19 [Rx ] Enoxaparin(*) [Lovenox(*)] 100 mg SUBCUT Q12HR #13 syringe 07/26/19 [Rx] Quetiapine Fumarate [Seroquel XR 400 mg Tab.Er.24h] 800 mg PO DAILY 07/26/19 [ History Confirmed 07/26/19] Warfarin TAB(*) [Coumadin TAB(*)] 10 mg PO DAILY #7 tab 07/26/19 [Rx] hydrOXYzine HCL TAB* [Atarax 25 MG TAB*] 25 - 50 mg PO QPM PRN 07/26/19 [ History Confirmed 07/26/19] lamoTRIgine [Lamotrigine ER] 400 mg PO BEDTIME 07/26/19 [History Confirmed 07/25] PMH/Surg Hx/FS Hx/Imm Hx Endocrine/Hematology History: Reports: Hx Blood Disorders - Factor 5 Leiden, phospholipid disease, Hx Blood Transfusions, Other Endocrine/Hematological Disorders - iron deficiency anemia Denies: Hx Anticoagulant Therapy, Hx Bone Marrow Disease, Hx Diabetes, Hx Systemic Lupus Erythematosus, Hx Sickle Cell Disease, Hx Thyroid Disease, Hx Anemia, Hx Unexplained Bleeding Cardiovascular History: Reports: Hx Deep Vein Thrombosis, Other Cardiovascular Problems/Disorders - Factor 5 Leiden, phospholipid disease, IVC filter Denies: Hx Aneurysm, Hx Angina, Hx Angioplasty, Hx Auto Implanted Cardiovert Defib, Hx Cardiac Arrest, Hx Cardiomegaly, Hx Congenital Heart Disease, Hx Congestive Heart Failure, Hx Coronary Artery Disease, Hx Embolism, Hx Hypercholesterolemia, Hx Hypotension, Hx Hypertension, Hx Pacemaker/ICD, Hx Peripheral Vascular Disease, Hx Rheumatic Fever, Hx Syncope, Hx Valvular Heart Disease Respiratory History: Reports: Hx Asthma, Hx Pulmonary Embolism Denies: Hx Chronic Bronchitis, Hx Chronic Obstructive Pulmonary Disease (COPD ), Hx Cystic Fibrosis, Hx Lung Cancer, Hx Pleural Effusion, Hx Pneumonia, Hx Pulmonary Edema, Hx Sleep Apnea, Other Respiratory Problems/Disorders GI History: Reports: Hx Gastroesophageal Reflux Disease, Hx Gastrointestinal Bleed, Other GI Disorders - Roxana fundoplication Denies: Hx Cirrhosis, Hx Crohn's Disease, Hx Diverticulosis, Hx Gall Bladder Disease, Hx Irritable Bowel, Hx Jaundice, Hx Obstructive Bowel, Hx Ileostomy, Hx Pyloric Stenosis, Hx Ulcer Comment Only: Hx Hiatal Hernia - ROXANA FUNDOPLICATION History: Reports: Hx Kidney Stones Denies: Hx Acute Renal Failure, Hx Benign Prostatic Hyperplasia, Hx Chronic Renal Failure, Hx Dialysis, Hx Kidney Infection, Hx Renal Disease, Other Problems/Disorders Musculoskeletal History: Reports: Other Musculoskeletal History - lower back surgery with hardware, ED Denies: Hx Arthritis, Hx Back Problems, Hx Bursitis, Hx Congenital Bone Abnormalities, Hx Fibromyalgia, Hx Gout, Hx Orthopedic Injury, Hx Osteoporosis, Hx Scoliosis, Hx Tendonitis Sensory History: Reports: Hx Vision Problem - 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 Denies: Hx Contacts or Glasses, Hx Deafness, Hx Hearing Aid Opthamlomology History: Reports: Hx Vision Problem - 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 Denies: Hx Contacts or Glasses Neurological History: Denies: Hx Dementia Psychiatric History: Reports: Hx Anxiety, Hx Post Traumatic Stress Disorder Denies: Hx Attention Deficit Hyperactivity Disorder, Hx Eating Disorder, Hx Depression, Hx Panic Disorder, Hx Inpatient Treatment, Hx Community Mental Health Tx, Hx Schizophrenia, Hx Bipolar Disorder, Hx Suicide Attempt, Hx of Violent Episodes Against Others, Hx Substance Abuse, Other Psychiatric Issues/ Disorders - Surgical History Surgery Procedure, Year, and Place: jessica,appy,SINUS ,BACK SX WITH HARDWARE,C- SECTIONS - Immunization History Date of Tetanus Vaccine: utd Date of Influenza Vaccine: fall 2017 Infectious Disease History: No Infectious Disease History: Denies: Hx Hepatitis, Hx Tuberculosis, Traveled Outside the [place] in Last 30 Days - Family History Known Family History: Positive: Cardiac Disease, Diabetes Family History: Breast CA - mom - Social History Alcohol Use: None Hx Substance Use: No Substance Use Type: Reports: None Hx Tobacco Use: No Smoking Status (MU): Never Smoked Tobacco Review of Systems Negative: Fever Positive: Chest Pain Positive: Shortness Of Breath, Cough Positive: Myalgia - right calf pain All Other Systems Reviewed And Are Negative: Yes Physical Exam Triage Information Reviewed: Yes Vital Signs On Initial Exam: Initial Vitals Temp Pulse Resp BP Pulse Ox 97.7 F 88 19 123/76 97 07/26/19 18:07 07/26/19 18:07 07/26/19 18:07 07/26/19 18:07 07/26/19 18:07 Vital Signs Reviewed: Yes Appearance: Positive: Well-Appearing Skin: Positive: Warm, Dry Head/Face: Positive: Normal Head/Face Inspection Eyes: Positive: Normal, Conjunctiva Clear ENT: Positive: Pharynx normal Respiratory/Lung Sounds: Positive: Clear to Auscultation, Breath Sounds Present Cardiovascular: Positive: Normal, RRR Musculoskeletal: Positive: Strength/ROM Intact - right calf, Other - tenderness right calf, good pulses Neurological: Positive: Normal Psychiatric: Positive: Normal Procedures - Sedation Patient Received Moderate/Deep Sedation with Procedure: No Diagnostics - Vital Signs Vital Signs Temp Pulse Resp BP Pulse Ox 07/26/19 18:07 97.7 F 88 19 123/76 97 - Laboratory Result Diagrams: 07/26/19 21:47 07/26/19 21:47 Lab Statement: Any lab studies that have been ordered have been reviewed, and results considered in the medical decision making process. - Radiology chest Radiology Interpretation Completed By: ED Physician Summary of Radiographic Findings: no active disease - Ultrasound No standard instances Ultrasound Interpretation Completed By: Radiologist Summary of Ultrasound Findings: IMPRESSION: No acute DVT. - EKG No standard instances Cardiac Rate: NL EKG Rhythm: Sinus Rhythm Summary of EKG Findings: sinus rhythm Re-Evaluation - Re-Evaluation First Eval Re-Evaluation Time: 21:23 Comment: unable to get lab work. Second Eval Comment: discussed results with increase warfarin. Course/Dx - Course Course Of Treatment: 33-year-old female presents with shortness of breath for past three days. States she's had right calf pain for the past week. She is on coumadin but states that her inr last week is subtherapeutic. States she's been on Lovenox for the past week. She did travel two weeks ago to [place]. She admits to occasional cough. No fevers. No sore throat. No sinus discharge. No vomiting. Admits to nausea. No vomiting. States this feels similar to the PEs and DVTs she's had in the past. She says she has sharp pain in the center of her chest. She states she is short of breath all the time. On exam is not tachycardic or hypoxic. lungs CTA. tenderness right calf. Ultrasound of right calf shows no DVT. did not get CTA as will not change treatment. inr is 1.09. troponin zero. will increase warfarin to 10mg for next 3 days and bridge with lovenox. told follow up with primary to have inr rechecked. gave referral to [facility]. patient states has had concussion and flexeril was helping but ran out so will get another script. patient understand and agrees with plan. - Diagnoses Differential Diagnosis/HQI/PQRI: Positive: Bronchitis, Chest Wall Pain, Pulmonary Embolism Provider Diagnoses: Shortness of breath, Calf pain, Subtherapeutic international normalized ratio ( INR) - Critical Care Time Critical Care Statement: Critical care time is provided exclusive of any time spent performing procedures. Discharge ED - Sign-Out/Discharge Documenting (check all that apply): Patient Departure - Discharge Plan Condition: Good Disposition: HOME Prescriptions: Cyclobenzaprine TAB* [Flexeril 10 MG TAB*] 10 mg PO TID PRN #21 tab PRN Reason: Pain - Moderate Enoxaparin(*) [Lovenox(*)] 100 mg SUBCUT Q12HR #13 syringe Warfarin TAB(*) [Coumadin TAB(*)] 10 mg PO DAILY #7 tab Patient Education Materials: Leg Pain (ED) Referrals: Juno Connolly MD [Medical Doctor] - Additional Instructions: take lovenox 100mg twice a day for 7 days Take warfarin 10mg for next two days contact primary for further direction about warfarin Follow up with hematology Return to ED if develop any new or worsening symptoms - Billing Disposition and Condition Condition: GOOD Disposition: Home
[2019-07-26 21:59] LABS: ABS Lymphocytes 1.2 10^3/ul (1.0-4.8); ABS Monocytes 0.3 10^3/ul (0-0.8); ABS Neutrophils 3.4 10^3/ul (1.5-7.7); Hematocrit 28 % (35-47); Hemoglobin 9.9 g/dL (12.0-16.0); Lymphocyte % 24.9 %; Mean Corpuscular HGB Conc 36 g/dL (31-36); Mean Corpuscular Hemoglobin 34 pg (27-31); Mean Corpuscular Volume 96 fL (80-97); Mean Platelet Volume 6.6 fL (7.4-10.4); Platelet Count 247 10^3/uL (150-450); Red Blood Count 2.93 10^6 /uL (3.70-4.87); Red Cell Distribution Width 23 % (10-15)
[2019-07-26 22:06] LABS: Activated Partial Thrombo Time 28.6 seconds (26.0-38.0); INR 1.08 (0.82-1.09)
[2019-07-26 22:12] LABS: Albumin 3.8 g/dL (3.2-5.2); Albumin/Globulin Ratio 1.4 (1-3); BUN/Creatinine Ratio 11.9 (8-20); Calcium 8.6 mg/dL (8.6-10.3); EGFR African American 122.7 (>60); EGFR Non-African American 101.4 (>60); Globulin 2.8 g/dL (2-4); Potassium 3.6 mmol/L (3.5-5.0); Total Bilirubin 0.5 mg/dL (0.2-1.0); Total Protein 6.6 g/dL (6.4-8.9)
[2019-07-26] MEDS ORDERED: Enoxaparin(*) 100 MG/ML SYR SUBCUT ONE (22:29)
[2019-07-26 23:12] VITALS: BP 105/52
[2019-07-26] MEDS ORDERED: Warfarin TAB(*) 10 MG PO ONE (23:30)
== END 2019-07-26 23:27 | disposition home or self-care (01) ==
LOC: ED 17:55
DX: R06.02 Shortness of breath (principal); R07.9 Chest pain, unspecified; R05 Cough; M79.661 Pain in right lower leg; Z79.01 Long term (current) use of anticoagulants
CPT/HCPCS: 36415; 71046; 80053; 84484; 85025; 85610; 85730; 93005; 96372; 99284; A9270-GY; J1650